=== PATIENT | female | born 1935 | race Caucasian/White ===

== ENCOUNTER 2023-07-24 00:35 | Outpatient (REF) | payer MEDICARE, OTHER, SELFPAY ==
[2023-07-24 07:22] LABS: Calcium 8.6 mg/dL (8.5-10.1); Estimated GFR (African America 50 (>=60); Estimated GFR (Non-African Ame 42 (>=60)
== END 2023-07-24 00:36 | disposition home or self-care (01) ==
LOC: LAB 00:35
PROVIDERS: PCP Family Medicine; Visit Provider Family Medicine
DX: M81.0 Age-related osteoporosis without current pathological fracture (principal)
CPT/HCPCS: 36415; 82306; 82310; 82565

== ENCOUNTER 2024-06-18 08:17 | Inpatient (IN) | payer MEDICARE, OTHER, MEDICAID, SELFPAY ==
[2024-06-18] VITALS (35 sets, daily range): BP systolic 108–143; BP diastolic 72–104; PULSE 75–93; TEMP 36.4–36.9; O2SAT 83–99; BMI 18.2; BMI 18.0
--- NOTE | 2024-06-18 08:23 | XR_ITS ---
The [address] [address] Patient Name: BILL KO MRN: [id number] date: 1935 Sex: F Assigned Patient Location: ER Current Patient Location: ER Accession/Order Number: [id number] Exam Date: 06/18/2024 08:30 Report Date: 06/18/2024 08:57 At the request of: BETZAIDA MADRID Procedure: XR hip RT 2V w/ pelvis Exam: Radiographs: XR hip RT 2V w/ pelvis Reason for exam: fall, right hip injury and pain Comparison: Plain films dated 02/09/2018 XR/XR hip RT 2V w/ pelvis IMPRESSION: Contour irregularity along the right pubic body suggestive of acute fracture. Possible nondisplaced fracture of the right superior pubic ramus. Consider further evaluation with CT. Moderate right hip degenerative change. Lower extremity atherosclerotic calcifications. Remainder of the right hip radiographs is unremarkable. Electronically authenticated by: HUSSAIN MCLEAN Date: 06/18/2024 08:57
--- NOTE | 2024-06-18 08:23 | ED.FALL1 ---
HPI HPI - Fall General Chief Complaint: Fall Stated Complaint: FALL Time Seen by Provider: 06/18/24 08:17 History of Present Illness HPI Narrative: pt sent by EMS from [place] after being found on the floor after unwitnessed fall. Pt apparently injured the right hip - she has dementia and cannot give HPI or ROS. She struggles to answer simple questions such as last name and birthdate, which is apparently at her baseline. no sign of injury to the head, neck, torso or other extremities. We were told by [place] that the patient was a full code but her documentation lists DNC Related Data Home Medications ?Medication ?Instructions ?Recorded ?Confirmed amlodipine 5 mg tablet 5 mg PO DAILY 06/18/24 06/18/24 donepezil 10 mg tablet 10 mg PO BEDTIME 06/18/24 06/18/24 lovastatin 10 mg tablet 5 mg PO BEDTIME 06/18/24 06/18/24 mirtazapine 15 mg tablet 15 mg PO BEDTIME 06/18/24 06/18/24 sertraline 25 mg tablet 12.5 mg PO DAILY 06/18/24 06/18/24 Allergies Allergy/AdvReac Type Severity Reaction Status Date / Time clindamycin Allergy Unknown Unknown Verified 06/18/24 08:31 latex Allergy Unknown Unknown Verified 06/18/24 08:31 Sulfa (Sulfonamide Allergy Unknown Unknown Verified 06/18/24 08:31 Antibiotics) Opioid HPI Opioid Management Most Recent Pain and Opioid Data: Last Pain Scale 8 06/18/24 09:12 06/18/24 Last ED Pain Assessment 06/18/24 11:51 Last MAR Pain Assessment 06/18/24 09:12 [facility] PFS Medical History (Updated 06/18/24 @ 12:06 by Pratik Arndt) 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 - Personal history of non-Hodgkin lymphomas (ICD-10) History of anxiety ?Z86.59 - Personal history of other mental and behavioral disorders (ICD-10) Hx of primary hypertension ?Z86.79 - Personal history of other diseases of the circulatory system (ICD-10) Hx of chronic kidney disease ?Z87.448 - Personal history of other diseases of urinary system (ICD-10) History of depression ?Z86.59 - Personal history of other mental and behavioral disorders (ICD-10) History of malignant neoplasm of uterus ?Z85.42 - Personal history of malignant neoplasm of other parts of uterus (ICD-10) History of asthma ?Z87.09 - Personal history of other diseases of the respiratory system (ICD-10) Hx of osteoarthritis ?Z87.39 - Personal history of other diseases of the musculoskeletal system and connective tissue (ICD-10) Hx of osteoporosis ?Z87.39 - Personal history of other diseases of the musculoskeletal system and connective tissue (ICD-10) History of dementia ?Z86.59 - Personal history of other mental and behavioral disorders (ICD-10) Exam Narrative Exam Narrative: Nurses note and vital signs reviewed and patient is not hypoxic. afebrile General: The patient appears well and in no apparent distress. Patient is resting comfortably on cart. Skin: Warm, dry, no pallor noted. Head: Normocephalic, atraumatic Neck: Supple, trachea mid-line, no tenderness, no lymphadenopathy. Full ROM and no cervical spinal tenderness. The patient has no step-offs or crepitus noted Eyes: PERRLA, EOMI ENT: No facial injury. No oral or intraoral injury, no blood in posterior oropharynx Cardiovascular: Regular Rate and Rhythm Respiratory: Patient is in no distress, no accessory muscle use, lungs are clear to auscultation, no wheezing, rales or rhonchi Chest Wall: no tenderness, no flail chest, contusion, abrasion, or signs of trauma. Back: No thoracic vertebral or lumbar vertebral tenderness to palpation. No ecchymosis, abrasions, lacerations noted. Musculoskeletal: Tenderness to palpation of the right hip and right pelvis with pain on any attempted miniplate of the right lower extremity. She does not have any right leg length shortening. No right femoral tenderness. The remainder of the right lower extremity is unremarkable. No additional sign of long bone fracture, no tenderness, no swelling. Pulses at femoral, DP, PT, and popiteal were 2+ bilaterally. Moves all four extremities in all modalities with 5/5 strength. GI: Normal bowel sounds, no tenderness to palpation, no masses appreciated. No rebound, guarding, or rigidity noted. 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 Psychiatric: Cooperative Constitutional Vital Signs, click to edit/add: Last Vital Signs Temp 98.3 F 06/18/24 12:13 Pulse 86 06/18/24 10:30 Resp 25 H 06/18/24 10:30 BP 133/90 06/18/24 10:04 Pulse Ox 93 L 06/18/24 11:52 O2 Del Method Room Air 06/18/24 11:52 Course Vital Signs Vital signs: Vital Signs Temperature 97.6 F 06/18/24 08:23 Pulse Rate 85 06/18/24 08:23 Respiratory Rate 20 06/18/24 08:23 Blood Pressure 129/97 H 06/18/24 08:23 Pulse Oximetry 97 06/18/24 08:23 Temperature 98.3 F 06/18/24 12:13 Pulse Rate 86 06/18/24 10:30 Respiratory Rate 25 H 06/18/24 10:30 Blood Pressure 133/90 06/18/24 10:04 Pulse Oximetry 93 L 06/18/24 11:52 Oxygen Delivery Method Room Air 06/18/24 11:52 MDM - Fall MDM Narrative Medical decision making narrative: Patient sent by EMS from longterm to our ED for evaluation after being found on the floor following an unwitnessed fall. EKG obtained shortly after arrival as we were told she was full code. But review of her [place] paperwork indicates that she is DNRCC. Blood drawn and sent for evaluation. Xrays of the right hip and pelvis were ordered. X-ray revealed what appears to be a subcapital fracture with possible acetabular involvement. I ordered the patient undergo CT scanning of the right hip at the request of the radiologist. Peripheral IV was established, basic blood work drawn and sent for testing and the patient was ordered to receive IV Zofran to limit or prevent nausea and IV fentanyl for pain Before the CT was read, the patient's daughter who is also the medical power of privacy attorney came to the ED and I spoke with her about this patient. The changes to be seen on the right foot apparently are new or and although the purpling looks old, she asked if we could do an x-ray of that right foot, which I ordered. I also ordered her to receive 0.5 mg of Dilaudid IV for additional pain control. labs -white blood cell count 22.7. Left shift is noted. Cathed UA ordered. BMP reveals mild elevation of sodium, chloride, BUN, creatinine and glucose with a mild decrease in potassium. The changes in the right foot may be associated with some cellulitis, therefore the patient was ordered to receive IV Ancef. CT revealed superior and likely inferior pubic rami fractures but no femoral head, neck or body fractures. Pt & daughter informed of this. UA revealed acute UTI, which is likely the source of her leukocytosis. spoke with the daughter and we will admit the patient to treat the uti and help manage her care acutely due to difficulty using her walker to ambulate due to the pubic rami fractures. Dr Ramirez and i discussed the case and he agreed to obs [facility] admission Lab Data Attestation: I reviewed the patient's lab results. Labs: Lab Results 06/18/24 06/18/24 Range/Units 09:05 12:09 WBC 22.7 H (4.0-11.0) 10^3/uL RBC 4.36 (4.20-5.40) 10^6/uL Hgb 9.6 L (12.0-16.0) g/dL Hct 31.4 L (36.0-48.0) % MCV 72.0 L (81.0-99.0) fL MCH 22.0 L (26.7-34.0) pg MCHC 30.6 (29.9-35.2) g/dL RDW 25.8 H (11.0-15.0) % Plt Count 392 (150-450) 10^3/uL MPV 10.8 (9.5-13.5) fL Seg Neuts % (Manual) 85.0 H (43.0-75.0) Lymphocytes % (Manual) 3.0 L (20.5-60.0) % Monocytes % (Manual) 11.0 (1.7-12.0) % Eosinophils % (Manual) 0.0 L (0.9-7.0) % Basophils % (Manual) 1.0 (0.2-2.0) % Neutrophils # (Manual) 19.29 H (1.4-6.5) 10^3/uL Lymphocytes # (Manual) 0.68 L (1.20-3.80) 10^3/uL Monocytes # (Manual) 2.49 H (0.30-0.80) 10^3/uL Eosinophils # (Manual) 0.00 (0.00-0.70) 10^3/uL Basophils # (Manual) 0.22 H (0.00-0.10) 10^3/uL PT 12.1 H (9.0-11.6) sec INR 1.16 APTT 38.7 H (22.3-36.2) sec Sodium 146 H (136-145) mmol/L Potassium 3.3 L (3.5-5.1) mmol/L Chloride 109 H (98-107) mmol/L Carbon Dioxide 28.1 (21.0-32.0) mmol/L Anion Gap 12.2 BUN 22.0 H (7.0-18.0) mg/dL Creatinine 1.28 H (0.55-1.02) mg/dL Est GFR ( Amer) 48 L (>=60 mL/min/1.73m^2) Est GFR (Non-Af Amer) 39 L (>=60 mL/min/1.73m^2) BUN/Creatinine Ratio 17.2 Glucose 165 H (74-106) mg/dL Calcium 8.5 (8.5-10.1) mg/dL Urine Color Yellow (YELLOW) Urine Clarity Cloudy A (CLEAR) Urine pH 6.0 (5.0-9.0) Ur Specific [place] >=1.030 A (1.005-1.025) Urine Protein 30 A (NEG/TRACE) mg/dL Urine Glucose (UA) Negative (NEGATIVE) mg/dL Urine Ketones Negative (NEGATIVE) mg/dL Urine Occult Blood Trace-i (NEGATIVE) Urine Nitrite Positive A (NEGATIVE) Urine Bilirubin Negative (NEGATIVE) Urine Urobilinogen 2.0 A (0.2-1.0) EU/dL Ur Leukocyte Esterase Trace A (NEGATIVE) Urine RBC 5-10 A (0-2) #/HPF Urine WBC 2-5 A (NONE SEEN) #/HPF Ur Squamous Epith Cells Few A (NONE/RARE) #/LPF Ur Transition Epith Cell Rare A (NONE SEEN) #/LPF Urine Crystals None seen (None Seen) #/HPF Urine Bacteria Large A (NONE SEEN) #/HPF Urine Casts None seen (NONE SEEN) #/LPF Urine Mucus Small A (NONE SEEN) Ur Culture Indicated? Yes Imaging Data xr hip, ct hip, xr foot: Attestation: I have reviewed the pertinent imaging results. Radiologist's impression: ITS Impressions Hip/Pelvis X-Ray 06/18/24 08:23 IMPRESSION: Contour irregularity along the right pubic body suggestive of acute fracture. Possible nondisplaced fracture of the right superior pubic ramus. Consider further evaluation with CT. Moderate right hip degenerative change. Lower extremity atherosclerotic calcifications. Remainder of the right hip radiographs is unremarkable. Electronically authenticated by: HUSSAIN MCLEAN Date: 06/18/2024 08:[address] 06/18/24 09:03 IMPRESSION: 1. Fractures of right-sided pubic rami as described. Electronically authenticated by: LARA VEGA Date: 06/18/2024 11:52 ECG Data Attestation: I personally reviewed and interpreted this ECG as follows: Interpretation: EKG interpretation: Emergency Department physician interpretation. Right bundle branch block, left anterior fascicular block. Indeterminate axis. T wave inversion is noted in inferior leads. No ST segment elevation or depression. Discharge Plan Discharge Chief Complaint: Fall Clinical Impression: Closed fracture of right superior pubic ramus, Closed fracture of right inferior pubic ramus Time of Disposition Decision: 10:46 Prescriptions / Home Meds: No Action amlodipine 5 mg tablet 5 mg PO DAILY donepezil 10 mg tablet 10 mg PO BEDTIME lovastatin 10 mg tablet 5 mg PO BEDTIME mirtazapine 15 mg tablet 15 mg PO BEDTIME sertraline 25 mg tablet 12.5 mg PO DAILY Print Language: Lithuanian
--- NOTE | 2024-06-18 08:37 | ECG_ITS ---
[facility] Test Date: 2024-06-18 Pat Name: BILL KO Department: Room: 217 Gender: Female [employer] [facility]: : 1935 Requested By: Pratik Arndt Order Number: [id number] Reading MD: VERONICA KINNEY Measurements Intervals [place] Rate: 84 P: 76 WA: 150 QRS: -85 QRSD: 132 T: -64 QT: 382 QTc: 423 Interpretive Statements 1100 Sinus rhythm 1470 with occasional supraventricular premature complexes 2450 Right bundle branch block 2630 Left anterior fascicular block 3413 Cannot rule out septal myocardial infarction, probably old 7300 Indeterminate axis 9150 abnormal ECG Electronically Signed On 06-19-2024 8:11:52 EST by VERONICA KINNEY
--- OUTSIDE RECORDS SUMMARY | 2024-06-18 08:49 | XMS_ITS | CCD ---
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 Role Phone Timothy Washington Primary Care Provider Kristy Rowe Attending Provider TIMOTHY WASHINGTON Primary Care Unavailable CHERYL SUTTON Admitting Unavailable CHEYRL SUTTON Attending Unavailable CHERYL SUTTON Consulting Unavailable SUNI FAUST Consulting Unavailable CACHORRO FLANNERY Consulting Unavailable JUSTYN ANDREWS Consulting Unavailable MISC, DOCTOR Admitting Unavailable MISC, DOCTOR Attending Unavailable TIMOTHY WASHINGTON G Primary Care Unavailable MISC, DOCTOR Consulting Unavailable CACHORRO MEDRANO Consulting Unavailable STEPHANIALONGTIMOTHY Admitting Unavailable STEPHANIALONG, TIMOTHY John Attending Unavailable STEPHANIALONG, TIMOTHY John Consulting Unavailable STEPHANIALONG, TIMOTHY G Primary Care Unavailable WYATT MURRY Admitting Unavailable WYATT MURRY Attending Unavailable WYATT MURRY Consulting Unavailable JOSSY GEE Consulting Unavailable Furlong Timothy SNYDER Primary Care Provider [phone] TIMOTHY WASHINGTON Referring Unavailable STEPHANIALONG, TIMOTHY G Primary Care Unavailable STEPHANIALONG, TIMOTHY G Referring Unavailable STEPHANIALONG, TIMOTHY G Primary Care Unavailable ANNMARIENG, TIMOTHY G Attending Unavailable STEPHANIALONG, TIMOTHY G Referring Unavailable FURLONG, TIMOTHY G Primary Care Unavailable FURLONG, TIMOTHY G Attending Unavailable STEPHANIALONG, TIMOTHY G Referring Unavailable FURLONG, TIMOTHY G Primary Care Unavailable Unavailable Unavailable Unavailable Allergies Allergy Classification Reported Allergen(s) Allergy Type Date of Onset Reaction(s) Facility (10 sources) Clindamycin; Translations: [CLINDAMYCIN] Drug Allergy 0 Rash [facility] (11 sources) Latex; Translations: [latex] Allergy to substance 3 Rash [facility] (10 sources) Sulfonamides (Antibiotic); Translations: [SULFA (SULFONAMIDE ANTIBIOTICS)] Allergy to substance 3 Other (See Comments) [facility] (1 source) Sulfonamides (Antibiotic) Drug allergy (disorder) 5 [facility] Medications Current Medications Medication Drug Class(es) Dates Sig (Normalized) Sig (Original) amLODIPine 5 mg oral tablet (7 sources) Dihydropyridine Calcium Channel Hernan Start: 01-30-2023 take 1 tablet by mouth once daily amLODIPine (NORVASC) 5 mg tablet TAKE ONE TABLET BY MOUTH ONCE DAILY 30 tablet 10 01/30/2023 Active Start: 02-20-2020 take 5 mg by mouth once daily Amlodipine Active 5 MG Oral Daily February 20, 2020 10:23am antiox #8/om3/dha/epa/lut/ze ax (PRESERVISION AREDS 2, OMEGA-3, ORAL) (6 sources) antiox #8/om3/dh a/epa/lut/zeax (PRESERVISION AREDS 2, OMEGA-3, ORAL) Take by mouth. Active antiox #8/om3/dh a/epa/lut/zeax (PRESERVISION AREDS 2, OMEGA-3, ORAL) Take by mouth. 0 Active diaper,brief,adult,disposabl e misc (1 source) Start: 03-01-2024 diaper,brief,adult,disposabl e misc Indications: Urinary incontinence, unspecified type 1 Unit by miscellaneous route 3 (three) times a day. 96 each 11 03/01/2024 Active docusate sodium 50 mg / sennosides, assisted 8.6 mg oral tablet (7 sources) Start: 11-10-2019 take 2 tablets by mouth once daily sennosides-docusate sodium (SENOKOT-S) 8.6-50 mg Take 2 tablets by mouth nightly. 11/10/2019 Active donepezil hydrochloride 10 m g oral tablet (6 sources) Start: 05-20-2022 take 1 tablet by mouth once daily donepeziL (ARICEPT) 10 mg tablet TAKE ONE TABLET BY MOUTH DAILY 90 tablet 3 05/20/2022 Active 120 actuat fluticasone propionate 0.044 mg/actuat metered dose inhaler (9 sources) Cortico steroid Start: 07-22-2023 take 1 puff(s) by inhalat ion in the morning fluticasone furoate (ARNUITY ELLIPTA) 100 mcg/actuation blister with device Indications: Moderate persistent asthma, unspecified whether complicated Inhale 1 puff in the morning. 1 each 5 07/22/2023 Active Start: 07-21-2023 End: 07-22-2023 take 2 puff(s) by inhalation in the morning fluticasone propionate (FLOVENT HFA) 44 mcg/actuation inhaler Inhale 2 puffs in the morning and 2 puffs before bedtime. 10.6 g 2 07/23/2023 Active Start: 02-20-2020 take 1 puff(s) by in halation twice daily Fluticasone Propionate Active 2 PUFF Inhalation Twice daily February 20, 2020 10:23am Start: 07-02-2012 End: 07-21-2023 take 2 puff(s) by inhalation in the morning fluticasone propionate (FLOVENT HFA) 44 mcg/actuation inhaler Indications: severe chronic obstructive pulmonary disease Inhale 2 puffs in the morning and 2 puffs before bedtime. Indications: worsening of debilitating chronic lung disease called COPD. 0 07/02/2012 07/21/2023 Discontinued (Reorder) lovastatin 10 mg oral tablet (7 sources) HMG-CoA Reductase Inhibitor Start: 09-15-2022 take 0.5 tablet by mouth once daily lovastatin (MEVACOR) 10 mg tablet TAKE 1/2 TABLET BY MOUTH DAILY 45 tablet 1 09/15/2022 Active Start: 02-20-2020 take 10 mg by mouth once daily Lovastatin Active 10 MG Oral Daily February 20, 2020 10:23am mirtazapine 15 mg oral tablet (7 sources) Start: 08-14-2022 take 1 tablet by mouth once daily mirtazapine (REMERON) 15 mg tablet TAKE ONE TABLET BY MOUTH DAILY 30 tablet 5 08/14/2022 Active Start: 02-20-2020 take 15 mg by mouth once daily Mirtazapine Active 15 MG Oral Daily February 20, 2020 10:23am multivitamin (THERAGRAN) tablet (6 sources) Start: 12-24-2004 take 1 tablet by mouth in the morning multivitamin (THERAGRAN) tablet Take 1 tablet by mouth in the morning. 12/24/2004 Active Start: 12-24-2004 take 1 tablet by valeri th in the morning multivitamin (THERAGRAN) tablet Take 1 tablet by mouth in the morning. 0 12/24/2004 Active Yjmhrvtyqroj-Xnde-Pwpnj Acid (1 source) Start: 02-20-2020 take 1 tablet by mouth once daily Tvcacyrgivdf-Oitq-Lmymy Acid Active 1 TAB Oral Daily February 20, 2020 10:23am [place]-3 Fatty Acids (1 source) Start: 02-20-2020 take 1000 mg by mouth once daily [place]-3 Fatty Acids Active 1000 MG Oral Daily February 20, 2020 10:23am pantoprazole 40 mg extended release oral tablet (1 source) Proton Pump Inhibitor Start: 02-20-2020 take 40 mg by mouth once daily Pantoprazole Active 40 MG Oral Daily February 20, 2020 10:23am polyethylene glycol 3350 [id number] mg powder for oral solution (5 sources) Osmotic Laxative Start: 11-12-2023 polyethylene glycol (GLYCOLAX) 17 gram/dose powder TAKE 17 GRAMS BY MOUTH IN THE MORNING 510 g 5 11/12/2023 Active Start: 06-25-2023 polyethylene g lycol (GLYCOLAX) 17 gram/dose powder Take 17 g by mouth in the morning. 0 06/25/2023 Active sertraline 25 mg oral tablet (7 sources) Serotonin Reuptake Inhibitor Start: 02-20-2020 take 25 mg by mouth once daily Sertraline Active 25 MG Oral Daily February 20, 2020 10:23am take 0.5 tablet by m outh every other day sertraline (ZOLOFT) 25 mg tablet Indications: anxiety with depression Take 0.5 tablets (12.5 mg total) by mouth every other day Indications: anxiousness associated with depression. Active Vitamin D3-Vitamin K2 (1 source) Start: 02-20-2020 take 1 tablet by mouth once daily Vitamin D3-Vitamin K2 Active 1 TAB Oral Daily February 20, 2020 10:23am Completed/Discontinued Medications Medication Drug Class(es) Dates Sig (Normalized) Sig (Original) acetaminophen 500 mg oral tablet (1 source) Start: 07-28-2023 End: 07-28-2023 acetaminophen (TYLENOL EXTRA STRENGTH) tablet 500 mg Start: 07-28-2023 End: 07-28-2023 acetaminophen (TYLENOL EXTRA STRENGTH) tablet 500 mg Calcium Carbonate / vitamin D3 (6 sources) End: 03-01-2024 take 2 tablets by mouth in the morning calcium carbonate/vitamin D3 (CALCIUM 600 + D,3, ORAL) Take 2 tablets by mouth in the morning. 03/01/2024 Discontinued (Therapy completed) take 2 tablets by mo uth in the morning calcium carbonate/vitamin D3 (CALCIUM 60 0 + D,3, ORAL) Take 2 tablets by mouth in the morning. 0 Active 100 ml zoledronic acid 0.05 mg/ml injection (1 source) Bisphosphonate Start: 07-28-2023 End: 07-28-2023 zoledronic acid (RECLAST) IVPB 5 mg/100 mL in mannitol 5% and water (0.05 mg/mL premix) Start: 07-28-2023 End: 07-28-2023 zoledronic acid (RECLAST) IV PB 5 mg/100 mL in mannitol 5% and water (0.05 mg/mL premix) Problems Active Problems Problem Classification Problem Date Documented Date Episodic/Chronic Allergic reactions (1 source) Dermatitis, unspecified; Translations: [Allergic contact dermatitis] Episodic Anxiety disorders (7 sources) Anxiety; Translations: [Anxiety disorder, unspecified] Onset: 04-09-2022 04-09-2022 Chronic Asthma (9 sources) Unspecified asthma, uncomplicated; Translations: [Asthma] Onset: 11-04-2019 04-09-2022 Chronic Cancer of ovary (1 source) Personal history of malignant neoplasm of ovary; Translations: [PERSONAL HX MALIG NEOPLASM OVARY] Onset: 02-01-2020 Episodic Cancer of stomach (1 source) Personal history of other malignant neoplasm of stomach; Translations: [PERS HX OTH MALIG NEOPLASM STOMACH] Onset: 02-01-2020 Episodic Cancer of uterus (1 source) Personal history of malignant neoplasm of other parts of uterus; Translations: [PERS HX MAL NEOPLSM OTH PART UTRUS] Onset: 02-01-2020 Episodic Chronic kidney disease (7 sources) Chronic kidney disease, unspecified; Translations: [Chronic kidney disease stage 3] Onset: 02-01-2020 04-09-2022 Chronic Chronic kidney disease (1 source) Chronic kidney disease; Translations: [Chronic kidney disease, stage 3b] Onset: 12-10-2023 Chronic obstructive pulmonary disease and bronchiectasis (8 sources) Chronic obstructive pulmonary disease, unspecified; Translations: [Chronic obstructive lung disease] Onset: 01-27-2013 04-09-2022 Chronic Delirium, dementia, and amnestic and other cognitive disorders (7 sources) Senile dementia; 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] Onset: 10-13-2022 10-13-2022 Chronic Diseases of white blood cells (1 source) Elevated white blood cell count, unspecified; Translations: [ELEVATED WHITE BLOOD CELL COUNT UNS] Onset: 11-04-2019 Chronic Disorders of lipid metabolism (8 sources) Hypercholesterolemia; Translations: [Pure hypercholesterolemia, unspecified] Onset: 05-28-2016 04-09-2022 Chronic Essential hypertension (9 sources) Essential (primary) hypertension; Translations: [Essential hypertension] Onset: 11-04-2019 04-09-2022 Chronic External cause codes: Fall (2 sources) Other fall on same level, initial encounter; Translations: [Fall from bed, initial encounter] Onset: 11-04-2019 Genitourinary symptoms and ill-defined conditions (8 sources) Urinary incontinence; Translations: [Unspecified urinary incontinence] Onset: 10-13-2022 10-13-2022 Chronic Hypertension with complications and secondary hypertension (8 sources) Hypertensive chronic kidney disease with stage 1 through stage 4 chronic kidney disease, or unspecified chronic kidney disease; Translations: [Hypertensive renal disease] Onset: 02-01-2020 10-13-2022 Chronic Mood disorders (6 sources) Depressive disorder; Translations: [Depression] Onset: 04-30-2017 04-09-2022 Chronic Mood disorders (7 sources) Mood disorders; Translations: [Depression, unspecified] Onset: 05-04-2023 Resolved: 03-01-2024 05-04-2023 Osteoarthritis (6 sources) Osteoarthritis; Translations: [Unspecified osteoarthritis, unspecified site] Onset: 05-27-2016 04-09-2022 Chronic Osteoporosis (10 sources) Age-related osteoporosis without current pathological fracture; Translations: [Senile osteoporosis] Onset: 03-04-2018 03-04-2018 Chronic Other acquired deformities (6 sources) Acquired scoliosis; Translations: [Other secondary scoliosis, lumbar region] Onset: 11-03-2019 11-03-2019 Chronic Other nervous system disorders (6 sources) Spinal cord disease; Translations: [Disease of spinal cord, unspecified] Onset: 05-04-2023 05-04-2023 Chronic Other nervous system disorders (1 source) Disease of spinal cord, unspecified; Translations: [Disease of spinal cord, unspecified] Onset: 05-04-2023 Chronic Other skin disorders (1 source) Inflammatory dermatosis; Translations: [Dermatitis] Episodic Other skin disorders (1 source) Personal history of diseases of the skin and subcutaneous tissue; Translations: [History of ganglion cyst] Episodic Retinal detachments; defects; vascular occlusion; and retinopathy (6 sources) Retinal artery occlusion; Translations: [Unspecified retinal vascular occlusion] Onset: 04-09-2022 04-09-2022 Chronic Spondylosis; intervertebral disc disorders; other back problems (18 sources) Degeneration of cervical intervertebral disc; Translations: [Other cervical disc degeneration, unspecified cervical region] Onset: 11-03-2019 11-03-2019 Chronic Sprains and strains (1 source) Sprain of joints and ligaments of unspecified parts of neck, initial encounter; Translations: [SPRAIN JNT LIG UNS PARTS NECK INIT] Onset: 02-01-2020 Episodic Unclassified (1 source) Outpatient Infusion Onset: 07-28-2023 Unclassified (1 source) Dementia in other diseases classified elsewhere, moderate, without behavioral disturbance, psychotic disturbance, mood disturbance, and anxiety; Translations: [Dementia in other diseases classified elsewhere, moderate, without behavioral disturbance, psychotic disturbance, mood disturbance, and anxiety] Onset: 10-13-2022 Unclassified (1 source) CDK Onset: 12-10-2023 Urinary tract infections (5 sources) Urinary tract infection, site not specified; Translations: [UTI SITE NOT SPECIFIED] Onset: 11-04-2019 Episodic Past or Other Problems Problem Classification Problem Date Documented Da te Episodic/Chronic Cancer of ovary (6 sources) Malignant tumor of ovary; Translations: [Malignant neoplasm of unspecified ovary] Onset: 08-04-2012 Resolved: 10-13-2022 10-13-2022 Chronic Cancer of uterus (12 sources) Malignant neoplasm of uterus; Translations: [Malignant neoplasm of uterus, part unspecified] Onset: 09-24-1995 Resolved: 12-10-2023 04-09-2022 Chronic Non-Hodgkin`s lymphoma (12 sources) 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); Translations: [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]] Onset: 05-25-1997 Resolved: 10-13-2022 10-13-2022 Chronic Nutritional deficiencies (6 sources) Vitamin B deficiency; Translations: [Vitamin B deficiency, unspecified] Onset: 04-09-2022 04-09-2022 Episodic Other acquired deformities (6 sources) Degenerative spondylolisthesis; Translations: [Spondylolisthesis, site unspecified] Onset: 11-03-2019 11-03-2019 Episodic Other fractures (1 source) Stable burst fracture of first lumbar vertebra, initial encounter for closed fracture; Translations: [STBL BURST FX 1ST LV INIT BENSON FX] Onset: 11-04-2019 Episodic Other fractures (6 sources) Fracture of first lumbar vertebra; Translations: [Unspecified fracture of first lumbar vertebra, initial encounter for closed fracture] Onset: 11-03-2019 11-03-2019 Episodic Other non-traumatic joint disorders (1 source) Pain in right knee; Translations: [PAIN IN RIGHT KNEE] Onset: 11-04-2019 Episodic Other skin disorders (1 source) O/E - right healed foot ulcer; Translations: [Healed ulcer of right foot on examination] Pathological fracture (16 sources) Age-related osteoporosis with current pathological fracture, vertebra(e), initial encounter for fracture; Translations: [Pathological fracture of lumbar vertebra due to secondary osteoporosis] Onset: 11-03-2019 11-03-2019 Episodic Spondylosis; intervertebral disc disorders; other back problems (18 sources) Cervicalgia; Translations: [Dorsalgia, unspecified] Onset: 11-02-2019 11-03-2019 Episodic Results Test Name Value Interpretation Reference Range Facility COMPREHENSIVE METABOLIC PANE Fabien 12-10-2023 Albumin [Mass/Vol] 4.0 g/dL Normal 3.2-5.3 [facility] Comment on above: Performed By: #### C CATY, 33928-6 #### [facility] ([id number]) [address] [place] [address] ALP [Catalytic activity/Vol] 121 U/L Normal 39-130 [facility] Comment on above: Performed By: #### Lakshmi BYRNE, 15680-7 #### [facility] ([id number]) [address], [address] [place] [address] ALT [Catalytic activity/Vol] 24 U/L Normal 0-31 [facility] Comment on above: Performed By: #### Lakshmi BYRNE, 50879-7 #### [facility] ([id number]) [address], [address] [place] [address] Anion gap [Moles/Vol] 9 mmol/L Normal 5-15 [facility] Comment on above: Performed By: #### Lakshmi BYRNE, 48386-0 #### [facility] ([id number]) [address], [address] [place] [address] AST [Catalytic activity/Vol] 33 U/L Normal 0-41 [facility] Comment on above: Performed By: #### Lakshmi BYRNE, 12638-1 #### [facility] ([id number]) [address], [address] [place] [address] Bilirubin [Mass/Vol] 0.3 mg/dL Normal 0.3-1.2 [facility] Comment on above: Performed By: #### Lakshmi BYRNE, 57709-8 #### [facility] ([id number]) [address], [address] [place] [address] Calcium [Mass/Vol] 8.8 mg/dL Normal 8.5-10.5 [facility] Comment on above: Performed By: #### Lakshmi BYRNE, 29933-0 #### [facility] ([id number]) [address], [address] [place] [address] Chloride [Moles/Vol] 106 mmol/L Normal 98-109 [facility] Comment on above: Performed By: #### Lakshmi BYRNE, 81062-0 #### [facility] ([id number]) [address], [address] [place] [address] CO2 [Moles/Vol] 26 mmol/L Normal 22-32 [facility] Comment on above: Performed By: #### Lakshmi BYRNE, 56024-8 #### [facility] ([id number]) [address], [address] [place] [address] Creatinine [Mass/Vol] 1.14 mg/dL High 0.40-1.00 [facility] Comment on above: Result Comment: METH OD TRACEABLE TO IDMS STANDARD Performed By: #### Lakshmi BYRNE, 41074-0 #### [facility] ([id number]) [address], [address] [place] [address] GFR/1.73 sq M.predicted among non-blacks MDRD (S/P/Bld) [Vol rate/Area] 47 mL/min/{1.73_m2} Low >59 [facility] Comment on above: Result Comment: Reported eGFR is based on the CKD-EPI 2020 equation that does not use a race coefficient. Performed By: #### Lakshmi BYRNE, 89105-7 #### [facility] ([id number]) [address], [address] [place] [address] Glucose [Mass/Vol] 96 mg/dL Normal 65-99 [facility] Comment on above: Performed By: #### Lakshmi BYRNE, 87317-4 #### [facility] ([id number]) [address], [address] [place] [address] Potassium [Moles/Vol] 4.1 mmol/L Normal 3.5-5.0 [facility] Comment on above: Performed By: #### Lakshmi BYRNE 68201-2 #### [facility] ([id number]) [address], [address] [place] [address] Protein [Mass/Vol] 7.0 g/dL Normal 6.0-8.0 [facility] Comment on above: Performed By: #### Lakshmi BYRNE 56187-7 #### [facility] ([id number]) [address], [address] [place] [address] Sodium [Moles/Vol] 141 mmol/L Normal 134-146 [facility] Comment on above: Performed By: #### C CATY, 63557-6 #### [facility] ([id number]) [address], [facility] [address] [place] [address] Urea nitrogen [Mass/Vol] 21 mg/dL Normal 5-27 [facility] Comment on above: Performed By: #### C CATY, 60903-7 #### [facility] ([id number]) [address], [address] [place] [address] Lipid 1996 panelon 4 Cholesterol [Mass/Vol] 163 mg/dL Normal 150-200 [facility] Comment on above: Performed By: #### C CATY, 70213-5 #### [facility] ([id number]) [address], [address] [place] [address] Cholesterol in HDL [Mass/Vol] 76 mg/dL Normal >39 [facility] Comment on above: Result Comment: HDL <40 mg/dL - High Risk HDL > or = 40mg/dL- Desirable HDL >60 mg/dL - Negative Risk Performed By: #### C CATY, 20373-9 #### [facility] ([id number]) [address], [address] [place] [address] Cholesterol in LDL [Mass/Vol] 71 mg/dL Normal <130 [facility] Comment on above: Result Comment: LDL <100 mg/dL - Desirable LDL >160 mg/dL - High Risk Performed By: #### C CATY, 45087-8 #### [facility] ([id number]) [address], [address] [place] [address] Cholesterol in VLDL [Mass/Vol] 16 mg/dL Normal 0-30 [facility] Comment on above: Performed By: #### C CATY, 53622-0 #### [facility] ([id number]) [address], [address] [place] [address] CHOLESTEROL:HDL 2.1 Normal 1.0-5.0 [facility] Comment on above: Performed By: #### C CATY, 39530-1 #### [facility] ([id number]) [address], [address] [place] [address] Triglyceride [Mass/Vol] 82 mg/dL Normal 27-150 [facility] Comment on above: Performed By: #### Lakshmi BYRNE, 09414-7 #### [facility] ([id number]) [address], [address] [place] [address] CULTURE, URINE, ROUTINEon CULTURE, URINE, ROUTINE SEE NOTE Normal [facility] Comment on above: Result Comment: CULTURE, URINE, ROUTINE Micro Number: [id number] Test Status: Final Specimen Source: Urine Specimen Quality: Adequate Result: Growth of mixed fran was isolated, suggesting probable contamination. No further testing will be performed. If clinically indicated, recollection using a method to minimize contamination, with prompt transfer to Urine Culture Transport Tube, is recommended. Performed By: #### 3 95 #### [facility] [address], [address] [place] [phone] Bar Porter: Shashi Hutchins MD BASIC METABOLIC PANELon 03-26 Calcium [Mass/Vol] 9.1 mg/dL Normal 8.6-10.4 [facility] Comment on above: Performed By: #### 1 0165, 9280 #### [facility] [address], [address] [place] [phone] Bar Porter: Shashi Hutchins MD Chloride [Moles/Vol] 108 mmol/L Normal 98-110 [facility] Comment on above: Performed By: #### 1 0165, 7600 #### [facility] [place] [address] Bar Porter: Shashi Hutchins MD CO2 [Moles/Vol] 27 mmol/L Normal 20-32 [facility] Comment on above: Performed By: #### 1 016, 7600 #### [facility] [place] [address] Bar Porter: Shashi Hutchins MD Creatinine [Mass/Vol] 0.99 mg/dL High 0.60-0.88 [facility] Comment on above: Result Comment: For patients >49 years of age, the reference limit for Creatinine is approximately 13% higher for people identified as -Monegasque. Performed By: #### 1 016, 0 #### [facility] [place] [address] Bar Porter: Shashi Hutchins MD eGFR NON-AFR. [place] 52 mL/min/1.73m2 Low > OR = 60 [facility] Comment on above: Performed By: #### 1 016, 7600 #### [facility] [place] [address] Bar Porter: Shashi Hutchins MD GFR/1.73 sq M.predicted among blacks MDRD (S/P/Bld) [Vol rate/Area] 60 mL/min/{1.73_m2} Normal > OR = 60 [facility] Comment on above: Performed By: #### 1 016, 7600 #### [facility] [place] [address] Bar Porter: Shashi Hutchins MD Glucose [Mass/Vol] 113 mg/dL Normal 65-139 [facility] Comment on above: Result Comment: Non-fasting reference interval For someone without known diabetes, a glucose value between 100 and 125 mg/dL is consistent with prediabetes and should be confirmed with a follow-up test. Performed By: #### 1 0165, 7600 #### [facility] of [address], [address] [place] [address] Bar Porter: Shashi Hutchins MD Potassium [Moles/Vol] 3.9 mmol/L Normal 3.5-5.3 [facility] Comment on above: Performed By: #### 1 0165, 7600 #### [facility] of [address], [address] [place] [address] Bar Porter: Shashi Hutchins MD Sodium [Moles/Vol] 143 mmol/L Normal 135-146 [facility] Comment on above: Performed By: #### 1 0165, 7600 #### [facility] of [address], [address] [place] [address] Bar Porter: Shashi Hutchins MD Urea nitrogen [Mass/Vol] 17 mg/dL Normal 7-25 [facility] Comment on above: Performed By: #### 1 0165, 7600 #### [facility] of [address], [address] [place] [address] Bar Porter: Shashi Hutchins MD Urea nitrogen/Creatinin e [Mass ratio] 17 mg/mg Normal 6-22 [facility] Comment on above: Performed By: #### 1 0165, 7600 #### [facility] [place] [address] [address] Porter: Shashi Hutchins MD LIPID PANEL, [place] [address]-2 Cholesterol [Mass/Vol] 151 mg/dL Normal <200 [facility] Comment on above: Order Comment: FASTI NG:NO FASTING: NO Performed By: #### 1 0165, 7600 #### [facility] [place] [address] [place] Porter: Shashi Hutchins MD Cholesterol in HDL [Mass/Vol] 67 mg/dL Normal > OR = 50 [facility] Comment on above: Order Comment: FASTI NG:NO FASTING: NO Performed By: #### 1 0165, 7600 #### [facility] [place] [address] [place] Porter: Shashi Hutchins MD Cholesterol in LDL [Mass/Vol] 67 mg/dL Normal [facility] Comment on above: Order Comment: FASTI NG:NO FASTING: NO Result Comment: Refe rence range: <100 Desirable range <100 mg/dL for primary prevention; <70 mg/dL for patients with CHD or diabetic patients with > or = 2 CHD risk factors. LDL-C is now calculated using the Deana calculation, which is a validated novel method providing better accuracy than the Friedewald equation in the estimation of LDL-C. Jac BHATT et al. SUMAYA. 2013;310(77): 4705-1526 (http://education.Eyelation/faq/SCQ836) Performed By: #### 1 0165, 7600 #### [facility] [address], [address] [place] [address] Bar Porter: Shashi Hutchins MD Cholesterol.total/ Cholesterol in HDL [Mass ratio] 2.3 {ratio} Normal <5.0 [facility] Comment on above: Order Comment: FASTI NG:NO FASTING: NO Performed By: #### 1 0165, 7600 #### [facility] [place] [address] Bar Porter: Shashi Hutchins MD NON HDL CHOLESTEROL 84 mg/dL (calc) Normal <130 [facility] Comment on above: Order Comment: FASTI NG:NO FASTING: NO Result Comment: For patients with diabetes plus 1 major ASCVD risk factor, treating to a non-HDL-C goal of <100 mg/dL (LDL-C of <70 mg/dL) is considered a therapeutic option. Performed By: #### 1 0165, 7600 #### [facility] [address], [address] [place] [address] Bar Porter: Shashi Hutchins MD Triglyceride [Mass/Vol] 90 mg/dL Normal <150 [facility] Comment on above: Order Comment: FASTI NG:NO FASTING: NO Performed By: #### 1 0165, 7600 #### [facility] [place] [address] [place] [address] Bar Porter: Shashi Hutchins MD CBC (INCLUDES DIFF/PLT)on Basophils (Bld) [#/Vol] 0.056 10*3/uL Normal 0-200 [facility] Comment on above: Performed By: #### 6 22, 6399, 94631, 718, 905, 51355 #### [facility] [place] [address] [place] Porter: Shashi Hutchins MD Basophils/100 WBC (Bld) 0.6 % Normal [facility] Comment on above: Performed By: #### 6 22, 6399, 36397, 718, 905, 53881 #### [facility] [place] [address] Bar Porter: Shashi Hutchins MD Eosinophils (Bld) [#/Vol] 0.112 10*3/uL Normal 15-500 [facility] Comment on above: Performed By: #### 6 22, 6399, 99551, 718, 905, 47114 #### [facility] [place] [address] Bar Porter: Shashi Hutchins MD Eosinophils/100 WBC (Bld) 1.2 % Normal [facility] Comment on above: Performed By: #### 6 22, 6399, 42412, 718, 905, 80052 #### [facility] [place] [address] Bar Porter: Shashi Hutchins MD Erythrocyte distribution width (RBC) [Ratio] 17.6 % High 11.0-15.0 [facility] Comment on above: Performed By: #### 6 22, 6399, 58304, 718, 905, 32778 #### [facility] [place] [address] Bar Porter: Shashi Hutchins MD Hematocrit (Bld) [Volume fraction] 36.2 % Normal 35.0-45.0 [facility] Comment on above: Performed By: #### 6 22, 6399, 35298, 718, 905, 48351 #### [facility] [place] [address] Bar Porter: Shashi Hutchins MD Hemoglobin (Bld) [Mass/Vol] 10.8 g/dL Low 11.7-15.5 [facility] Comment on above: Performed By: #### 6 22, 63, 16026, 71, 905, 83418 #### [facility] of [address], [address] [place] [address] Bar Porter: Shashi Hutchins MD Lymphocytes (Bld) [#/Vol] 2.483 10*3/uL Normal 850-3900 [facility] Comment on above: Performed By: #### 6 22, 63, 86587, 71, 905, 25481 #### [facility] [place] [address] Bar Porter: Shashi Hutchins MD Lymphocytes/100 WBC (Bld) 26.7 % Normal [facility] Comment on above: Performed By: #### 6 22, 63, 21281, 71, 905, 42745 #### [facility] [place] [address] Bar Porter: Shashi Hutchins MD MCH (RBC) [Entitic mass] 23.0 pg Low 27.0-33.0 [facility] Comment on above: Performed By: #### 6 , 63, 06163, 71, 905, 11531 #### [facility] [place] [address] Bar Porter: Shashi Hutchins MD MCHC (RBC) [Mass/Vol] 29.8 g/dL Low 32.0-36.0 [facility] Comment on above: Performed By: #### 6 22, 63, 95524, 718, 905, 22922 #### [facility] [place] [address] Bar Porter: Shashi Hutchins MD MCV (RBC) [Entitic vol] 77.2 fL Low 80.0-100.0 [facility] Comment on above: Performed By: #### 6 22, 6399, 92976, 718, 905, 68470 #### [facility] [place] [address] Bar Porter: Shashi Hutchins MD Monocytes (Bld) [#/Vol] 0.856 10*3/uL Normal 200-950 [facility] Comment on above: Performed By: #### 6 22, 6399, 72007, 718, 905, 65982 #### [facility] [place] [address] Bar Porter: Shashi Hutchins MD Monocytes/100 WBC (Bld) 9.2 % Normal [facility] Comment on above: Performed By: #### 6 22, 63, 77693, 718, 905, 13286 #### [facility] [place] [address] Bar Porter: Shashi Hutchins MD Neutrophils (Bld) [#/Vol] 5.794 10*3/uL Normal 9206-4970 [facility] Comment on above: Performed By: #### 6 22, 6399, 09406, 718, 905, 36462 #### [facility] [place] [address] Bar Porter: Shashi Hutchins MD Neutrophils/100 WBC (Bld) 62.3 % Normal [facility] Comment on above: Performed By: #### 6 22, 6399, 54544, 718, 905, 52079 #### [facility] [place] [address] Bar Porter: Shashi Hutchins MD Platelet mean volume (Bld) [Entitic vol] 11.0 fL Normal 7.5-12.5 [facility] Comment on above: Performed By: #### 6 22, 6399, 69322, 718, 905, 52666 #### [facility] [place] [address] Bar Porter: Shashi Hutchins MD Platelets (Bld) [#/Vol] 556 10*3/uL High 140-400 [facility] Comment on above: Performed By: #### 6 22, 6399, 06408, 718, 905, 70028 #### [facility] [place] [address] Bar Porter: Shashi Hutchins MD RBC (Bld) [#/Vol] 4.69 10*6/uL Normal 3.80-5.10 [facility] Comment on above: Performed By: #### 6 22, 6399, 96577, 718, 905, 56726 #### [facility] [place] [address] Bar Porter: Shashi Hutchins MD WBC (Bld) [#/Vol] 9.3 10*3/uL Normal 3.8-10.8 [facility] Comment on above: Performed By: #### 6 22, 6399, 98315, 718, 905, 64063 #### [facility] [place] [address] Bar Porter: Shashi Hutchins MD [facility] 09-06-2020 Albumin [Mass/Vol] 4.2 g/dL Normal 3.6-5.1 [facility] Comment on above: Performed By: #### 6 22, 6399, 87702, 718, 905, 48895 #### [facility] [place] [address] Bar Porter: Shashi Hutcihns MD Albumin/Globulin [Mass ratio] 1.4 {ratio} Normal 1.0-2.5 [facility] Comment on above: Performed By: #### 6 22, 6399, 26331, 718, 905, 65874 #### [facility] [place] [address] Bar Porter: Shashi Hutchins MD ALP [Catalytic activity/Vol] 112 U/L Normal 37-153 [facility] Comment on above: Performed By: #### 6 22, 6399, 45244, 71, 905, 15182 #### [facility] [place] [address] Bar Porter: Shashi Hutchins MD ALT [Catalytic activity/Vol] 14 U/L Normal 6-29 [facility] Comment on above: Performed By: #### 6 22, 63, 12601, , 905, 83738 #### [facility] [place] [address] Bar Porter: Shashi Hutchins MD AST [Catalytic activity/Vol] 25 U/L Normal 10-35 [facility] Comment on above: Performed By: #### 6 22, 63, 49127, 71, 905, 82755 #### [facility] [place] [address] Bar Porter: Shashi Hutchins MD Bilirubin [Mass/Vol] 0.3 mg/dL Normal 0.2-1.2 [facility] Comment on above: Performed By: #### 6 22, 63, 26196, 71, 905, 89520 #### [facility] [place] [address] Bar Porter: Shashi Hutchins MD Calcium [Mass/Vol] 9.2 mg/dL Normal 8.6-10.4 [facility] Comment on above: Performed By: #### 6 22, 63, 68228, 71, 905, 79685 #### [facility] [place] [address] Bar Porter: Shashi Hutchins MD Chloride [Moles/Vol] 108 mmol/L Normal 98-110 [facility] Comment on above: Performed By: #### 6 22, 63, 22536, 718, 905, 06640 #### [facility] [place] [address] Bar Porter: Shashi Hutchins MD CO2 [Moles/Vol] 25 mmol/L Normal 20-32 [facility] Comment on above: Performed By: #### 6 22, 6399, 78718, 718, 905, 70926 #### [facility] [place] [address] Bar Porter: Shashi Hutchins MD Creatinine [Mass/Vol] 0.96 mg/dL High 0.60-0.88 [facility] Comment on above: Result Comment: For patients >49 years of age, the reference limit for Creatinine is approximately 13% higher for people identified as -Monegasque. Performed By: #### 6 22, 6399, 52423, 718, 905, 19560 #### [facility] [place] [address] [place] Porter: Shashi Hutchins MD eGFR NON-AFR. PAKISTANI 54 mL/min/1.73m2 Low > OR = 60 [facility] Comment on above: Performed By: #### 6 22, 6399, 61422, 718, 905, 51390 #### [facility] [place] [address] Bar Porter: Shashi Hutchins MD GFR/1.73 sq M.predicted among blacks MDRD (S/P/Bld) [Vol rate/Area] 63 mL/min/{1.73_m2} Normal > OR = 60 [facility] Comment on above: Performed By: #### 6 22, 63, 56244, 71, 905, 52697 #### [facility] [place] [address] Bar Porter: Shashi Hutchins MD Globulin (S) [Mass/Vol] 2.9 g/dL Normal 1.9-3.7 [facility] Comment on above: Performed By: #### 6 22, 6399, 32820, 718, 905, 63557 #### [facility] [place] [address] Bar Porter: Shashi Hutchins MD Glucose [Mass/Vol] 83 mg/dL Normal 65-99 [facility] Comment on above: Result Comment: Fasting reference interval Performed By: #### 6 22, 6399, 94492, 718, 905, 32177 #### [facility] [place] [address] Bar Porter: Shashi Hutchins MD Potassium [Moles/Vol] 4.3 mmol/L Normal 3.5-5.3 [facility] Comment on above: Performed By: #### 6 22, 6399, 87543, 718, 905, 76970 #### [facility] [place] [address] Bar Porter: Shashi Hutchins MD Protein [Mass/Vol] 7.1 g/dL Normal 6.1-8.1 [facility] Comment on above: Performed By: #### 6 22, 63, 41733, 71, 905, 69170 #### [facility] [place] [address] Bar Porter: Shashi Hutchins MD Sodium [Moles/Vol] 143 mmol/L Normal 135-146 [facility] Comment on above: Performed By: #### 6 22, 63, 26701, 71, 905, 24755 #### [facility] [place] [address] Bar Porter: Shashi Hutchins MD Urea nitrogen [Mass/Vol] 18 mg/dL Normal 7-25 [facility] Comment on above: Performed By: #### 6 22, 6399, 64229, 71, 905, 97878 #### [facility] [place] [address] Bar Porter: Shashi Hutchins MD Urea nitrogen/Creatinin e [Mass ratio] 19 mg/mg Normal 6-22 [facility] Comment on above: Performed By: #### 6 22, 6399, 06027, 718, 905, 86349 #### [facility] [place] [address] Bar Porter: Shashi Hutchins MD MAGNESIUMon 09-06-2020 Magnesium [Mass/Vol] 2.4 mg/dL Normal 1.5-2.5 [facility] Comment on above: Performed By: #### 6 22, 6399, 56584, 718, 905, 57294 #### [facility] [address], [address] [place] [address] Bar Porter: Shashi Hutchins MD PHOSPHATE ( PHOSPHORUS)on 09-06-2020 Phosphate [Mass/Vol] 4.0 mg/dL Normal 2.1-4.3 [facility] Comment on above: Performed By: #### 6 22, 6399, 79973, 718, 905, 40504 #### [facility] [place] [address] Bar Porter: Shashi Hutchins MD URIC ACIDon 09-06-2020 Urate [Mass/Vol] 5.3 mg/dL Normal 2.5-7.0 [facility] Comment on above: Result Comment: Ther apeutic target for gout patients: <6.0 mg/dL Performed By: #### 6 22, 6399, 75001, 718, 905, 59455 #### [facility] [place] [address] Bar Porter: Shashi Hutchins MD VITAMIN D,25-OH,TOTAL,IAon 0 09-06-2020 VITAMIN D,25-OH,TOTAL,IA 62 ng/mL Normal 30-100 [facility] Comment on above: Result Comment: Vandana min D Status 25-OH Vitamin D: Deficiency: <20 ng/mL Insufficiency: 20 - 29 ng/mL Optimal: > or = 30 ng/mL For 25-OH Vitamin D testing on patients on D2-supplementation and patients for whom quantitation of D2 and D3 fractions is required, the QuestAssureD(TM) 25-OH VIT D, (D2,D3), LC/MS/MS is recommended: order code 66110 (patients >2yrs). See Note 1 Note 1 For additional information, please refer to http://education.GOkey.Jpwholesale/faq/NBB533 (This link is being provided for informational/ educational purposes only.) Performed By: #### 6 82, 3931, 43737, 737, 424, 78926 #### [facility] [address] [facility], [address] [place] [address] Bar Porter: Shashi Hutchins MD CT CSPINE WO CONon 0 CT CSPINE WO CON EXAMINATION: CT CSPI NE WO CON HISTORY: UNSPECIFIED INJURY OF HEAD, INITIAL ENCOUNTER COMPARISON: None. TECHNIQUE: CT Cervical spine without IV contrast. Coronal and sagittal reformations were performed. Dose reduction techniques were achieved by using automated exposure control and/or adjustment of mA and/or kV according to patient size and/or use of iterative reconstruction technique. FINDINGS: No evidence of traumatic subluxation. Reversal of the normal cervical lordosis, may be positional or may suggest muscle spasm. Bones are osteopenic. No obvious acute fracture. There is mild age-indeterminate height loss of the C7 vertebral body. No definite fracture lines are identified. No prevertebral soft tissue swelling. No priors are available for comparison. Correlate for focal tenderness, however favored to be a chronic finding. Status post prior C6-C7 laminectomy. There is grade 1 anterolisthesis of C3 on C4 and C4 on C5 due to severe facet arthropathy, with fusion of C3-C4 facets on the right and fusion of C4-C5 facets on the left. There is severe degenerative disc disease from C5 through C7. There is a prominent posterior disc osteophyte complexes at C5-C6 and C6-C7, however patient status post posterior decompression. No evidence of significant spinal canal stenosis in the upper cervical spine. There appears to be at least moderate right foraminal narrowing at C5-C6, with mild left foraminal narrowing at C5-C6 and mild bilateral foraminal narrowing at C6-C7. This is due to uncovertebral arthropathy. Biapical pleural parenchymal scarring. Suggestion of mild emphysematous change in the lung apices. Large irregular appearing left thyroid nodule measuring up to 2.5 cm there may also be a 9 mm right thyroid nodule. Further evaluation with thyroid ultrasound should be considered. Biopsy of the left thyroid nodule should be considered based on large size. IMPRESSION: 1. There is mild age-indeterminate height loss of the C7 vertebral body. No definite fracture lines are identified. No prevertebral soft tissue swelling. No priors are available for comparison. Correlate for focal tenderness, however favored to be a chronic finding. 2. Osteopenia. No definite CT evidence of acute osseous abnormality of the cervical spine. 3. Degenerative and postsurgical changes of the cervical spine as described above. 4. Large irregular appearing left thyroid nodule measuring up to 2.5 cm there may also be a 9 mm right thyroid nodule. Further evaluation with thyroid ultrasound should be considered. Biopsy of the left thyroid nodule should be considered based Electronically authenticated by: JOSSY GEE Date: 2020-01-29 19:18 Normal [facility] UA (CLEAN/CATCH) MICROSCOPIC IF INDICATEon 01-17-2020 Bilirubin [Mass/Vol] Negative Normal NEGATIVE [facility] Comment on above: Performed By: #### U ARMICR ####[facility] [address] [place] [address] [place] BLOOD Negative Normal NEGATIVE [facility] Comment on above: Performed By: #### U ARMICR ####[facility] [address] [place] [address] [place] Clarity (U) CLEAR Normal [facility] Comment on above: Performed By: #### U ARMICR ####[facility] [address] [place] [address] [place] Color (U) LT. YELLOW Normal YELLOW [facility] Comment on above: Performed By: #### U ARMICR ####[facility] [address] [place] [address] Glucose [Mass/Vol] Negative Normal NEGATIVE [facility] Comment on above: Performed By: #### U ARMICR ####[facility] [address] [place] Ketones Ql (U) Negative Normal NEGATIVE [facility] Comment on above: Performed By: #### U ARMICR ####[facility] [address] [place] Nitrite Ql (U) Negative Normal NEGATIVE [facility] Comment on above: Performed By: #### U ARMICR ####[facility] [address] [place] [address] [place] pH (Bld) 7.5 Normal 5-9 [facility] Comment on above: Performed By: #### U ARMICR ####[facility] [address] [place] [address] Protein [Mass/Vol] Negative Normal [facility] Comment on above: Performed By: #### U ARMICR ####[facility] [address] [place] SPEC GRAVITY 1.015 Normal 1.005-<=1.025 [facility] Comment on above: Performed By: #### U SIOBHANICR ####[facility] [address] [place] [address] [place] UR MICRO IND NOT INDICATED [facility] Comment on above: Performed By: #### U ARMICR ####[facility] [address] [place] [address] [place] Urobilinogen Qn (U) 0.2 EU/dl Normal [facility] Comment on above: Performed By: #### U ARMICR ####[facility] [address] [place] [address] [place] WBC (Bld) [#/Vol] Negative Normal NEGATIVE [facility] Comment on above: Performed By: #### U ARMICR ####[facility] [address] [place] [address] [place] XR DEXA BONE DENSITYon 12-26 XR DEXA BONE DENSITY EXAMINATION: XR DEXA BONE DENSITY HISTORY: Pathological fracture due to osteoporosis COMPARISON: No relevant comparison available. TECHNIQUE: Dual-energy X-ray absorptiometry (DXA) was performed. FINDINGS: FOREARM ANALYSIS: Average bone mineral density within the radius is 0.289 g/cm2. T-score (standard deviation relative to young adult mean): -6.0 . IMPRESSION: World Mik Organization Classification: Osteoporosis - High Fracture Risk Electronically authenticated by: CACHORRO MEDRANO Date: 2019-12-27 11:07 Normal [facility] CT LSPINE WO CONon 0 CT LSPINE WO CON EXAMINATION: CT LSPI NE WO CON HISTORY: Pain. COMPARISON: None available. TECHNIQUE: CT examination of the lumbar spine without IV contrast. Coronal and sagittal reformations were performed. Dose reduction techniques were achieved by using automated exposure control and/or adjustment of mA and/or kV according to patient size and/or use of iterative reconstruction technique. FINDINGS: There is an acute burst fracture of the L1 vertebral body with up to 60% height loss centrally. There is up to 5 mm retropulsion of the posterior aspect of the L1 vertebral body. Otherwise, the vertebral body heights are preserved. There is approximately 2 mm of L3 on L4 anterolisthesis. There is approximately 2 mm of L4 on L5 anterolisthesis. Both of these are felt to be due to degenerative changes. There is mild S-shaped curvature of the thoracolumbar spine. Otherwise, the vertebral elements are in anatomic alignment. There is mild degenerative disc disease at L4-L5. There are multilevel degenerative changes including endplate osteophytes and degenerative facet arthropathy. There is mild to moderate bilateral neural foraminal narrowing at L1-L2 secondary to a mild diffuse disc bulge and ligamentum flavum hypertrophy. There is mild to moderate bilateral neural foraminal narrowing at L2-L3 secondary to mild diffuse disc bulge, degenerative facet arthropathy, and ligamentum flavum hypertrophy. There is mild to moderate bilateral neural foraminal narrowing at L3-L4 secondary to diffuse disc bulge and ligamentum flavum hypertrophy. There is severe left and mild right neural foraminal narrowing at L4-L5 secondary to diffuse disc bulge and degenerative facet arthropathy. There is mild to moderate spinal canal stenosis at the L1 vertebral level secondary to the retropulsed fragment. There is severe spinal canal stenosis at L2-L3 secondary to diffuse disc bulge and ligamentum flavum hypertrophy. There is severe spinal canal stenosis at L3-L4 secondary to diffuse disc bulge and ligamentum flavum hypertrophy. There is moderate to severe spinal canal stenosis at L4-L5 secondary to diffuse disc bulge and degenerative facet arthropathy. There is generalized osteopenia. 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 There is mild atherosclerotic disease. IMPRESSION: 1. Acute burst fracture of the L1 vertebral body with up to 60% height loss centrally and 5 mm retropulsion of the posterior aspect of the L1 vertebral body. This results in mild spinal canal stenosis. Consider further evaluation with MRI to assess for cord injury as clinically indicated. 2. Multilevel degenerative changes of the lumbar spine including multilevel severe spinal canal stenosis as described. Electronically authenticated by: Florin ANDREWS Date: 2019-11-02 23:13 Normal [facility] CT [facility] CON[facility] WITHOUT CONTRAST HISTORY: Pain. COMPARISON: None available. TECHNIQUE: Helical CT images were performed of the thoracic spine without intravenous contrast. Dose reduction techniques were achieved by using automated exposure control and/or adjustment of mA and/or kV according to patient size and/or use of iterative reconstruction technique. FINDINGS: DEVELOPMENT PROFESSIONAL RADIOGRAPH: Unremarkable. VERTEBRAL BODIES: Thoracic vertebral bodies appear normal height. There is a compression fracture noted at L2 which is described separately on the CT lumbar spine report. DISC SPACES: Normal. ALIGNMENT: Normal. POSTERIOR ELEMENTS: Thoracic posterior elements appear intact. There is a probable remote partially healed fracture of the left L1 transverse process noted. NEURAL FORAMEN: No significant stenosis. SPINAL CANAL: There is a small left paracentral disc extrusion at T12-L1 with mild canal stenosis. This extends posterior to the T12 vertebral body. SOFT TISSUES: There is a 2.7 x 1.8 cm left thyroid nodule. This was described on the thyroid ultrasound from 01/22/2017 where it was measured at 2.9 x 2.4 x 2.1 cm. Moderate atherosclerotic coronary artery and aortic calcification. There is a triangular shaped focal density in the left upper lobe on image 30 of series 3 measuring 7 x 8 mm. There is a small hiatal hernia. IMPRESSION: 1. L1 compression fracture as described on the concurrent CT lumbar spine 2. No acute thoracic spine compression fracture or subluxation. 3. Disc extrusion at T12-L1 with mild canal stenosis. Consider follow-up MRI. 4. Focal density in the left upper lobe measuring 7 x 8 mm. This may be secondary to atelectasis or scarring but recommend a follow-up dedicated chest CT. 5. 2.7 x 1.8 cm left thyroid nodule similar in size to the thyroid ultrasound from 01/22/2017. Consider follow-up ultrasound. Electronically authenticated by: CACHORRO FLANNERY Date: 2019-11-02 22:56 Normal [facility] CULTURE URINEon 11-03-2019 CULTURE URINE Culture Observations : Heavy growth of mixed genital fran. No potential pathogens seen. Normal [facility] Comment on above: Performed By: #### U RCX #### [facility] 63 [address] [place], [place] [id number] Jemal Octavia ER URINE PROFILEon 0 Bilirubin [Mass/Vol] Negative Normal NEGATIVE [facility] Comment on above: Performed By: #### AUREA SYLVESTERRO #### [facility] [address] [place] [address] Jemal Octavia BLOOD Negative Normal NEGATIVE [facility] Comment on above: Performed By: #### AUREA SYLVESTERRO #### [facility] [address] [place] [address] Jemal Octavia Clarity (U) CLEAR Normal [facility] Comment on above: Performed By: #### AUREA SYLVESTERRO #### [facility] [address] [place] [address] Jemal Octavia Color (U) YELLOW Normal YELLOW [facility] Comment on above: Performed By: #### YONNY SYLVESTER #### [facility] [address] [place] [address] Jemal Octavia ERUAHD A micrscopic examination will be performed if indicated. Normal [facility] Comment on above: Performed By: #### YONNY SYLVESTER #### [facility] [address] [place] [address] Jemal Octavia Glucose [Mass/Vol] Negative Normal NEGATIVE [facility] Comment on above: Performed By: #### YONNY SYLVESTER #### [facility] [address] [place] [address] Jemal Octavia Ketones Ql (U) 15 mg/dl Normal NEGATIVE The [facility] Comment on above: Performed By: #### YONNY SYLVESTER #### [facility] [address] [place] [address] Jemal Octavia Nitrite Ql (U) Negative Normal NEGATIVE [facility] Comment on above: Performed By: #### YONNY SYLVESTER #### [facility] [address] [place] [address] Jemal Octavia pH (Bld) 5.0 Normal 5-9 [facility] Comment on above: Performed By: #### YONNY SYLVESTER #### [facility] [address] [place] [address] Jemal Dudley Protein (U) [Mass/Vol] TRACE Normal [facility] Comment on above: Performed By: #### AUREA SYLVESTERRO #### [facility] [address] [place] [address] Jemalmitch Dudley SPEC GRAVITY >=1.030 Normal 1.005-<=1.025 The [facility] Comment on above: Performed By: #### YONNY SYLVESTER #### [facility] [address] [place] [address] Jemal Dudley UR MICRO IND INDICATED Normal [facility] Comment on above: Performed By: #### YONNY SYLVESTER #### [facility] [address] [place] [address] Jemal Dudley Urobilinogen Qn (U) 0.2 EU/dl Normal [facility] Comment on above: Performed By: #### YONNY SYLVESTER #### [facility] [address] [place] [address] Jemal Dudley WBC (Bld) [#/Vol] SMALL Normal NEGATIVE The [facility] Comment on above: Performed By: #### AUREA SYLVESTERRO #### [facility] [address] [place] [address] Jemalmitch Dudley URINE MICROSCOPIC ONLYon Bacteria LM.HPF (Urine sed) [#/Area] SMALL Normal NONE SEEN [facility] Comment on above: Performed By: #### AUREA SYLVESTERRO #### [facility] [address] [place] [address] Jemalmitch Dudley CAST NONE SEEN Normal NONE SEEN [facility] Comment on above: Performed By: #### AUREA SYLVESTERRO #### [facility] [address] [place], [place] [address] Jemal Octavia Crystals LM Nom (Urine sed) NONE SEEN Normal NONE SEEN [facility] Comment on above: Performed By: #### E SREEKANTH, UMNIKKIERO #### [facility] [address] [id number] Jemal Octavia CULTURE INDICATED Normal [facility] Comment on above: Performed By: #### E SREEKANTH, UMNIKKIERO #### [facility] [address] [place], [place] [address] Jemal Octavia Epithelial cells LM.HPF (Urine sed) [#/Area] FEW Normal [facility] Comment on above: Performed By: #### E SREEKANTH, UMNIKKIERO #### [facility] [address] [place], [place] [address] Jemal Octavia MUCOUS NONE SEEN Normal NONE SEEN [facility] Comment on above: Performed By: #### Eufemia STACK, UMNIKKIERO #### [facility] [address] [id number] Jemal Octavia RBC (U) [#/Vol] NONE SEEN Normal 0-2 The [facility] Comment on above: Performed By: #### Eufemia STACK, UMNIKKIERO #### [facility] [address] [id number] Jemal Octavia WBC (Bld) [#/Vol] 5-10 Normal NONE SEEN The [facility] Comment on above: Performed By: #### E SREEKANTH, UMNIKKIERO #### [facility] [address] [place], [place] [address] Jemal Octavia XR KNEE RT 4V or >on 020 XR KNEE RT 4V or > EXAM: XR KNEE RT 4V or > HISTORY: Pain COMPARISON: None. TECHNIQUE: 4 views of the right knee are submitted for review. FINDINGS: Mild diffuse bony demineralization is seen. No acute fracture is seen. Patellofemoral joint compartment narrowing is seen. Tricompartment subchondral sclerosis is seen. Chondrocalcinosis is seen in the lateral joint compartment. Vascular calcification is seen. The soft tissues are otherwise unremarkable. No significant joint effusion is seen. IMPRESSION: No evidence for acute fracture or malalignment. Mild diffuse bony demineralization. Electronically authenticated by: SUNI FAUST Date: 2019-11-03 00:02 Normal [facility] CBC W MANUAL DIFFon 11-02-19 20 ACANTHOCYTES 2+ Normal [facility] Comment on above: Performed By: #### Lakshmi OLSON #### [facility] [address] [place] [address] Jemal Octavia ATYPICAL LYMPH # Normal The [facility] Comment on above: Performed By: #### Lakshmi OLSON #### [facility] [address] [place] [address] Jemal Octavia ATYPICAL LYMPH % Normal [facility] Comment on above: Performed By: #### Lakshmi OLSON #### [facility] [address] [place] [address] Jemal Octavia BAND # 0.4 103/ul Critically high 0.0-0.3 The [facility] Comment on above: Performed By: #### Lakshmi OLSON #### [facility] [address] [place] [address] Jemal Octavia BAND % 2 % Normal 0-5 [facility] Comment on above: Performed By: #### Lakshmi OLSON #### [facility] [address] [place] [address] Jemal Octavia BASOM # 0.00 103/ul Normal 0.00-0.10 [facility] Comment on above: Performed By: #### Lakshmi OLSON #### [facility] [address] [place] [address] Jemal Octavia BASOM % 0.0 % Critically low 0.2-2.0 The [facility] Comment on above: Performed By: #### Lakshmi OLSON #### [facility] [address] [place] [address] Jemal Octavia BLAST # Normal [facility] Comment on above: Performed By: #### Lakshmi OLSON #### [facility] [address] [place] [address] Jemal Octavia BLAST % Normal [facility] Comment on above: Performed By: #### Lakshmi OLSON #### [facility] [address] [place] [address] Jemal Octavia CORRECTED WBC Normal 4.0-11.0 The [facility] Comment on above: Performed By: #### Lakshmi OLSON #### [facility] [address] [place] [address] Jemal Octavia Eosinophils (Bld) [#/Vol] 0.00 103/ul Normal 0.00-0.70 [facility] Comment on above: Performed By: #### Lakshmi OLSON #### [facility] [address] [place], [place] [address] Jemal Octavia Eosinophils/100 WBC (Bld) 0.0 % Critically low 0.9-7.0 [facility] Comment on above: Performed By: #### C WESLEY #### [facility] [address] [place], [place] [address] Jemal Octavia Erythrocyte distribution width (RBC) [Ratio] 19.8 % Critically high 11.0-15.0 [facility] Comment on above: Performed By: #### Lakshmi OLSON #### [facility] [address] [place] [address] Jemal Octavia Hematocrit (Bld) [Volume fraction] 31.4 % Critically low 36.0-48.0 [facility] Comment on above: Performed By: #### Lakshmi OLSON #### [facility] [address] [place], [place] [address] Jemal Octavia Hemoglobin (Bld) [Mass/Vol] 10.1 g/dl Critically low 12.0-16.0 [facility] Comment on above: Performed By: #### Lakshmi OLSON #### [facility] [address] [place], [place] [address] Jemal Octavia HYPOCHROMASIA SLIGHT Normal [facility] Comment on above: Performed By: #### Lakshmi OLSON #### [facility] [address] [place] [address] Jemal Octavia LYMPHM # 2.42 103/ul Normal 1.20-3.80 [facility] Comment on above: Performed By: #### Lakshmi OLSON #### [facility] [address] [place], [place] [address] Jemal Octavia LYMPHM% 12.0 % Critically low 20.5-60.0 The [facility] Comment on above: Performed By: #### Lakshmi OLSON #### [facility] [address] [place] [address] Jemalmitch Dudley MCH (RBC) [Entitic mass] 23.5 pg Critically low 26.7-34.0 [facility] Comment on above: Performed By: #### C WESLEY #### [facility] [address] [place] [address] Jemalmitch Dudley MCHC (RBC) [Mass/Vol] 32.2 g/dl Normal 29.9-35.2 [facility] Comment on above: Performed By: #### C WESLEY #### [facility] [address] [place] [address] Jemal Octavia MCV (RBC) [Entitic vol] 73.0 fL Critically low 81.0-99.0 [facility] Comment on above: Performed By: #### Lakshmi OLSON #### [facility] [address] [place] [address] Jemal Octavia METAMYELOCYTE # Normal The [facility] Comment on above: Performed By: #### Lakshmi OLSON #### [facility] [address] [place] [address] Jemal Octavia METAMYELOCYTE % Normal [facility] Comment on above: Performed By: #### Lakshmi OLSON #### [facility] [address] [place] [address] Jemal Octavia MONOM# 0.40 103/ul Normal 0.30-0.80 [facility] Comment on above: Performed By: #### Lakshmi OLSON #### [facility] [address] [place] [address] Jemal Octavia MONOM% 2.0 % Normal 1.7-12.0 [facility] Comment on above: Performed By: #### Lakshmi OLSON #### [facility] [address] [place] [address] Jemal Octavia MYELOCYTE # Normal [facility] Comment on above: Performed By: #### Lakshmi OLSON #### [facility] [address] [place] [address] Jemal Octavia MYELOCYTE % Normal [facility] Comment on above: Performed By: #### Lakshmi OLSON #### [facility] [address] [id number] Jemal Octavia NRBC Normal [facility] Comment on above: Performed By: #### Lakshmi OLSON #### [facility] [address] [id number] Jemal Octavia OVALOCYTES 1+ Normal [facility] Comment on above: Performed By: #### Lakshmi OLSON #### [facility] [address] [id number] Jemal Octavia Platelet mean volume (Bld) [Entitic vol] 10.8 fL Normal 9.5-13.5 [facility] Comment on above: Performed By: #### Lakshmi OLSON #### [facility] [address] [id number] Jemal Octavia Platelets (Bld) [#/Vol] 321 103/ul Normal 150-450 [facility] Comment on above: Performed By: #### Lakshmi OLSON #### [facility] [address] [id number] Jemal Octavia RBC (Bld) [#/Vol] 4.30 106/ul Normal 4.20-5.40 [facility] Comment on above: Performed By: #### Lakshmi OLSON #### [facility] [address] [id number] Jemalmitch Chavezen SEG # 16.97 103/ul Critically high 1.40-6.50 [facility] Comment on above: Performed By: #### Lakshmi OLSON #### [facility] [address] [id number] Jemal Octavia Segmented neutrophils/100 WBC (Bld) 84.0 % Critically high 43.0-75.0 [facility] Comment on above: Performed By: #### Lakshmi OLSON #### [facility] [address] [id number] Jemal Octavia WBC (Bld) [#/Vol] 20.2 103/ul Critically high 4.0-11.0 [facility] Comment on above: Performed By: ###Juan OLSON #### [facility] [address] [place], [place] [address] Jemalmitch Chavezen PROF 14(COMP METB)on 020 Albumin [Mass/Vol] 3.3 g/dL Critically low 3.5-5.0 Th e [facility] Comment on above: Performed By: #### C MP #### [facility] [address] [place], [place] [address] Jemal Octavia Albumin/Globulin [Mass ratio] 1.0 {ratio} Normal [facility] Comment on above: Performed By: #### C MP #### [facility] [address] [place], [place] [address] Jemal Octavia ALP [Catalytic activity/Vol] 105 U/L Normal 38-126 [facility] Comment on above: Performed By: #### C MP #### [facility] [address] [place] [address] Jemal Octavia ALT [Catalytic activity/Vol] 33 U/L Normal 9-52 [facility] Comment on above: Performed By: #### C MP #### [facility] [address] [place], [place] [address] Jemal Octavia Anion gap [Moles/Vol] 11.5 mmol/L Normal [facility] Comment on above: Performed By: #### C MP #### [facility] [address] [place], [place] [address] Jemal Octavia AST [Catalytic activity/Vol] 35 U/L Normal 14-36 [facility] Comment on above: Performed By: #### C MP #### [facility] [address] [place], [place] [address] Jemal Octavia Bilirubin Ql (U) 0.4 mg/dL Normal 0.2-1.3 [facility] Comment on above: Performed By: #### C MP #### [facility] [address] [place], [place] [address] Jemal Octavia Calcium [Mass/Vol] 8.5 mg/dL Normal 8.4-10.2 [facility] Comment on above: Performed By: #### C MP #### [facility] [address] [place], [place] [address] Jemal Octavia Chloride [Moles/Vol] 102 mmol/L Normal 98-107 [facility] Comment on above: Performed By: #### C MP #### [facility] [address] [id number] Jemal Octavia CO2 [Moles/Vol] 26.1 mmol/L Normal 22.0-30.0 [facility] Comment on above: Performed By: #### C MP #### [facility] [address] [address] Jemal Octavia Creatinine [Mass/Vol] 1.06 mg/dL Critically high 0.52-1.04 [facility] Comment on above: Performed By: #### C MP #### [facility] [address] [address] Jemal Octavia EGFR-AF PAKISTANI 60 mL/min/1.73m2 Normal >=60 Th [facility] Comment on above: Performed By: #### C MP #### [facility] [address] [address] Jemal Octavia EGFR-NON AF PAKISTANI 50 mL/min/1.73m2 Critically low >=60 [facility] Comment on above: Performed By: #### C MP #### [facility] [address] [id number] Jemal Octavia Globulin (S) [Mass/Vol] 3.4 g/dL Normal [facility] Comment on above: Performed By: #### C MP #### [facility] [address] [address] Jemal Octavia Glucose [Mass/Vol] 165 mg/dL Critically high 74-106 T [facility] Comment on above: Performed By: #### C MP #### [facility] [address] [id number] Jemal Octavia Potassium [Moles/Vol] 3.6 mmol/L Normal 3.4-5.0 [facility] Comment on above: Performed By: #### C MP #### [facility] [address] [address] Jemal Octavia Protein [Mass/Vol] 6.7 g/dL Normal 6.1-8.2 [facility] Comment on above: Performed By: #### C MP #### [facility] [address] [place] [address] Jemal Octavia Sodium [Moles/Vol] 136 mmol/L Critically low 137-145 Th e [facility] Comment on above: Performed By: #### C MP #### [facility] [address] [place], [place] [address] Jemal Octavia Urea nitrogen [Mass/Vol] 15.0 mg/dL Normal 7.0-17.0 [facility] Comment on above: Performed By: #### C MP #### [facility] [address] [place] [address] Jemal Octavia Urea nitrogen/Creatinin e [Mass ratio] 14.2 mg/mg Normal [facility] Comment on above: Performed By: #### C MP #### [facility] [address] [place] [address] Jemal Octavia PROTIMEon 11-02-2019 INR Coag (PPP) [Relative time] 1.10 {INR} Normal [facility] Comment on above: Performed By: #### P T, PTT #### [facility] [address] [place], [place] [address] Jemal Octavia PT Coag (PPP) [Time] SEE BELOW Normal [facility] Comment on above: Result Comment: ANNETTE RED INR: 2.0 - 3.0 CONDITIONS NOT LISTED BELOW 2.5 - 3.5 FOR PROSTHETIC HEART VALVE REPLACEMENT 2.5 - 3.5 RECURRENT THROMBOSIS Performed By: #### P T, PTT #### [facility] [address] [place], [place] [address] Jemal Octavia PT Coag (PPP) [Time] PLEASE NOTE: NORMAL RANGE CHANGE 02-09-2014 DUE TO REAGENT LOT CHANGE Normal [facility] Comment on above: Performed By: #### P T, PTT #### [facility] [address] [place], [place] [address] Jemal Octavia PT Coag (PPP) [Time] 11.4 s Normal 9.0-11.6 [facility] Comment on above: Performed By: #### P T, PTT #### [facility] [address] [place], [place] [address] Jemal Dudley PTTon 11-02-2019 aPTT Coag (Bld) [Time] 31.7 s Normal 22.3-36.2 [facility] Comment on above: Performed By: #### P T, PTT #### [facility] [address] [place], [place] [address] Jemal Dudley aPTT Coag (Bld) [Time] PLEASE NOTE: NORMAL RANGE CHANGE 04-18-2015 DUE TO REAGENT LOT CHANGE Normal [facility] Comment on above: Performed By: #### P T, PTT #### [facility] [address] [place], [place] [address] Jemal Dudley Vital Signs Date Time Vital Sign Value Performing Clinician Facility 03-01-2024 14:24-0400 Body height 170.2 cm [email or web address] Work Phone: [facility] [employer] 03-01-2024 14:24-0400 Body mass index (BMI) [Ratio] 20.88 kg/m2 Define [employer] DO [facility] 03-01-2024 14:24-0400 Body temperature 97.5 [degF] TimothyVeryLastRoom DO [facility] 03-01-2024 14:24-0400 Body weight 60.46 kg [employer] DO [facility] 03-01-2024 14:24-0400 Diastolic blood pressure 58 mm[Hg] [employer] DO [facility] 03-01-2024 14:24-0400 Heart rate 63 /min [employer] DO [facility] 03-01-2024 14:24-0400 SaO2% (BldA) [Mass fraction] 97 % [employer] DO [facility] 03-01-2024 14:24-0400 Systolic blood pressure 120 mm[Hg] Timothy Washington DO Work Phone: [facility] 07-28-2023 14:11-0500 Body height 172.7 cm Pfo 6 [facility] 07-28-2023 14:11-0500 Body mass index (BMI) [Ratio] 18.4 kg/m2 Pfo 6 [facility] 07-28-2023 14:11-0500 Body temperature 97.59 [degF] Pfo 6 [facility] 07-28-2023 14:11-0500 Body weight 54.88 kg Pfo 6 [facility] 07-28-2023 14:11-0500 Diastolic blood pressure 82 mm[Hg] Pfo 6 [facility] 07-28-2023 14:11-0500 Heart rate 78 /min Pfo 6 [facility] 07-28-2023 14:11-0500 Respiratory rate 15 /min Pfo 6 [facility] 07-28-2023 14:11-0500 SaO2% (BldA) [Mass fraction] 100 % Pfo 6 [facility] 07-28-2023 14:11-0500 Systolic blood pressure 141 mm[Hg] Pfo 6 [facility] 02-20-2020 10:33-0400 BMI (Body Mass Index) 17.2 kg/m2 [facility] 02-20-2020 10:33-0400 Body weight 51.25 kg [facility] 02-20-2020 10:33-0400 Height 172.72 cm [facility] 02-20-2020 10:20-0400 Body Temperature 97.7 [degF] [facility] 02-20-2020 10:20-0400 BP Diastolic 79 mm[Hg] [facility] 02-20-2020 10:20-0400 BP Systolic 121 mm[Hg] [facility] 02-20-2020 10:20-0400 Pulse (Heart Rate) 92 /min [facility] 02-20-2020 10:20-0400 Respiratory Rate 18 /min [facility] Encounters Encounter Date Encounter Type Care Provider Facility Start: 03-01-2024 End: 03-01-2024 Office outpatient visit 15 minutes Timothy Washington DO Work Phone: [facility] Comment on above: Urinary incontinence , unspecified type (Primary Dx); Hypertensive kidney disease with stage 3a chronic kidney disease ([facility]) Start: 03-01-2024 End: 03-01-2024 ambulatory [facility] Start: 12-10-2023 End: 12-10-2023 ambulatory [facility] Start: 12-10-2023 End: 12-10-2023 ambulatory [facility] Start: 07-28-2023 End: 07-28-2023 ambulatory [facility] Start: 07-28-2023 End: 07-28-2023 ambulatory [facility] Infusion Chair 6 Chapis Guerrier [facility] Comment on above: Age-related osteopor osis without current pathological fracture (Primary Dx) Start: 07-22-2023 Orders Only Timothy henderson DO Work Phone: [facility] Comment on above: Moderate persistent asthma, unspecified whether complicated (Primary Dx) Start: 07-21-2023 Orders Only Timothy henderson DO Work Phone: [facility] Comment on above: Moderate persistent asthma, unspecified whether complicated (Primary Dx) Start: 07-18-2023 Orders Only Timothy henderson DO Work Phone: [facility] Comment on above: Age-related osteopor osis without current pathological fracture (Primary Dx) Start: 07-14-2023 Orders Only Not In System Ref Prov [facility] Start: 02-20-2020 End: 02-20-2020 Discharged Recurring [facility] [facility] Start: 01-29-2020 End: 01-29-2020 Patient encounter procedure TIMOTHY WASHINGTON Facility:H1 Start: 01-17-2020 End: 01-17-2020 Patient encounter procedure TIMOTHY WASHINGTON Facility:H1 Start: 12-27-2019 End: 12-28-2019 Patient encounter procedure DOCTOR MISC Facility:H1 Start: 11-02-2019 End: 11-03-2019 Patient encounter procedure TIMOTHY WASHINGTON Facility:H1 Procedures Date Procedure Procedure Detail Performing Clinician Start: 03-01-2024 Adult depression screening assessment Timothy Catevelyn DO Work Phone: Start: 05-04-2023 Adult depression screening assessment Not Ref Prov Plan of Treatment Date Care Activity Detail Author Start: 03-01-2025 Adult BMI Screening Adult BMI Screen ing [facility] Start: 03-01-2025 Depression Screening Depression Scre ening [facility] Start: 03-01-2025 Fall Risk Screening Fall Risk Screen ing [facility] Start: 03-01-2025 Tobacco Screening Tobacco Screening [facility] Start: 09-08-2024 End: 09-08-2024 Patient encounter procedure 09/08/2024 1:00 PM EDT Office Visit [facility] Internal Medicine - Family Medicine [address] [place] [address] Timothy Washington DO [address], [place] [address] [facility] Internal Medicine - Family Medicine Start: 07-31-2024 DTaP,Tdap and Td Vaccines (2 - Td or Tdap) DTaP,Tdap and Td Vaccines (2 - Td or Tdap) [facility] Start: 05-09-2024 End: 05-09-2024 Patient encounter procedure 05/09/2024 9:50 AM EST Office Visit [facility] Internal Medicine - Family Medicine [address] [place] [address] Timothy Washington DO [address], [place] [address] [facility] Internal Medicine - Family Medicine Start: 05-04-2024 Adult BMI Screening Adult BMI Screen ing [facility] Start: 05-04-2024 Depression Screening Depression Scre ening [facility] Start: 05-04-2024 Fall Risk Screening Fall Risk Screen ing [facility] Start: 05-04-2024 Tobacco Screening Tobacco Screening [facility] Start: 01-24-2024 COVID-19 Vaccine ( season) COVID-19 Vaccine () [facility] Start: 01-24-2024 Influenza vaccination Influenza Vacc ine [facility] Start: 07-28-2023 End: 07-28-2023 ambulatory 07/28/2023 2:30 PM EST Infusion [facility] [address] [place] [phone] [facility] Start: 01-23-2023 COVID-19 Vaccine ( season) COVID-19 Vaccine () [facility] Start: 01-23-2023 Influenza vaccination Influenza Vacc ine [facility] Start: 02-10-1953 Adult BMI Follow Up Plan Adult BMI Follow Up Plan [facility] Start: 1935 Medicare Annual Well ness Visit Medicare Annual Wellness Visit [facility] Immunizations Immunization Date Immunization Notes Care Provider Fa cility 06-28-2020 COVID-19, mRNA, LNP- S, PF, 30mcg/0.3mL Dose Not Ref Prov [facility] 06-27-2020 COVID-19, mRNA, LNP- S, PF, 30mcg/0.3mL Dose Not Ref Prov [facility] 02-16-2020 influenza, injectabl e, quadrivalent, contains preservative Not Ref Prov [facility] 02-16-2020 influenza virus vacc ine, unspecified formulation Not Ref Prov [facility] 02-15-2019 influenza, high dose seasonal, preservative-free Not Ref Prov [facility] 12-13-2018 zoster vaccine recombinant Not Ref P rov [facility] 06-11-2018 zoster vaccine recombinant Not Ref P rov [facility] 06-10-2018 zoster vaccine recombinant Not Ref P [facility] 02-15-2018 influenza virus vacc ine, unspecified formulation Not Ref [facility] 02-15-2018 Seasonal trivalent influenza vaccine, adjuvanted, preservative free Not Ref [facility] 02-23-2017 influenza, seasonal, injectable Not Ref [facility] 02-25-2016 Seasonal trivalent influenza vaccine, adjuvanted, preservative free Not Ref [facility] 02-23-2016 influenza, high dose seasonal, preservative-free Not Ref [facility] 03-07-2015 influenza, injectabl e, quadrivalent, preservative free Not Ref [facility] 02-26-2015 influenza, injectabl e, quadrivalent, contains preservative Not Ref [facility] 02-22-2015 influenza virus vacc ine, unspecified formulation Not Ref [facility] 07-31-2014 tetanus toxoid, redu ivory diphtheria toxoid, and acellular pertussis vaccine, adsorbed Not Ref [facility] 04-28-2014 influenza, seasonal, injectable Not Ref [facility] 03-13-2014 influenza, high dose seasonal, preservative-free Not Ref [facility] 03-08-2014 zoster vaccine, live Not Ref [facility] 09-01-2013 pneumococcal conjuga te vaccine, 13 valent Not Ref [facility] 09-01-2013 pneumococcal polysaccharide vaccine, 23 valent Not Ref [facility] 03-09-2013 influenza, seasonal, injectable Not Ref [facility] 09-24-2011 zoster vaccine, live Not Ref [facility] 09-18-2011 zoster vaccine, live Not Ref [facility] 05-15-2009 novel influenza-H1N1 -09, preservative-free, injectable Not Ref [facility] 03-17-2001 pneumococcal polysaccharide vaccine, 23 valent Not Ref [facility] Payers Date Payer Category Payer Private Health Insurance [id number] 2001 Medicare MEDICARE MEDICAR E RAILROAD [id number] 2001-Present [phone] [address] [address] [place] [address] [id number] 1959 Medicare [id number] 1959 Private Health Insurance [id number] 1959 Self-pay [id number] 1936 Unknown [id number] 1936 Unknown [id number] 1936 Unknown [id number] 1936 Unknown [id number] 1936 Unknown [id number] 1936 Unknown [id number] 1936 Unknown [id number] Medicare Self Pay [id number] Unknown [id number] Social History Date Type Detail Facility Start: 04-01-2018 End: 02-20-2020 Tobacco smoking status NHIS Ex-smoker (finding) [facility] Start: 1935 Sex Assigned At Female [facility] History of tobacco use Current smoker [facility] Start: 04-01-2018 Tobacco use and exposure Smokeless tobacco non-user [facility] Start: 07-14-2023 End: 03-01-2024 Alcohol intake Current drinker of alcohol (finding) [facility] Start: 10-13-2022 End: 03-01-2024 History of Social function [facility] Start: 10-13-2022 End: 03-01-2024 Social connection and isolation panel [facility] Do you belong to any clubs or organizations such as congregational groups, unions, fraternal or athletic groups, or school groups? No [facility] Are you now , , , , never or living with a partner? [facility] How often to you hav e a drink containing alcohol? Never [facility] How many standard dr inks containing alcohol do you have on a typical day? Patient does not drink [facility] Do you feel stress - tense, restless, nervous, or anxious, or unable to sleep at night because your mind is troubled all the time - these days [OSQ] Not at all [facility] Start: 11-03-2019 Alcohol Comment occassionally [facility] Start: 1935 Sex Assigned At Not on file [facility] Medical Equipment Procedure Code Equipment Code Equipment Origin al Text Equipment Identifier Dates [facility] 30% Baso4 Pmma - [id number] - [id number] Start: 11-07-2019 Goals Date Patient Goal Desired Activity /State Personal health goal Comment on above: Formatting of this n ote might be different from the original. Evaluation of progress towards goal: Pt will D/C per therapy recommendations so she can have a safe D/C. Clinical Notes 06-15-2020 to 03-01-2024 Timothy Washington DO - 03/01/2024 2:15 PM Rosas Gotti RN - 07/28/2023 2:30 PM EST Note Date & Type Note Facility 03-01-2024 History of Present illness Narrative Subjective Patient ID: Chhaya Suarez is a 89 y.o. female. Lilliana presents today with her daughter for a [id number] visit to document her need for adult briefs. She is incontinent of urine. She has a proximally 3 accidents per day. Sometimes she has incontinence of bowel as well. She just got Medicaid and they are looking to get briefs through her insurance. She denies any dysuria. She has dementia so is not a good historian. She currently resides at an assisted living center. Her appetite is better. She has gained a little bit of weight since her last couple visits. She denies pain. The following portions of the patient's history were reviewed and updated as appropriate: allergies, current medications, past family history, past medical history, past social history, past surgical history, problem list, and medication reconciliation was completed including current medication and post discharge medication. Review of Systems Constitutional: Negative. Genitourinary: Positive for difficulty urinating. Objective Physical Exam Vitals reviewed. Exam conducted with a spiral binder present (Ariella). Constitutional: General: She is not in acute distress. Appearance: She is normal weight. HENT: Head: Normocephalic. Eyes: General: No scleral icterus. Extraocular Movements: Extraocular movements intact. Conjunctiva/sclera: Conjunctivae normal. Cardiovascular: Rate and Rhythm: Normal rate and regular rhythm. Pulses: Normal pulses. Heart sounds: Normal heart sounds. No murmur heard. Pulmonary: Effort: Pulmonary effort is normal. No respiratory distress. Breath sounds: Normal breath sounds. No wheezing, rhonchi or rales. Abdominal: General: Bowel sounds are normal. Palpations: Abdomen is soft. Tenderness: There is no abdominal tenderness. Neurological: General: No focal deficit present. Mental Status: She is alert. She is disoriented. Gait: Gait abnormal (Ambulates with a walker). Psychiatric: Attention and Perception: Attention normal. Mood and Affect: Mood normal. Speech: Speech is delayed. Behavior: Behavior normal. Behavior is cooperative. Thought Content: Thought content normal. Cognition and Memory: Cognition is impaired. Memory is impaired. She exhibits impaired recent memory and impaired remote memory. Comments: She does not initiate conversation. Pleasant, smiling Assessment/Plan Chhaya was seen today for urinary incont.. Diagnoses and all orders for this visit: Urinary incontinence, unspecified type - diaper,brief,adult,disposable misc; 1 Unit by miscellaneous route 3 (three) times a day. She is in need of adult briefs for urinary incontinence. She is not able to notify staff in time to help toilet her. She needs assistance in changing. She uses about 3 a day so we will now 3 a day which seems a bit on the low side but that is what her needs are so that is what I will prescribed. Hypertensive kidney disease with stage 3a chronic kidney disease ([facility]) Blood pressure at goal. We will recheck labs in 6 months. documented [facility] this encounter [facility] 07-28-2023 History of Present illness Narrative Patient here for reclast infusion. Patient denies any issues or complaints today. She tolerated last years dose well. She denies dental procedures, labs WNL. IV initiated per policy and tolerated well. Reclast administered without complications. NS to flush line. IV D/C'd. Patient accompanied by daughter in stable condition. documented in this encounter [email or web address] 06-15-2020 Note Patient Outreach ([place] OCC3) STEFANICHHAYA Campbell ([id number]) 1935 F Date Time Provider Department 06/15/20 NEPTALI VANN During your visit today, we recorded the following information about you: Allergies As of Date: 06/15/2020 Noted Allergy Reaction CLINDAMYCIN 06/08/2019 2 - Rash LATEX 08/04/2012 2 - Rash SULFA (SULFONAMIDE ANTIBIOTICS) 08/04/2012 5 - Intolerance Date Reviewed: 06/08/2019 Reviewed by: La Russo - Fully Assessed Order(s):SARS-COVID VACCINE 1ST DOSE APPT [[id number]] Order #: [id number] FUTURE Prescriptions as of 06/15/2020 Sig: OCUVITE LUTEIN AND ZEAXANTHIN* PreserVision AREDS-2 2 caps* SERTRALINE 25 MG TABLET sertraline 25 mg tablet CHOLECALCIFEROL (VIT D3) 5,50* q 24 HR. AMLODIPINE 5 MG TABLET Take 5 mg by mouth once daily. RECLAST INTRAVENOUS Inject intravenously. Once a* FLOVENT HFA 44 MCG/ACTUATION * OMEGA-3 FATTY ACIDS-VITAMIN E* Take 1 capsule by mouth once * CALCIUM + VITAMIN D ORAL Take 2 tablets by mouth once * MULTIVITAMIN TABLET Take one(1) tablet daily. 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 Uterine cancer [C55] 01/27/2013 COPD (chronic obstructive pulmonary disease) [J*01/27/2013 Depression [F32.9] 04/30/2017 Letter Text Encounter Status:Closed by ELOISE SLATER on 06/18/20 [facility] Evaluation note Diagnosis Age-related osteoporosis without current pathological fracture- Primary [facility] Diagnosis Moderate persistent asthma, unspecified whether complicated- Primary documented [facility] this encounter [facility] Diagnosis Moderate persistent asthma, unspecified whether complicated- Primary documented in this encounter [facility]* Diagnosis Age-related osteoporosis without current pathological fracture- Primary documented in this encounter [facility]* Diagnosis Urinary incontinence, unspecified type- Primary Hypertensive kidney disease with stage 3a chronic kidney disease ([facility]) documented in this encounter [facility] on filedocumented in this encounter [facility] filedocumented in this [facility]Not on filedocumented in this encounter [facility]Not on filedocumented in this encounter [facility] Advance Directives Advance Directive Response Recorded Date/ Time Advance Directives No January 9:05am Documents on File Type Date Recorded Patient Director Speech Language Expl amy Living Will 07/08/2023 3:40 PM LIVING BETTY L 07/08/2023 Living Will 11/16/2019 1:04 PM Durable Power of [employer] 11/16/2019 1:04 PM Latest Code Status on File Code Status Date Activated Date Inactivated Comments Full Code 11/03/2019 8:56 AM 11/10/2019 8:18 PM Date Activated Date Inactivated Comments 11/03/2019 8:56 AM 11/10/2019 8:18 PM Chief Complaint and Reason for Visit Chief Complaint Dr Washington/ right he el Reason for Visit Dermatitis Healed ulcer of right foot on examination Assessments Diagnosis Onset Date Resolution Status Dermatitis acute Healed ulcer of right foot on examination resolved Family History Relationship Condition Age at Onset Recorded Date/T epi brother Cerebrovascular accident (CVA) Unknown Not Specified Arteriosclerosis of coronary artery Unkn own Alzheimer's disease Unknown father Cerebrovascular accident (CVA) Unknown Summary Purpose Additional Source Comments INFORMATION SOURCE (unrecogn ized section and content) DATE CREATED AUTHOR 02/24/2020 [facility] DATE CREATED AUTHOR AUTHOR'S ORGANIZ ATION 04/19/2021 [facility] DATE CREATED AUTHOR AUTHOR'S ORGANIZ ATION 06/01/2021 [facility] DATE CREATED AUTHOR AUTHOR'S ORGANIZ ATION 07/29/2023 [facility] DATE CREATED AUTHOR AUTHOR'S ORGANIZ ATION 12/14/2023 [facility] DATE CREATED AUTHOR AUTHOR'S ORGANIZ ATION 03/03/2024 [facility] Care Teams (unrecognized sec tion and content) [employer] Relationship Specialty Start Date End Date Timothy Washington DO [address] [place] [address] PCP - General Family Medicine 02/12/17 [employer] Relationship Specialty Start Date End Date Timothy Washington DO [address] [place] [address] PCP - General Family Medicine 02/12/17 [employer] Relationship Specialty Start Date End Date Timothy Washington DO [address] [place] [address] PCP - General Family Medicine 02/12/17 [employer] Relationship Specialty Start Date End Date StephaniagiovanniTimothy henderson [address], [place] [address] PCP - General Family Medicine 02/12/17 [employer] Relationship Specialty Start Date End Date Timothy Washington DO [address], [place] [address] PCP - General Family Medicine 02/12/17 [employer]er Relationship Specialty Start Date End Date StephaniagiovanniTimothy henderson DO [address] [place] [address] PCP - General Family Medicine 02/12/17 Reason for Visit (unrecogniz ed section and content) Reason Comments Outpatient Infusion reclast Specialty Diagnoses / Procedures Referred By Contac t Referred To Contact Diagnoses Age-related osteoporosis without current pathological fracture Procedures IL ZOLEDRONIC ACID 1MG Timothy Washington DO [address] [place] [address] Pfo Med Onc [facility] [place] [address] Referral ID Status Reason Start Date Expiration Date V isits Requested Visits Authorized [id number] Authorized 07/18/2023 07/17/2024 1 1 Reason Comments Urinary incont. FOR RECORDS PERTAINING TO PATIENTS WHO ARE OR HAVE BEEN ENROLLED IN A CHEMICAL DEPENDENCY/SUBSTANCEABUSE PROGRAM, SOME INFORMATION MAY BE OMITTED. This clinical summary was aggregated from multiple sources. Caution should be exercised in using it in the provision of clinical care. This summary normalizes information from multiple sources, and as a consequence, information in this document may materially change the coding, format and clinical context of patient data. In addition, data may be omitted in some cases. CLINICAL DECISIONS SHOULD BE BASED ON THE PRIMARY CLINICAL RECORDS. [facility] provides no warranty or guarantee of the accuracy or completeness of information in this document.
--- NOTE | 2024-06-18 09:03 | CT_ITS ---
The [address] [address] Patient Name: BILL KO MRN: [id number] date: 1935 Sex: F Assigned Patient Location: ER Current Patient Location: ER Accession/Order Number: [id number] Exam Date: 06/18/2024 09:19 Report Date: 06/18/2024 11:52 At the request of: BETZAIDA MADRID Procedure: CT hip RT wo con EXAM: CT hip RT wo con HISTORY: right hip fx, possible pelvic fx COMPARISON: No previous. Correlation with hip x-rays same date TECHNIQUE: Triplanar imaging. FINDINGS: Osteopenia. There is a nondisplaced obliquely oriented fracture through the far lateral aspects of the right superior pubic ramus. In retrospect this is quite subtle present on plain film. Further medially there is a second fracture of the far medial aspects of the superior pubic ramus with minimal step off. Irregularity of the right inferior pubic ramus in its midportion. Some of this may be chronic but there is potential nondisplaced superimposed acute on chronic injury. Proximal femur is intact. The alignment at the symphysis is unremarkable. No obvious hip joint effusion at unenhanced CT. The musculature in the right hip region is unremarkable in density. No intramuscular hematoma is apparent. No large subcutaneous hematoma. No right inguinal mass. Calcific ASVD in the right femoral system. CT/CT hip RT wo con IMPRESSION: 1. Fractures of right-sided pubic rami as described. Electronically authenticated by: LARA VEGA Date: 06/18/2024 11:52
[2024-06-18] MEDS: ONDANSETRON PF 4 MG/2 ML VIAL IV (09:12)
[2024-06-18] MEDS: FENTANYL CITRATE/PF 100 MCG/2 ML VIAL 25 MCG IV (09:12)
[2024-06-18 09:13] LABS: Hematocrit 31.4 % (36.0-48.0); Hemoglobin 9.6 g/dL (12.0-16.0); Mean Corpuscular HGB Conc 30.6 g/dL (29.9-35.2); Mean Platelet Volume 10.8 fL (9.5-13.5); Platelet Count 392 10^3/uL (150-450); Red Blood Count 4.36 10^6/uL (4.20-5.40); Red Cell Distribution Width 25.8 % (11.0-15.0); White Blood Count 22.7 10^3/uL (4.0-11.0)
[2024-06-18 09:25] LABS: Anion Gap 12.2; BUN Creatinine Ratio 17.2; Calcium 8.5 mg/dL (8.5-10.1); Carbon Dioxide 28.1 mmol/L (21.0-32.0); Chloride 109 mmol/L (98-107); Estimated GFR (African America 48 (>=60 mL/min/1.73m^2); Estimated GFR (Non-African Ame 39 (>=60 mL/min/1.73m^2); Glucose 165 mg/dL (74-106); Potassium 3.3 mmol/L (3.5-5.1); Sodium 146 mmol/L (136-145)
[2024-06-18 09:30] LABS: INR 1.16; Prothrombin Time 12.1 sec (9.0-11.6)
[2024-06-18 09:42] LABS: Partial Thromboplastin Time 38.7 sec (22.3-36.2)
[2024-06-18 09:54] LABS: Basophils Abs Manual 0.22 10^3/uL (0.00-0.10); Lymphocytes Absolute Manual 0.68 10^3/uL (1.20-3.80); Monocytes Absolute Manual 2.49 10^3/uL (0.30-0.80); Segmented Neut Absolute Manual 19.29 10^3/uL (1.4-6.5)
--- NOTE | 2024-06-18 11:41 | XR_ITS ---
The [address] [address] Patient Name: BILL KO MRN: [id number] date: 1935 Sex: F Assigned Patient Location: ER Current Patient Location: ED.MAIN Accession/Order Number: [id number] Exam Date: 06/18/2024 11:55 Report Date: 06/18/2024 12:51 At the request of: BETZAIDA MADRID Procedure: XR foot RT min 3V EXAM: XR foot RT min 3V HISTORY: right foot ecchymosis, injury COMPARISON: None. TECHNIQUE: AP oblique lateral x-ray right foot. FINDINGS: Bones are diffusely demineralized which limits assessment for nondisplaced fracture, I do not see a definite displaced fracture or healing fracture. Degenerative changes involving the toes and plantar calcaneal spur. Vascular soft tissue calcification. XR/XR foot RT min 3V IMPRESSION: No definite fracture seen although marked demineralization limits assessment. If symptoms persist and there is clinical suspicion of fracture consider follow-up x-rays. Electronically authenticated by: DAVE HINES Date: 06/18/2024 12:51
[2024-06-18] MEDS: HYDROMORPHONE HCL 0.5 MG/0.5 ML SYRINGE IVP (11:46)
[2024-06-18] MEDS: 0.9 % SODIUM CHLORIDE 1,000 ML 200 ML IV (11:59)
[2024-06-18] MEDS: CEFAZOLIN SODIUM/DEXTROSE,ISO 1 GM/50 ML PREMIX IV (11:59)
[2024-06-18 12:33] LABS: Bilirubin Urine NEGATIVE (NEGATIVE); Blood Urine TRACE-I (NEGATIVE); Clarity Urine CLOUDY (CLEAR); Color Urine YELLOW (YELLOW); Glucose Urine UA NEGATIVE (NEGATIVE); Ketones Urine NEGATIVE (NEGATIVE); Leukocyte Esterase Urine TRACE (NEGATIVE); Nitrite Urine POSITIVE (NEGATIVE); Protein Urine 30 mg/dL (NEG/TRACE); Specific Gravity Urine >=1.030 (1.005-1.025)
[2024-06-18 12:37] LABS: Urine Culture Indicated YES; Urine Microscopic Indicated YES
[2024-06-18 12:39] LABS: Bacteria Urine LARGE #/HPF (NONE SEEN); Crystals Seen? None Seen #/HPF (None Seen); Mucus Urine SMALL (NONE SEEN); Squamous Epithelial Cell Urine FEW #/LPF (NONE/RARE); Transitional Epi Cells Urine RARE #/LPF (NONE SEEN)
[2024-06-18 12:40] LABS: Cast Seen? NONE SEEN #/LPF (NONE SEEN)
--- OUTSIDE RECORDS SUMMARY | 2024-06-18 13:53 | XMS_ITS | CCD ---
Author Organization [facility] Inform ion Partnership [facility] Care Team Providers Care People Greeter Name Role Phone Timothy Washington Primary Care Provider Kristy Rowe Attending Provider [phone] TIMOTHY WASHINGTON Primary Care Unavailable CHERYL SUTTON Admitting Unavailable CHERYL SUTTON Attending Unavailable CHERYL SUTTON Consulting Unavailable [...] Unavailable Furlong Timothy SNYDER Primary Care Provider [phone] TIMOTHY WASHINGTON Referring Unavailable STEPHANIALONG, TIMOTHY G [...] Clindamycin; Translations: [CLINDAMYCIN] Drug Allergy 0 Rash [facility] (11 sources) Latex; Translations: [latex] Allergy to substance 3 Rash [facility] (10 sources) Sulfonamides (Antibiotic); Translations: [SULFA (SULFONAMIDE ANTIBIOTICS)] Allergy to substance 3 Other (See Comments) [facility] (1 source) Sulfonamides (Antibiotic) Drug allergy (disorder) 5 [facility] Medications Current Medications Medication [...] Active docusate sodium 50 mg / sennosides, retirement 8.6 mg oral tablet (7 sources) Start: [...] mouth in the morning. 0 12/24/2004 Active Wezgekkvodhg-Wyrg-Hnmoq Acid (1 source) Start: 02-20-2020 take 1 tablet by mouth once daily Cvjbonvxbcap-Bspv-Ljlpj Acid Active 1 TAB Oral Daily February 20, 2020 10:23am Currie-3 Fatty Acids (1 source) Start: 02-20-2020 take 1000 mg by mouth once daily Currie-3 Fatty Acids Active 1000 MG Oral Daily February 20, 2020 10:23am pantoprazole 40 mg extended release oral tablet (1 source) Proton Pump Inhibitor Start: 02-20-2020 take 40 mg by mouth once daily Pantoprazole Active 40 MG Oral Daily February 20, 2020 10:23am polyethylene glycol 3350 07915 mg powder for oral solution (5 sources) [...] 12-10-2023 Albumin [Mass/Vol] 4.0 g/dL Normal 3.2-5.3 [facility] Comment on above: Performed By: #### C CATY, 92305-2 #### [facility] ([id number]) [address], [address] [place] [address] ALP [Catalytic activity/Vol] 121 U/L Normal 39-130 [facility] Comment on above: Performed By: #### Lakshmi BYRNE, 62924-8 #### [facility] ([id number]) [address], [address] [place] [address] ALT [Catalytic activity/Vol] 24 U/L Normal 0-31 [facility] Comment on above: Performed By: #### Lakshmi BYRNE, 20931-1 #### [facility] ([id number]) [address], [address] [place] [address] Anion gap [Moles/Vol] 9 mmol/L Normal 5-15 [facility] Comment on above: Performed By: #### Lakshmi BYRNE, 57377-0 #### [facility] ([id number]) [address], [address] [place] [address] AST [Catalytic activity/Vol] 33 U/L Normal 0-41 [facility] Comment on above: Performed By: #### Lakshmi BYRNE, 83922-3 #### [facility] ([id number]) [address], [address] [place] [address] Bilirubin [Mass/Vol] 0.3 mg/dL Normal 0.3-1.2 [facility] Comment on above: Performed By: #### Lakshmi BYRNE, 38042-8 #### [facility] ([id number]) [address], [address] [place] [address] Calcium [Mass/Vol] 8.8 mg/dL Normal 8.5-10.5 [facility] Comment on above: Performed By: #### Lakshmi BYRNE, 82393-5 #### [facility] ([id number]) [address], [address] [place] [address] Chloride [Moles/Vol] 106 mmol/L Normal 98-109 [facility] Comment on above: Performed By: #### Lakshmi BYRNE, 58091-3 #### [facility] ([id number]) [address], [address] [place] [address] CO2 [Moles/Vol] 26 mmol/L Normal 22-32 [facility] Comment on above: Performed By: #### Lakshmi BYRNE, 00125-2 #### [facility] ([id number]) [address], [address] [place] [address] Creatinine [Mass/Vol] 1.14 mg/dL High 0.40-1.00 [facility] Comment on above: Result Comment: METH OD TRACEABLE TO IDMS STANDARD Performed By: #### Lakshmi BYRNE, 87281-9 #### [facility] ([id number]) [address], [address] [place] [address] GFR/1.73 sq M.predicted among non-blacks MDRD (S/P/Bld) [Vol rate/Area] 47 mL/min/{1.73_m2} Low >59 [facility] Comment on above: Result Comment: Reported eGFR is based on the CKD-EPI 2020 equation that does not use a race coefficient. Performed By: #### Lakshmi BYRNE, 06113-7 #### [facility] ([id number]) [address], [address] [place] [address] Glucose [Mass/Vol] 96 mg/dL Normal 65-99 [facility] Comment on above: Performed By: #### Lakshmi BYRNE, 94514-5 #### [facility] ([id number]) [address], [address] [place] [address] Potassium [Moles/Vol] 4.1 mmol/L Normal 3.5-5.0 [facility] Comment on above: Performed By: #### Lakshmi BYRNE 63509-9 #### [facility] ([id number]) [address], [address] [place] [address] Protein [Mass/Vol] 7.0 g/dL Normal 6.0-8.0 [facility] Comment on above: Performed By: #### Lakshmi BYRNE 73726-6 #### [facility] ([id number]) [address], [address] [place] [address] Sodium [Moles/Vol] 141 mmol/L Normal 134-146 [facility] Comment on above: Performed By: #### C CATY, 35335-5 #### [facility] ([id number]) [address], [address] [place] [address] Urea nitrogen [Mass/Vol] 21 mg/dL Normal 5-27 [facility] Comment on above: Performed By: #### C CATY, 59177-6 #### [facility] ([id number]) [address], [address] [place] [address] Lipid 1996 panelon 4 Cholesterol [Mass/Vol] 163 mg/dL Normal 150-200 [facility] Comment on above: Performed By: #### C CATY, 80995-9 #### [facility] ([id number]) [address], [address] [place] [address] Cholesterol in HDL [Mass/Vol] 76 mg/dL Normal >39 [facility] Comment on above: Result Comment: HDL <40 mg/dL - High Risk HDL > or = 40mg/dL- Desirable HDL >60 mg/dL - Negative Risk Performed By: #### C CATY, 81334-9 #### [facility] ([id number]) [address], [address] [place] [address] Cholesterol in LDL [Mass/Vol] 71 mg/dL Normal <130 [facility] Comment on above: Result Comment: LDL <100 mg/dL - Desirable LDL >160 mg/dL - High Risk Performed By: #### C CATY, 49079-2 #### [facility] ([id number]) [address], [address] [place] [address] Cholesterol in VLDL [Mass/Vol] 16 mg/dL Normal 0-30 [facility] Comment on above: Performed By: #### C CATY, 50754-9 #### [facility] ([id number]) [address], [address] [place] [address] CHOLESTEROL:HDL 2.1 Normal 1.0-5.0 [facility] Comment on above: Performed By: #### C CATY, 59724-0 #### [facility] ([id number]) [address], [address] [place] [address] Triglyceride [Mass/Vol] 82 mg/dL Normal 27-150 [facility] Comment on above: Performed By: #### Lakshmi BYRNE, 28764-4 #### [facility] ([id number]) [address], [address] [place] [address] CULTURE, URINE, ROUTINEon CULTURE, URINE, ROUTINE SEE NOTE Normal [facility] Comment on above: Result Comment: CULTURE, URINE, ROUTINE Micro Number: [id number] Test Status: Final Specimen Source: Urine Specimen Quality: Adequate Result: Growth of mixed fran was isolated, suggesting probable contamination. No further testing will be performed. If clinically indicated, recollection using a method to minimize contamination, with prompt transfer to Urine Culture Transport Tube, is recommended. Performed By: #### 3 95 #### [facility] [address], [address] [place] [phone] Liquid Sugar Melter: Shashi Hutchins MD BASIC METABOLIC PANELon 03-26 Calcium [Mass/Vol] 9.1 mg/dL Normal 8.6-10.4 [facility] Comment on above: Performed By: #### 1 0165, 3240 #### [facility] [address], [address] [place] [phone] Liquid Sugar Melter: Shashi Hutchins MD Chloride [Moles/Vol] 108 mmol/L Normal 98-110 [facility] Comment on above: Performed By: #### 1 0165, 7600 #### [facility] [place] [address] Liquid Sugar Melter: Shashi Hutchins MD CO2 [Moles/Vol] 27 mmol/L Normal 20-32 [facility] Comment on above: Performed By: #### 1 016, 7600 #### [facility] [place] [address] Liquid Sugar Melter: Shashi Hutchins MD Creatinine [Mass/Vol] 0.99 mg/dL High 0.60-0.88 [facility] Comment on above: Result Comment: For patients >49 years of age, the reference limit for Creatinine is approximately 13% higher for people identified as -Bangladeshi. Performed By: #### 1 016, 0 #### [facility] [place] [address] Liquid Sugar Melter: Shashi Hutchins MD eGFR NON-AFR. THAI 52 mL/min/1.73m2 Low > OR = 60 [facility] Comment on above: Performed By: #### 1 016, 7600 #### [facility] [place] [address] Liquid Sugar Melter: Shashi Hutchins MD GFR/1.73 sq M.predicted among blacks MDRD (S/P/Bld) [Vol rate/Area] 60 mL/min/{1.73_m2} Normal > OR = 60 [facility] Comment on above: Performed By: #### 1 016, 7600 #### [facility] [place] [address] Liquid Sugar Melter: Shashi Hutchins MD Glucose [Mass/Vol] 113 mg/dL Normal 65-139 [facility] Comment on above: Result Comment: Non-fasting reference interval For someone without known diabetes, a glucose value between 100 and 125 mg/dL is consistent with prediabetes and should be confirmed with a follow-up test. Performed By: #### 1 0165, 7600 #### [facility] of [address], [address] [place] [address] Liquid Sugar Melter: Shashi Hutchins MD Potassium [Moles/Vol] 3.9 mmol/L Normal 3.5-5.3 [facility] Comment on above: Performed By: #### 1 0165, 7600 #### [facility] of [address], [address] [place] [address] Liquid Sugar Melter: Shashi Hutchins MD Sodium [Moles/Vol] 143 mmol/L Normal 135-146 [facility] Comment on above: Performed By: #### 1 0165, 7600 #### [facility] of [address], [address] [place] [address] Liquid Sugar Melter: Shashi Hutchins MD Urea nitrogen [Mass/Vol] 17 mg/dL Normal 7-25 [facility] Comment on above: Performed By: #### 1 0165, 7600 #### [facility] of [address], [address] [place] [address] Liquid Sugar Melter: Shashi Hutchins MD Urea nitrogen/Creatinin e [Mass ratio] 17 mg/mg Normal 6-22 [facility] Comment on above: Performed By: #### 1 0165, 7600 #### [facility] of [place] [address] Liquid Sugar Melter: Shashi Hutchins MD LIPID PANEL, [place] [address] Cholesterol [Mass/Vol] 151 mg/dL Normal <200 [facility] Comment on above: Order Comment: FASTI NG:NO FASTING: NO Performed By: #### 1 0165, 7600 #### [facility] of [place] [address] Liquid Sugar Melter: Shashi Hutchins MD Cholesterol in HDL [Mass/Vol] 67 mg/dL Normal > OR = 50 [facility] Comment on above: Order Comment: FASTI NG:NO FASTING: NO Performed By: #### 1 0165, 7600 #### [facility] of [place] [address] Liquid Sugar Melter: Shashi Hutchins MD Cholesterol in LDL [Mass/Vol] [...] of LDL-C. Jac BHATT et al. SUMAYA. 2013;310(55): 9210-2696 (http://education.[employer]/faq/RIB531) Performed By: #### 1 0165, 7600 #### [facility] [address], [address] [place] [address] Liquid Sugar Melter: Shashi Hutchins MD Cholesterol.total/ Cholesterol in HDL [Mass ratio] 2.3 {ratio} Normal <5.0 [facility] Comment on above: Order Comment: FASTI NG:NO FASTING: NO Performed By: #### 1 0165, 7600 #### [facility] [place] [address] Liquid Sugar Melter: Shashi Hutchins MD NON HDL CHOLESTEROL 84 mg/dL (calc) Normal <130 [facility] Comment on above: Order Comment: FASTI NG:NO FASTING: NO Result Comment: For patients with diabetes plus 1 major ASCVD risk factor, treating to a non-HDL-C goal of <100 mg/dL (LDL-C of <70 mg/dL) is considered a therapeutic option. Performed By: #### 1 0165, 7600 #### [facility] [address], [address] [place] [address] Liquid Sugar Melter: Shashi Hutchins MD Triglyceride [Mass/Vol] 90 mg/dL Normal <150 [facility] Comment on above: Order Comment: FASTI NG:NO FASTING: NO Performed By: #### 1 0165, 7600 #### [facility] of [place] [address] [place] [address] Liquid Sugar Melter: Shashi Hutchins MD CBC (INCLUDES DIFF/PLT)on Basophils (Bld) [#/Vol] 0.056 10*3/uL Normal 0-200 [facility] Comment on above: Performed By: #### 6 22, 6399, 39285, 718, 905, 07331 #### [facility] of [place] [address] Liquid Sugar Melter: Shashi Hutchins MD Basophils/100 WBC (Bld) 0.6 % Normal [facility] Comment on above: Performed By: #### 6 22, 6399, 17667, 718, 905, 15426 #### [facility] [place] [address] Liquid Sugar Melter: Shashi Hutchins MD Eosinophils (Bld) [#/Vol] 0.112 10*3/uL Normal 15-500 [facility] Comment on above: Performed By: #### 6 22, 6399, 88197, 718, 905, 69276 #### [facility] [place] [address] Liquid Sugar Melter: Shashi Hutchins MD Eosinophils/100 WBC (Bld) 1.2 % Normal [facility] Comment on above: Performed By: #### 6 22, 6399, 87516, 718, 905, 32326 #### [facility] of [place] [address] Liquid Sugar Melter: Shashi Hutchins MD Erythrocyte distribution width (RBC) [Ratio] 17.6 % High 11.0-15.0 [facility] Comment on above: Performed By: #### 6 22, 6399, 55035, 718, 905, 64078 #### [facility] of [place] [address] Liquid Sugar Melter: Shashi Hutchins MD Hematocrit (Bld) [Volume fraction] 36.2 % Normal 35.0-45.0 [facility] Comment on above: Performed By: #### 6 22, 6399, 85160, 718, 905, 92404 #### [facility] of [place] [address] Liquid Sugar Melter: Shashi Hutchins MD Hemoglobin (Bld) [Mass/Vol] 10.8 g/dL Low 11.7-15.5 [facility] Comment on above: Performed By: #### 6 22, 63, 71506, 71, 905, 30345 #### [facility] of [address], [address] [place] [address] Liquid Sugar Melter: Shashi Hutchins MD Lymphocytes (Bld) [#/Vol] 2.483 10*3/uL Normal 850-3900 [facility] Comment on above: Performed By: #### 6 22, 63, 12941, 71, 905, 56738 #### [facility] of [place] [address] Liquid Sugar Melter: Shashi Hutchins MD Lymphocytes/100 WBC (Bld) 26.7 % Normal [facility] Comment on above: Performed By: #### 6 22, 63, 16398, 71, 905, 69961 #### [facility] of [place] [address] Liquid Sugar Melter: Shashi Hutchins MD MCH (RBC) [Entitic mass] 23.0 pg Low 27.0-33.0 [facility] Comment on above: Performed By: #### 6 , 63, 98727, 71, 905, 20758 #### [facility] of [place] [address] Liquid Sugar Melter: Shashi Hutchins MD MCHC (RBC) [Mass/Vol] 29.8 g/dL Low 32.0-36.0 [facility] Comment on above: Performed By: #### 6 22, 63, 71496, 718, 905, 72378 #### [facility] of [place] [address] Liquid Sugar Melter: Shashi Hutchins MD MCV (RBC) [Entitic vol] 77.2 fL Low 80.0-100.0 [facility] Comment on above: Performed By: #### 6 22, 6399, 39895, 718, 905, 09936 #### [facility] of [place] [address] Liquid Sugar Melter: Shashi Hutchins MD Monocytes (Bld) [#/Vol] 0.856 10*3/uL Normal 200-950 [facility] Comment on above: Performed By: #### 6 22, 6399, 96804, 718, 905, 16339 #### [facility] of [place] [address] Liquid Sugar Melter: Shashi Hutchins MD Monocytes/100 WBC (Bld) 9.2 % Normal [facility] Comment on above: Performed By: #### 6 22, 63, 49827, 718, 905, 67496 #### [facility] of [place] [address] Liquid Sugar Melter: Shashi Hutchins MD Neutrophils (Bld) [#/Vol] 5.794 10*3/uL Normal 7194-4816 [facility] Comment on above: Performed By: #### 6 22, 6399, 09647, 718, 905, 60809 #### [facility] [place] [address] Liquid Sugar Melter: Shashi Hutchins MD Neutrophils/100 WBC (Bld) 62.3 % Normal [facility] Comment on above: Performed By: #### 6 22, 6399, 34734, 718, 905, 43108 #### [facility] of [place] [address] Liquid Sugar Melter: Shashi Hutchins MD Platelet mean volume (Bld) [Entitic vol] 11.0 fL Normal 7.5-12.5 [facility] Comment on above: Performed By: #### 6 22, 6399, 02905, 718, 905, 94863 #### [facility] of [place] [address] Liquid Sugar Melter: Shashi Hutchins MD Platelets (Bld) [#/Vol] 556 10*3/uL High 140-400 [facility] Comment on above: Performed By: #### 6 22, 6399, 66327, 718, 905, 89459 #### [facility] of [place] [address] Liquid Sugar Melter: Shashi Hutchins MD RBC (Bld) [#/Vol] 4.69 10*6/uL Normal 3.80-5.10 [facility] Comment on above: Performed By: #### 6 22, 6399, 18880, 718, 905, 03329 #### [facility] of [place] [address] Liquid Sugar Melter: Shashi Hutchins MD WBC (Bld) [#/Vol] 9.3 10*3/uL Normal 3.8-10.8 [facility] Comment on above: Performed By: #### 6 22, 6399, 17786, 718, 905, 84746 #### [facility] of [place] [address] Liquid Sugar Melter: Shashi Hutchins MD [facility] 09-06-2020 Albumin [Mass/Vol] 4.2 g/dL Normal 3.6-5.1 [facility] Comment on above: Performed By: #### 6 22, 6399, 64993, 718, 905, 18226 #### [facility] of [place] [address] Liquid Sugar Melter: Shashi Hutchins MD Albumin/Globulin [Mass ratio] 1.4 {ratio} Normal 1.0-2.5 [facility] Comment on above: Performed By: #### 6 22, 6399, 57738, 718, 905, 24777 #### [facility] of [place] [address] Liquid Sugar Melter: Shashi Hutchins MD ALP [Catalytic activity/Vol] 112 U/L Normal 37-153 [facility] Comment on above: Performed By: #### 6 22, 6399, 80711, 71, 905, 40761 #### [facility] of [place] [address] Liquid Sugar Melter: Shashi Hutchins MD ALT [Catalytic activity/Vol] 14 U/L Normal 6-29 [facility] Comment on above: Performed By: #### 6 22, 63, 32966, , 905, 55442 #### [facility] of [place] [address] Liquid Sugar Melter: Shashi Hutchins MD AST [Catalytic activity/Vol] 25 U/L Normal 10-35 [facility] Comment on above: Performed By: #### 6 22, 63, 59272, 71, 905, 92483 #### [facility] of [place] [address] Liquid Sugar Melter: Shashi Hutchins MD Bilirubin [Mass/Vol] 0.3 mg/dL Normal 0.2-1.2 [facility] Comment on above: Performed By: #### 6 22, 63, 20087, 71, 905, 00220 #### [facility] of [place] [address] Liquid Sugar Melter: Shashi Hutchins MD Calcium [Mass/Vol] 9.2 mg/dL Normal 8.6-10.4 [facility] Comment on above: Performed By: #### 6 22, 63, 54129, 71, 905, 27925 #### [facility] of [place] [address] Liquid Sugar Melter: Shashi Hutchins MD Chloride [Moles/Vol] 108 mmol/L Normal 98-110 [facility] Comment on above: Performed By: #### 6 22, 63, 75213, 718, 905, 09099 #### [facility] of [place] [address] Liquid Sugar Melter: Shashi Hutchins MD CO2 [Moles/Vol] 25 mmol/L Normal 20-32 [facility] Comment on above: Performed By: #### 6 22, 6399, 36341, 718, 905, 81050 #### [facility] [place] [address] Liquid Sugar Melter: Shashi Hutchins MD Creatinine [Mass/Vol] 0.96 mg/dL High 0.60-0.88 [facility] Comment on above: Result Comment: For patients >49 years of age, the reference limit for Creatinine is approximately 13% higher for people identified as -Bangladeshi. Performed By: #### 6 22, 6399, 87959, 718, 905, 30484 #### [facility] [place] [address] Liquid Sugar Melter: Shashi Hutchins MD eGFR NON-AFR. THAI 54 mL/min/1.73m2 Low > OR = 60 [facility] Comment on above: Performed By: #### 6 22, 6399, 31216, 718, 905, 25210 #### [facility] [place] [address] Liquid Sugar Melter: Shashi Hutchins MD GFR/1.73 sq M.predicted among blacks MDRD (S/P/Bld) [Vol rate/Area] 63 mL/min/{1.73_m2} Normal > OR = 60 [facility] Comment on above: Performed By: #### 6 22, 63, 29316, 71, 905, 96315 #### [facility] [place] [address] Liquid Sugar Melter: Shashi Hutchins MD Globulin (S) [Mass/Vol] 2.9 g/dL Normal 1.9-3.7 [facility] Comment on above: Performed By: #### 6 22, 6399, 81673, 718, 905, 42324 #### [facility] [place] [address] Liquid Sugar Melter: Shashi Hutchins MD Glucose [Mass/Vol] 83 mg/dL Normal 65-99 [facility] Comment on above: Result Comment: Fasting reference interval Performed By: #### 6 22, 6399, 72737, 718, 905, 70486 #### [facility] of [place] [address] Liquid Sugar Melter: Shashi Hutchins MD Potassium [Moles/Vol] 4.3 mmol/L Normal 3.5-5.3 [facility] Comment on above: Performed By: #### 6 22, 6399, 21398, 718, 905, 61192 #### [facility] of [place] [address] Liquid Sugar Melter: Shashi Hutchins MD Protein [Mass/Vol] 7.1 g/dL Normal 6.1-8.1 [facility] Comment on above: Performed By: #### 6 22, 63, 24965, 71, 905, 07888 #### [facility] of [place] [address] Liquid Sugar Melter: Shashi Hutchins MD Sodium [Moles/Vol] 143 mmol/L Normal 135-146 [facility] Comment on above: Performed By: #### 6 22, 63, 33981, 71, 905, 84784 #### [facility] [place] [address] Liquid Sugar Melter: Shashi Hutchins MD Urea nitrogen [Mass/Vol] 18 mg/dL Normal 7-25 [facility] Comment on above: Performed By: #### 6 22, 6399, 50593, 71, 905, 59529 #### [facility] of [place] [address] Liquid Sugar Melter: Shashi Hutchins MD Urea nitrogen/Creatinin e [Mass ratio] 19 mg/mg Normal 6-22 [facility] Comment on above: Performed By: #### 6 22, 6399, 73665, 718, 905, 70377 #### [facility] of [place] [address] Liquid Sugar Melter: Shashi Hutchins MD MAGNESIUMon 09-06-2020 Magnesium [Mass/Vol] 2.4 mg/dL Normal 1.5-2.5 [facility] Comment on above: Performed By: #### 6 22, 6399, 30721, 718, 905, 61820 #### [facility] [address], [address] [place] [address] Liquid Sugar Melter: Shashi Hutchins MD PHOSPHATE ( PHOSPHORUS)on 09-06-2020 Phosphate [Mass/Vol] 4.0 mg/dL Normal 2.1-4.3 [facility] Comment on above: Performed By: #### 6 22, 6399, 20683, 718, 905, 63821 #### [facility] [place] [address] Liquid Sugar Melter: Shashi Hutchins MD URIC ACIDon 09-06-2020 Urate [Mass/Vol] 5.3 mg/dL Normal 2.5-7.0 [facility] Comment on above: Result Comment: Ther apeutic target for gout patients: <6.0 mg/dL Performed By: #### 6 22, 6399, 85570, 718, 905, 51135 #### [facility] [place] [address] Liquid Sugar Melter: Shashi Hutchins MD VITAMIN D,25-OH,TOTAL,IAon 0 09-06-2020 [...] D, (D2,D3), LC/MS/MS is recommended: order code 11792 (patients >2yrs). See Note 1 Note 1 For additional information, please refer to http://education.[employer]/faq/ROM104 (This link is being provided for informational/ educational purposes only.) Performed By: #### 6 46, 9864, 81895, 966, 660, 34853 #### [facility] [address] [facility], [address] [place] [address] Liquid Sugar Melter: Shashi Hutchins MD CT CSPINE WO CONon [...] JOSSY GEE Date: 2020-01-29 19:18 Normal [facility] UA (CLEAN/CATCH) MICROSCOPIC IF INDICATEon 01-17-2020 Bilirubin [Mass/Vol] Negative Normal NEGATIVE [facility] Comment on above: Performed By: #### U ARMICR ####[facility] [address] [place] [address] Octavia BLOOD Negative Normal NEGATIVE [facility] Comment on above: Performed By: #### U ARMICR ####[facility] [id number] [place] [address] [place] Clarity (U) CLEAR Normal [facility] Comment on above: Performed By: #### U ARMICR ####[facility] [id number] [place] [address] [place] Color (U) LT. YELLOW Normal YELLOW [facility] Comment on above: Performed By: #### U ARMICR ####[facility] [id number] [id number] [place] Glucose [Mass/Vol] Negative Normal NEGATIVE The [facility] Comment on above: Performed By: #### U ARMICR ####[facility] [id number] [place] Ketones Ql (U) Negative Normal NEGATIVE The [facility] Comment on above: Performed By: #### U ARMICR ####[facility] [address] [place] Nitrite Ql (U) Negative Normal NEGATIVE The [facility] Comment on above: Performed By: #### U ARMICR ####[facility] [address] [place] [address] [place] pH (Bld) 7.5 Normal 5-9 [facility] Comment on above: Performed By: #### U ARMICR ####[facility] [address] [id number] [place] Protein [Mass/Vol] Negative Normal [facility] Comment on above: Performed By: #### U ARMICR ####[facility] Kn[address] [place] SPEC GRAVITY 1.015 Normal 1.005-<=1.025 [facility] Comment on above: Performed By: #### U SIOBHANICR ####[facility] [address] [place] [address] [place] UR MICRO IND NOT INDICATED Normal [facility] Comment on above: Performed By: #### U ARMICR ####[facility] [address] [place] [address] [place] Urobilinogen Qn (U) 0.2 EU/dl Normal [facility] Comment on above: Performed By: #### U ARMICR ####[facility] [address] [place] [address] [place] WBC (Bld) [#/Vol] Negative Normal NEGATIVE [facility] Comment on above: Performed By: #### U ARMICR ####[facility] [address] [place] [address] [place] XR DEXA BONE DENSITYon 12-26 XR [...] by: CACHORRO MEDRANO Date: 2019-12-27 11:07 Normal [facility] CT LSPINE WO CONon 0 CT LSPINE [...] Florin ANDREWS Date: 2019-11-02 23:13 Normal [facility] CT [facility]SPINE WO CON[facility] [address] [facility] THORACIC SPINE WITHOUT CONTRAST HISTORY: Pain. COMPARISON: None available. TECHNIQUE: Helical CT images were performed of the thoracic spine without intravenous contrast. Dose reduction techniques were achieved by using automated exposure control and/or adjustment of mA and/or kV according to patient size and/or use of iterative reconstruction technique. 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 VERTEBRAL BODIES: Thoracic vertebral bodies [...] Consider follow-up ultrasound. Electronically authenticated by: CACHORRO FLNANERY Date: 2019-11-02 22:56 Normal [facility] CULTURE URINEon 11-03-2019 CULTURE URINE Culture Observations : Heavy growth of mixed genital fran. No potential pathogens seen. Normal [facility] Comment on above: Performed By: #### U RCX #### [facility] [address] [place], [place] [id number] Jemal Octavia ER URINE PROFILEon 0 Bilirubin [Mass/Vol] Negative Normal NEGATIVE [facility] Comment on above: Performed By: #### AUREA SYLVESTERRO #### [facility] [address] [place] [address] Jemal [place] BLOOD Negative Normal NEGATIVE [facility] Comment on above: Performed By: #### AUREA SYLVESTERRO #### [facility] [address] [place] [address] Jemal [place] Clarity (U) CLEAR Normal [facility] Comment on above: Performed By: #### AUREA SYLVESTERRO #### [facility] [address] [place] [address] Jemal [place] Color (U) YELLOW Normal YELLOW [facility] Comment on above: Performed By: #### YONNY SYLVESTER #### [facility] [address] [place] [address] Jemal [place] ERUAHD A micrscopic examination will be performed if indicated. Normal [facility] Comment on above: Performed By: #### YONNY SYLVESTER #### [facility] [address] [place] [address] Jemal [place] Glucose [Mass/Vol] Negative Normal NEGATIVE [facility] Comment on above: Performed By: #### YONNY SYLVESTER #### [facility] [address] [place] [address] Jemal [place] Ketones Ql (U) 15 mg/dl Normal NEGATIVE [facility] Comment on above: Performed By: #### YONNY SYLVESTER #### [facility] [address] [place] [address] Jemal [place] Nitrite Ql (U) Negative Normal NEGATIVE [facility] Comment on above: Performed By: #### YONNY SYLVESTER #### [facility] [address] [place] [address] Jemal [place] pH (Bld) 5.0 Normal 5-9 [facility] Comment on above: Performed By: #### YONNY SYLVESTER #### [facility] [address] [place] [address] Jemal Dudley Protein (U) [Mass/Vol] TRACE Normal [facility] Comment on above: Performed By: #### AUREA SYLVESTERRO #### [facility] [address] [place] [address] Jemalmitch Dudley SPEC GRAVITY >=1.030 Normal 1.005-<=1.025 The [facility] Comment on above: Performed By: #### YONNY SYLVESTER #### [facility] [address] [place] [address] Jemal Dudley UR MICRO IND INDICATED Normal [facility] Comment on above: Performed By: #### YONNY SYLVESTER #### [facility] [address] [place] [address] Jemal Dudley Urobilinogen Qn (U) 0.2 EU/dl Normal [facility] Comment on above: Performed By: #### YONNY SYLVESTER #### [facility] [address] [place] [address] Jemal Dudley WBC (Bld) [#/Vol] SMALL Normal NEGATIVE The [facility] Comment on above: Performed By: #### AUREA SYLVESTERRO #### [facility] [address] [place] [address] Jemalmitch Dudley URINE MICROSCOPIC ONLYon Bacteria LM.HPF (Urine sed) [#/Area] SMALL Normal NONE SEEN The [facility] Comment on above: Performed By: #### AUREA SYLVESTERRO #### [facility] [address] [place] [address] Jemalmitch Dudley CAST NONE SEEN Normal NONE SEEN [facility] Comment on above: Performed By: #### AUREA SYLVESTERRO #### [facility] [address] [place], [place] [id number] Jemal [place] Crystals LM Nom (Urine sed) NONE SEEN Normal NONE SEEN [facility] Comment on above: Performed By: #### E SREEKANTH, UMNIKKIERO #### [facility] [address] [id number] Jemal [place] CULTURE INDICATED Normal [facility] Comment on above: Performed By: #### E SREEKANTH, UMNIKKIERO #### [facility] [address] [place], [place] [address] Jemal [place] Epithelial cells LM.HPF (Urine sed) [#/Area] FEW Normal [facility] Comment on above: Performed By: #### E SREEKANTH, UMNIKKIERO #### [facility] [address] [place], [place] [address] Jemal [place] MUCOUS NONE SEEN Normal NONE SEEN [facility] Comment on above: Performed By: #### Eufemia STACK, UMNIKKIERO #### [facility] [address] [id number] Jemal [place] RBC (U) [#/Vol] NONE SEEN Normal 0-2 [facility] Comment on above: Performed By: #### Eufemia STACK, UMNIKKIERO #### [facility] [address] [id number] Jemal [place] WBC (Bld) [#/Vol] 5-10 Normal NONE SEEN The [facility] Comment on above: Performed By: #### E SREEKANTH, UMNIKKIERO #### [facility] [address] [place], [place] [address] Jemal [place] XR KNEE RT 4V or [...] SUNI FAUST Date: 2019-11-03 00:02 Normal [facility] CBC W MANUAL DIFFon 11-02-19 20 ACANTHOCYTES 2+ Normal [facility] Comment on above: Performed By: #### Lakshmi OLSON #### [facility] [address] [place] [address] Jemal [place] ATYPICAL LYMPH # Normal The [facility] Comment on above: Performed By: #### Lakshmi OLSON #### [facility] [address] [place] [address] Jemal [place] ATYPICAL LYMPH % Normal The [facility] Comment on above: Performed By: #### Lakshmi OLSON #### [facility] [address] [place] [address] Jemal [place] BAND # 0.4 103/ul Critically high 0.0-0.3 The [facility] Comment on above: Performed By: #### Lakshmi OLSON #### [facility] [address] [place] [address] Jemal [place] BAND % 2 % Normal 0-5 [facility] Comment on above: Performed By: #### Lakshmi OLSON #### [facility] [address] [place] [address] Jemal [place] BASOM # 0.00 103/ul Normal 0.00-0.10 [facility] Comment on above: Performed By: #### Lakshmi OLSON #### [facility] [address] [place] [address] Jemal [place] BASOM % 0.0 % Critically low 0.2-2.0 The [facility] Comment on above: Performed By: #### Lakshmi OLSON #### [facility] [address] [place] [address] Jemal [place] BLAST # Normal [facility] Comment on above: Performed By: #### Lakshmi OLSON #### [facility] [address] [place] [address] Jemal [place] BLAST % Normal [facility] Comment on above: Performed By: #### Lakshmi OLSON #### [facility] [address] [place] [address] Jemal [place] CORRECTED WBC Normal 4.0-11.0 The [facility] Comment on above: Performed By: #### Lakshmi OLSON #### [facility] [address] [place] [address] Jemal [place] Eosinophils (Bld) [#/Vol] 0.00 103/ul Normal 0.00-0.70 [facility] Comment on above: Performed By: #### Lakshmi OLSON #### [facility] [address] [place], [place] [address] Jemal [place] Eosinophils/100 WBC (Bld) 0.0 % Critically low 0.9-7.0 [facility] Comment on above: Performed By: #### C WESLEY #### [facility] [address] [place], [place] [address] Jemal [place] Erythrocyte distribution width (RBC) [Ratio] 19.8 % Critically high 11.0-15.0 [facility] Comment on above: Performed By: #### Lakshmi OLSON #### [facility] [address] [place] [address] Jemal [place] Hematocrit (Bld) [Volume fraction] 31.4 % Critically low 36.0-48.0 [facility] Comment on above: Performed By: #### Lakshmi OLSON #### [facility] [address] [place], [place] [address] Jemal Oct[place] Hemoglobin (Bld) [Mass/Vol] 10.1 g/dl Critically low 12.0-16.0 [facility] Comment on above: Performed By: #### Lakshmi OLSON #### [facility] [address] [place], [place] [address] Jemal [place] HYPOCHROMASIA SLIGHT Normal The [facility] Comment on above: Performed By: #### Lakshmi OLSON #### [facility] [address] [place] [address] Jemal [place] LYMPHM # 2.42 103/ul Normal 1.20-3.80 [facility] Comment on above: Performed By: #### Lakshmi OLSON #### [facility] [address] [place], [place] [address] Jemal [place] LYMPHM% 12.0 % Critically low 20.5-60.0 The [facility] Comment on above: Performed By: #### Lakshmi OLSON #### [facility] [address] [place] [address] Jemalmitch Dudley MCH (RBC) [Entitic mass] 23.5 pg Critically low 26.7-34.0 [facility] Comment on above: Performed By: #### C WESLEY #### [facility] [address] [place] [address] Jemalmitch Dudley MCHC (RBC) [Mass/Vol] 32.2 g/dl Normal 29.9-35.2 [facility] Comment on above: Performed By: #### C WESLEY #### [facility] [address] [place] [address] Jemal [place] MCV (RBC) [Entitic vol] 73.0 fL Critically low 81.0-99.0 [facility] Comment on above: Performed By: #### Lakshmi OLSON #### [facility] [address] [place] [address] Jemal [place] METAMYELOCYTE # Normal [facility] Comment on above: Performed By: #### Lakshmi OLSON #### [facility] [address] [place] [address] Jemal [place] METAMYELOCYTE % Normal [facility] Comment on above: Performed By: #### Lakshmi OLSON #### [facility] [address] [place] [address] Jemal [place] MONOM# 0.40 103/ul Normal 0.30-0.80 [facility] Comment on above: Performed By: #### Lakshmi OLSON #### [facility] [address] [place] [address] Jemal [place] MONOM% 2.0 % Normal 1.7-12.0 [facility] Comment on above: Performed By: #### Lakshmi OLSON #### [facility] [address] [place] [address] Jemal [place] MYELOCYTE # Normal [facility] Comment on above: Performed By: #### Lakshmi OLSON #### [facility] [address] [place] [address] Jemal [place] MYELOCYTE % Normal [facility] Comment on above: Performed By: #### Lakshmi OLSON #### [facility] [address] [id number] Jemal [place] NRBC Normal [facility] Comment on above: Performed By: #### Lakshmi OLSON #### [facility] [address] [id number] Jemal [place] OVALOCYTES 1+ Normal [facility] Comment on above: Performed By: #### Lakshmi OLSON #### [facility] [address] [id number] Jemal [place] Platelet mean volume (Bld) [Entitic vol] 10.8 fL Normal 9.5-13.5 [facility] Comment on above: Performed By: #### Lakshmi OLSON #### [facility] [address] [id number] Jemal Oct[place] Platelets (Bld) [#/Vol] 321 103/ul Normal 150-450 [facility] Comment on above: Performed By: #### Lakshmi OLSON #### [facility] [address] [id number] Jemal Oct[place] RBC (Bld) [#/Vol] 4.30 106/ul Normal 4.20-5.40 [facility] Comment on above: Performed By: #### Lakshmi OLSON #### [facility] [address] [id number] Jemalmitch Chavezen SEG # 16.97 103/ul Critically high 1.40-6.50 [facility] Comment on above: Performed By: #### Lakshmi OLSON #### [facility] [address] [id number] Jemal Octavia Segmented neutrophils/100 WBC (Bld) 84.0 % Critically high 43.0-75.0 [facility] Comment on above: Performed By: #### Lakshmi OLSON #### [facility] [address] [id number] Jemal Oct[place] WBC (Bld) [#/Vol] 20.2 103/ul Critically high 4.0-11.0 [facility] Comment on above: Performed By: ###Juan OLSON #### [facility] [address] [place], [place] [address] Jemalmitch Chavezen PROF 14(COMP METB)on 020 Albumin [Mass/Vol] 3.3 g/dL Critically low 3.5-5.0 Th e [facility] Comment on above: Performed By: #### C MP #### [facility] [address] [place], [place] [address] Jemal Octavia Albumin/Globulin [Mass ratio] 1.0 {ratio} Normal [facility] Comment on above: Performed By: #### C MP #### [facility] [address] [place], [place] [address] Jemal Octavia ALP [Catalytic activity/Vol] 105 U/L Normal 38-126 [facility] Comment on above: Performed By: #### C MP #### [facility] [address] [place] [address] Jemal Octavia ALT [Catalytic activity/Vol] 33 U/L Normal 9-52 [facility] Comment on above: Performed By: #### C MP #### [facility] [address] [place], [place] [address] Jemal Octavia Anion gap [Moles/Vol] 11.5 mmol/L Normal [facility] Comment on above: Performed By: #### C MP #### [facility] [address] [place], [place] [address] Jemal Octavia AST [Catalytic activity/Vol] 35 U/L Normal 14-36 [facility] Comment on above: Performed By: #### C MP #### [facility] [address] [place], [place] [address] Jemal Octavia Bilirubin Ql (U) 0.4 mg/dL Normal 0.2-1.3 The [facility] Comment on above: Performed By: #### C MP #### [facility] [address] [place], [place] [address] Jemal Octavia Calcium [Mass/Vol] 8.5 mg/dL Normal 8.4-10.2 [facility] Comment on above: Performed By: #### C MP #### [facility] [address] [place], [place] [address] Jemal Octavia Chloride [Moles/Vol] 102 mmol/L Normal 98-107 [facility] Comment on above: Performed By: #### C MP #### [facility] [address] [phone] Jemal Octavia CO2 [Moles/Vol] 26.1 mmol/L Normal 22.0-30.0 [facility] Comment on above: Performed By: #### C MP #### [facility] [address] [address] Jemal Octavia Creatinine [Mass/Vol] 1.06 mg/dL Critically high 0.52-1.04 [facility] Comment on above: Performed By: #### C MP #### [facility] [address] [address] Jemal Octavia EGFR-AF THAI 60 mL/min/1.73m2 Normal >=60 [facility] Comment on above: Performed By: #### C MP #### [facility] [address] [address] Jemal Octavia EGFR-NON AF THAI 50 mL/min/1.73m2 Critically low >=60 [facility] Comment on above: Performed By: #### C MP #### [facility] [address] [phone] Jemal Octavia Globulin (S) [Mass/Vol] 3.4 g/dL Normal [facility] Comment on above: Performed By: #### C MP #### [facility] [address] [address] Jemal Octavia Glucose [Mass/Vol] 165 mg/dL Critically high 74-106 T [facility] Comment on above: Performed By: #### C MP #### [facility] [address] [phone] Jemal Octavia Potassium [Moles/Vol] 3.6 mmol/L Normal 3.4-5.0 [facility] Comment on above: Performed By: #### C MP #### [facility] [address] [address] Jemal Octavia Protein [Mass/Vol] 6.7 g/dL Normal 6.1-8.2 [facility] Comment on above: Performed By: #### C MP #### [facility] [address] [place] [address] Jemal Octavia Sodium [Moles/Vol] 136 mmol/L Critically low 137-145 Th e [facility] Comment on above: Performed By: #### C MP #### [facility] [address] [place], [place] [address] Jemal Octavia Urea nitrogen [Mass/Vol] 15.0 mg/dL Normal 7.0-17.0 [facility] Comment on above: Performed By: #### C MP #### [facility] [address] [place] [address] Jemal Octavia Urea nitrogen/Creatinin e [Mass ratio] 14.2 mg/mg Normal [facility] Comment on above: Performed By: #### C MP #### [facility] [address] [place] [address] Jemal Octavia PROTIMEon 11-02-2019 INR Coag (PPP) [Relative time] 1.10 {INR} Normal [facility] Comment on above: Performed By: #### P T, PTT #### [facility] [address] [place], [place] [address] Jemal Octavia PT Coag (PPP) [Time] SEE BELOW Normal [facility] Comment on above: Result Comment: ANNETTE RED INR: 2.0 - 3.0 CONDITIONS NOT LISTED BELOW 2.5 - 3.5 FOR PROSTHETIC HEART VALVE REPLACEMENT 2.5 - 3.5 RECURRENT THROMBOSIS Performed By: #### P T, PTT #### [facility] [address] [place], [place] [id number] Jemal Octavia PT Coag (PPP) [Time] PLEASE NOTE: NORMAL RANGE CHANGE 02-09-2014 DUE TO REAGENT LOT CHANGE Normal [facility] Comment on above: Performed By: #### P T, PTT #### [facility] [address] [place], [place] [address] Jemal Octavia PT Coag (PPP) [Time] 11.4 s Normal 9.0-11.6 [facility] Comment on above: Performed By: #### P T, PTT #### [facility] [address], [place] [address] Jemal Dudley PTTon 11-02-2019 aPTT Coag (Bld) [Time] 31.7 s Normal 22.3-36.2 [facility] Comment on above: Performed By: #### P T, PTT #### [facility] [address], [place] [address] Jemal Dudley aPTT Coag (Bld) [Time] PLEASE NOTE: NORMAL RANGE CHANGE 04-18-2015 DUE TO REAGENT LOT CHANGE Normal [facility] Comment on above: Performed By: #### P T, PTT #### [facility] [address], [place] [address] Jemal Dudley Vital Signs Date Time Vital Sign Value Performing Clinician Facility 03-01-2024 14:24-0400 Body height 170.2 cm [employer] Work Phone: [facility] [place] 03-01-2024 14:24-0400 Body mass index (BMI) [Ratio] 20.88 kg/m2 [employer] DO [facility] 03-01-2024 14:24-0400 Body temperature 97.5 [degF] TimothyTiberium DO Work Phone: [facility] 03-01-2024 14:24-0400 Body weight 60.46 kg [employer] DO Work Phone: [facility] 03-01-2024 14:24-0400 Diastolic blood pressure 58 mm[Hg] [employer] DO Work Phone: [facility] 03-01-2024 14:24-0400 Heart rate 63 /min [employer] DO Work Phone: [facility] 03-01-2024 14:24-0400 SaO2% (BldA) [Mass fraction] 97 % [employer] DO Work Phone: [facility] 03-01-2024 14:24-0400 Systolic blood pressure 120 mm[Hg] Timothy Washington DO Work Phone: [facility] 07-28-2023 14:11-0500 Body height 172.7 cm Pfo 6 [facility] 07-28-2023 14:11-0500 Body mass index (BMI) [Ratio] 18.4 kg/m2 Pfo 6 [facility] 07-28-2023 14:11-0500 Body temperature 97.59 [degF] Pfo 6 [facility] 07-28-2023 14:11-0500 Body weight 54.88 kg Pfo 6 [facility] 07-28-2023 14:11-0500 Diastolic blood pressure 82 mm[Hg] Pfo 6 [facility] 07-28-2023 14:11-0500 Heart rate 78 /min Pfo 6 [facility] 07-28-2023 14:11-0500 Respiratory rate 15 /min Pfo 6 [facility] 07-28-2023 14:11-0500 SaO2% (BldA) [Mass fraction] 100 % Pfo 6 [facility] 07-28-2023 14:11-0500 Systolic blood pressure 141 mm[Hg] Pfo 6 [facility] 02-20-2020 10:33-0400 BMI (Body Mass Index) 17.2 kg/m2 [facility] 02-20-2020 10:33-0400 Body weight 51.25 kg [facility] 02-20-2020 10:33-0400 Height 172.72 cm [facility] 02-20-2020 10:20-0400 Body Temperature 97.7 [degF] [facility] 02-20-2020 10:20-0400 BP Diastolic 79 mm[Hg] [facility] 02-20-2020 10:20-0400 BP Systolic 121 mm[Hg] [facility] 02-20-2020 10:20-0400 Pulse (Heart Rate) 92 /min [facility] [place] [facility] 02-20-2020 10:20-0400 Respiratory Rate 18 /min [facility] Encounters Encounter Date Encounter Type Care Provider Facility Start: 03-01-2024 End: 03-01-2024 Office outpatient visit 15 minutes Timothy Washington DO Work Phone: [facility] Comment on above: Urinary incontinence , unspecified type (Primary Dx); Hypertensive kidney disease with stage 3a chronic kidney disease ([facility]) Start: 03-01-2024 End: 03-01-2024 ambulatory [facility] Start: 12-10-2023 End: 12-10-2023 ambulatory [facility] Start: 12-10-2023 End: 12-10-2023 ambulatory [facility] Start: 07-28-2023 End: 07-28-[address] [facility] Start: 07-28-2023 End: 07-28-2023 ambulatory Pfo Infusion Chair 6 Chapis Guerrier [facility] Comment on above: [...] Medicine Start: 02-20-2020 End: 02-20-2020 Discharged Recurring Timotyh [facility] Start: 01-29-2020 End: 01-29-2020 Patient encounter procedure TIMOTHY WASHINGTON Facility:[facility] Start: 01-17-2020 End: 01-17-2020 Patient encounter procedure TIMOTHY WASHINGTON Facility:[facility] Start: 12-27-2019 End: 12-28-2019 Patient encounter procedure DOCTOR MISC Facility:[facility] Start: 11-02-2019 End: 11-03-2019 Patient encounter procedure TIMOTHY WASHINGTON Facility:[facility]1 Procedures Date Procedure Procedure Detail Performing Clinician Start: 03-01-2024 Adult depression screening assessment Timothy Ctaevelyn DO Work Phone: Start: 05-04-2023 Adult depression screening assessment Not Ref Prov Plan of Treatment Date Care Activity Detail Author Start: 03-01-2025 Adult BMI Screening Adult BMI Screen ing [facility] Start: 03-01-2025 Depression Screening Depression Scre ening [facility] Start: 03-01-2025 Fall Risk Screening Fall Risk Screen ing [facility] Start: 03-01-2025 Tobacco Screening Tobacco Screening [facility] Start: 09-08-2024 End: 09-08-2024 Patient encounter procedure 09/08/2024 1:00 PM EDT Office Visit [facility] [address] [place] [address] Timothy Washington DO [address], [place] [address] [facility] Start: 07-31-2024 DTaP,Tdap and Td Vaccines (2 - Td or Tdap) DTaP,Tdap and Td Vaccines (2 - Td or Tdap) [facility] Start: 05-09-2024 End: 05-09-2024 Patient encounter procedure 05/09/2024 9:50 AM EST Office Visit [facility] [address] [place] [address] Timothy Washington DO [address] [place] [address] [facility] Start: 05-04-2024 Adult BMI Screening Adult BMI Screen ing [facility] Start: 05-04-2024 Depression Screening Depression Scre ening [facility] Start: 05-04-2024 Fall Risk Screening Fall Risk Screen ing [facility] Start: 05-04-2024 Tobacco Screening Tobacco Screening [facility] Start: 01-24-2024 COVID-19 Vaccine ( season) COVID-19 Vaccine () [facility] Start: 01-24-2024 Influenza vaccination Influenza Vacc ine [facility] Start: 07-28-2023 End: 07-28-2023 ambulatory 07/28/2023 2:30 PM EST Infusion Chapis L [facility] [address] [place] [phone] Chapis Jacob [facility] Start: 01-23-2023 COVID-19 Vaccine ( season) COVID-19 Vaccine () [facility] Start: 01-23-2023 Influenza vaccination Influenza Vacc ine [facility] Start: 02-10-1953 Adult BMI Follow Up Plan Adult BMI Follow Up Plan [facility] Start: 1935 Medicare Annual Well ness Visit Medicare Annual Wellness Visit [facility] Immunizations Immunization Date Immunization Notes Care Provider Fa cility 06-28-2020 COVID-19, mRNA, LNP- S, PF, 30mcg/0.3mL Dose Not Ref Prov [facility] 06-27-2020 COVID-19, mRNA, LNP- S, PF, 30mcg/0.3mL Dose Not Ref Prov [facility] 02-16-2020 influenza, injectabl e, quadrivalent, contains preservative Not Ref Prov [facility] 02-16-2020 influenza virus vacc ine, unspecified formulation Not Ref Prov [facility] 02-15-2019 influenza, high dose seasonal, preservative-free Not Ref Prov [facility] 12-13-2018 zoster vaccine recombinant Not Ref P rov [facility] 06-11-2018 zoster vaccine recombinant Not Ref P rov [facility] 06-10-2018 zoster vaccine recombinant Not Ref P [facility] 02-15-2018 influenza virus vacc ine, unspecified formulation Not Ref [facility] 02-15-2018 Seasonal trivalent influenza vaccine, adjuvanted, preservative free Not Ref [facility] 02-23-2017 influenza, seasonal, injectable Not Ref [facility] 02-25-2016 Seasonal trivalent influenza vaccine, adjuvanted, preservative free Not Ref [facility] 02-23-2016 influenza, high dose seasonal, preservative-free Not Ref [facility] 03-07-2015 influenza, injectabl e, quadrivalent, preservative free Not Ref [facility] 02-26-2015 influenza, injectabl e, quadrivalent, contains preservative Not Ref [facility] 02-22-2015 influenza virus vacc ine, unspecified formulation Not Ref [facility] 07-31-2014 tetanus toxoid, redu ivory diphtheria toxoid, and acellular pertussis vaccine, adsorbed Not Ref [facility] 04-28-2014 influenza, seasonal, injectable Not Ref [facility] 03-13-2014 influenza, high dose seasonal, preservative-free Not Ref [facility] 03-08-2014 zoster vaccine, live Not Ref [facility] 09-01-2013 pneumococcal conjuga te vaccine, 13 valent Not Ref [facility] 09-01-2013 pneumococcal polysaccharide vaccine, 23 valent Not Ref [facility] 03-09-2013 influenza, seasonal, injectable Not Ref [facility] 09-24-2011 zoster vaccine, live Not Ref [facility] 09-18-2011 zoster vaccine, live Not Ref [facility] 05-15-2009 novel influenza-H1N1 -09, preservative-free, injectable Not Ref [facility] 03-17-2001 pneumococcal polysaccharide vaccine, 23 valent Not Ref [facility] Payers Date Payer Category Payer Private Health Insurance [id number] 2001 Medicare MEDICARE MEDICAR E RAILROAD [id number] 2001-Present [phone] [address] [address] [place] [address] [id number] 1959 Medicare [id number] 1959 Private Health Insurance [id number] 1958 Self-pay [id number] 1935 Unknown [id number] 1936 Unknown [id number] 1936 Unknown [id number] 1936 Unknown [id number] 1936 Unknown [id number] 1936 Unknown [id number] 1936 Unknown [id number] Medicare Self Pay [id number] Unknown [id number] Social History Date Type Detail Facility Start: 04-01-2018 End: 02-20-2020 Tobacco smoking status NHIS Ex-smoker (finding) [facility] Start: 1935 Sex Assigned At Female [facility] History of tobacco use Current smoker [facility] Start: 04-01-2018 Tobacco use and exposure Smokeless tobacco non-user [facility] Start: 07-14-2023 End: 03-01-2024 Alcohol intake Current drinker of alcohol (finding) [facility] Start: 10-13-2022 End: 03-01-2024 History of Social function [facility] Start: 10-13-2022 End: 03-01-2024 Social connection and isolation panel [facility] Do you belong to any clubs or organizations such as religion groups, unions, fraternal or athletic groups, or school groups? No [facility] Are you now , , , , never or living with a partner? [facility] How often to you hav e a drink containing alcohol? Never [facility] How many standard dr inks containing alcohol do you have on a typical day? Patient does not drink [facility] Do you feel stress - tense, restless, nervous, or anxious, or unable to sleep at night because your mind is troubled all the time - these days [OSQ] Not at all [facility] Start: 11-03-2019 Alcohol Comment occassionally [facility] Start: 1935 Sex Assigned At Not on file [facility] Medical Equipment Procedure Code Equipment Code Equipment Origin al Text Equipment Identifier Dates Cmnt [employer] [facility] Hvr 30% Baso4 Pmma - [id number] - [id number] Start: 11-07-2019 Goals Date Patient Goal [...] presents today with her daughter for a [id number] visit to document her need for adult [...] Exam Vitals reviewed. Exam conducted with a meal grinder tender present (Ariella). Constitutional: General: She is not [...] disease with stage 3a chronic kidney disease ([facility]) Blood pressure at goal. We will recheck labs in 6 months. [facility] History of Present illness Narrative Patient here for reclast infusion. Patient denies any issues or complaints today. She tolerated last years dose well. She denies dental procedures, labs WNL. IV initiated per policy and tolerated well. Reclast administered without complications. NS to flush line. IV D/C'd. Patient accompanied by daughter in stable condition. documented in this encounter [facility] 06-15-2020 Note Patient Outreach ([place] OCC3) STEFANICHHAYA Campbell ([id number]) 1935 F Date Time Provider Department 06/15/20 NEPTALI VANN During your visit today, we recorded the following information about you: Allergies As of Date: 06/15/2020 Noted Allergy Reaction CLINDAMYCIN 06/08/2019 2 - Rash LATEX 08/04/2012 2 - Rash SULFA (SULFONAMIDE ANTIBIOTICS) 08/04/2012 5 - Intolerance Date Reviewed: 06/08/2019 Reviewed by: La Russo - Fully Assessed Order(s):SARS-COVID VACCINE 1ST DOSE APPT [[id number]] Order #: [id number] FUTURE Prescriptions as of 06/15/2020 Sig: OCUVITE [...] Encounter Status:Closed by ELOISE SLATER on 06/18/20 [facility] Evaluation note Diagnosis Age-related osteoporosis without current pathological fracture- Primary [facility] this [facility] Diagnosis Moderate persistent asthma, unspecified whether complicated- Primary documented in this encounter [facility]* Diagnosis Moderate persistent asthma, unspecified whether complicated- Primary documented in this encounter [facility]* Diagnosis Age-related osteoporosis without current pathological fracture- Primary documented in this encounter [facility]* Diagnosis Urinary incontinence, unspecified type- Primary Hypertensive kidney disease with stage 3a chronic kidney disease ([facility]) documented in this encounter [facility] on filedocumented in this encounter [facility] filedocumented in this encounter [facility] on filedocumented in this encounter [facility]ructionsNot on filedocumented in this encounter [facility] Advance Directives Advance Directive Response Recorded Date/ Time Advance Directives No January 9:05am Documents on File Type Date Recorded Patient Mill Set Up Expl amy Living Will 07/08/2023 3:40 PM LIVING BETTY L 07/08/2023 Living Will 11/16/2019 1:04 PM Durable Power of Addictions Therapist 11/16/2019 1:04 PM Latest Code Status on [...] DATE CREATED AUTHOR AUTHOR'S ORGANIZ ATION 06/01/2021 [facility] DATE CREATED AUTHOR AUTHOR'S ORGANIZ ATION 07/29/2023 [facility] DATE CREATED AUTHOR AUTHOR'S ORGANIZ ATION 12/14/2023 [facility] DATE CREATED AUTHOR AUTHOR'S ORGANIZ ATION 03/03/2024 [facility] Care Teams (unrecognized sec tion and content) People Greeter Relationship Specialty Start Date End Date Timothy Washington DO [address] [place] [address] PCP - General Family Medicine 02/12/17 People Greeter Relationship Specialty Start Date End Date Timothy Washington DO [address] [place] [address] PCP - General Family Medicine 02/12/17 People Greeter Relationship Specialty Start Date End Date Timothy Washington DO [address] [place] [address] PCP - General Family Medicine 02/12/17 People Greeter Relationship Specialty Start Date End Date StephaniagiovanniTimothy henderson [address], [place] [address] PCP - General Family Medicine 02/12/17 People Greeter Relationship Specialty Start Date End Date Timothy Washington DO [address], [place] [address] PCP - General Family Medicine 02/12/17 People Greeter Relationship Specialty Start Date End Date StephaniagiovanniTimothy henderson DO [address], [place] [address] PCP - General Family Medicine 02/12/17 Reason for Visit (unrecogniz ed section and content) Reason Comments Outpatient Infusion reclast Specialty Diagnoses / Procedures Referred By Contac t Referred To Contact Diagnoses Age-related osteoporosis without current pathological fracture Procedures MO ZOLEDRONIC ACID 1MG Timothy Washington DO [address] [place] [address] Pfo Med Onc [facility] [place] [address] Referral ID Status Reason Start Date Expiration Date V isits Requested Visits Authorized [id number] Authorized 07/18/2023 07/17/2024 1 1 Reason Comments [...] BE BASED ON THE PRIMARY CLINICAL RECORDS. [facility]. provides no warranty or guarantee of the accuracy or completeness of information in this document.
--- NOTE | 2024-06-18 14:06 | P.HP_ITS ---
HPI H&P: HPI History of Present Illness Chief complaint: FALL, UTI, LEUKOCYTOSIS, PUBIC RAMI FRACTURES Narrative: 89y o female, who currently lives in assisted living facility was sent by EMS from after being found on the floor from an unwitnessed fall. Patient does not remember falling down but was experiencing severe right hip and foot pain. Patient has dementia and intermittently confused at baseline. According to the patient, patient has lost 10 lbs in one month and she does not eat/drink well. She uses Walker to ambulate at baseline but right now, unable to do anything due to pain from hip and foot pain. Work up in ED c/w UTI, pubic rami fracture and sig leukocytosis. Opioid HPI Opioid Management Most Recent Pain and Opioid Data: Last Pain Scale 8 06/18/24 09:12 06/18/24 Last ED Pain Assessment 06/18/24 11:51 Last MAR Pain Assessment 06/18/24 09:12 Review of Systems ROS Status of ROS 10 or more systems reviewed and unremark able except as noted in history and below PFSH [facility] Medical History (Updated 06/18/24 @ 14:11 by Shaikh Ashley MD) HTN (hypertension) ?I10 - Essential (primary) hypertension (ICD-10) Dementia ?F03.90 - Unspecified dementia, unspecified severity, without behavioral disturbance, psychotic disturbance, mood disturbance, and anxiety (ICD-10) 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 - Personal history of non-Hodgkin lymphomas (ICD-10) History of anxiety ?Z86.59 - Personal history of other mental and behavioral disorders (ICD-10) Hx of primary hypertension ?Z86.79 - Personal history of other diseases of the circulatory system (ICD- 10) Hx of chronic kidney disease ?Z87.448 - Personal history of other diseases of urinary system (ICD-10) History of depression ?Z86.59 - Personal history of other mental and behavioral disorders (ICD-10) History of malignant neoplasm of uterus ?Z85.42 - Personal history of malignant neoplasm of other parts of uterus (ICD-10) History of asthma ?Z87.09 - Personal history of other diseases of the respiratory system (ICD- 10) Hx of osteoarthritis ?Z87.39 - Personal history of other diseases of the musculoskeletal system and connective tissue (ICD-10) Hx of osteoporosis ?Z87.39 - Personal history of other diseases of the musculoskeletal system and connective tissue (ICD-10) History of dementia ?Z86.59 - Personal history of other mental and behavioral disorders (ICD-10) Surgical History (Updated 06/18/24 @ 14:09 by Halima Stover) H/O: hysterectomy ?Z90.710 - Acquired absence of both cervix and uterus (ICD-10) S/P lumbar fusion ?Z98.1 - Arthrodesis status (ICD-10) Cervical vertebral fusion ?M43.22 - Fusion of spine, cervical region (ICD-10) Family History (Updated 06/18/24 @ 14:10 by Halima Stover) Mother Family history of cancer Father Family history of stroke Family history of hypertension Social History Within the past year, how often did you have a drink containing alcohol: monthly or less Smoking status: Former smoker Non-prescribed substance use: denies use Previous occupational history: retired Highest level of school completed/degree received: some college, no degree Are you now , , , , never or living with a partner: Little interest or pleasure in doing things: several days Feeling down, depressed, or hopeless: several days Feel stressed/tense/nervous/anxious/difficulty sleeping: to some extent Life stressors: recent of family or friend Life stressor details: been 15 years since , but still sad Meds Home Medications and Allergies Home Medications ?Medication ?Instructions ?Recorded ?Confirmed ?Type amlodipine 5 mg tablet 5 mg PO DAILY 06/18/24 06/18/24 History donepezil 10 mg tablet 10 mg PO BEDTIME 06/18/24 06/18/24 History lovastatin 10 mg tablet 5 mg PO BEDTIME 06/18/24 06/18/24 History mirtazapine 15 mg tablet 15 mg PO BEDTIME 06/18/24 06/18/24 History sertraline 25 mg tablet 12.5 mg PO DAILY 06/18/24 06/18/24 History Allergies Allergy/AdvReac Type Severity Reaction Status Date / Time clindamycin Allergy Unknown Unknown Verified 06/18/24 08:31 latex Allergy Unknown Unknown Verified 06/18/24 08:31 Sulfa (Sulfonamide Allergy Unknown Unknown Verified 06/18/24 08:31 Antibiotics) Exam Constitutional Vital Signs, click to edit/add: Last Vital Signs Temp 98.3 F 06/18/24 12:13 Pulse 90 06/18/24 13:35 Resp 20 06/18/24 13:35 BP 133/75 06/18/24 13:35 Pulse Ox 91 L 06/18/24 13:35 O2 Del Method Room Air 06/18/24 11:52 Documenting provider has reviewed patient's vital signs: yes Common normals: no apparent distress and oriented x3 General appearance: cooperative HENMT Common normals: normocephalic and head/scalp atraumatic Head and scalp: normocephalic and atraumatic Eye Common normals: conjunctivae normal and no scleral icterus Conjunctiva: conjunctiva(e) normal Respiratory Common normals: normal respiratory effort and clear to auscultation bilaterally Effort & inspection: able to speak in complete sentences Auscultation: clear to auscultation bilaterally Cardio Common normals: regular rate, S1 normal heart sound and S2 normal heart sound Rate: regular rate Heart sounds: S1 normal and S2 normal GI Common normals: Normal to inspection, nondistended, normoactive bowel sounds present, soft to palpation, non-tender and no hepatosplenomegaly Palpation: soft and no hepatosplenomegaly Extremity Other: Right foot - bruising noted. Neuro Common normals: oriented x3, moves all extremities and no focal motor deficits Psych Common normals: mental status grossly normal, denies hallucinations, denies homicidal ideation and denies suicidal ideation Results Labs Labs: Short CBC 06/18/24 Range/Units 09:05 WBC 22.7 H (4.0-11.0) 10^3/uL Hgb 9.6 L (12.0-16.0) g/dL Hct 31.4 L (36.0-48.0) % Plt Count 392 (150-450) 10^3/uL BMP 06/18/24 09:05 Sodium 146 H Potassium 3.3 L Chloride 109 H Carbon Dioxide 28.1 BUN 22.0 H Creatinine 1.28 H Glucose 165 H Calcium 8.5 Urine 06/18/24 Range/Units 12:09 Urine Color Yellow (YELLOW) Urine Clarity Cloudy A (CLEAR) Urine pH 6.0 (5.0-9.0) Ur Specific Kimberly >=1.030 A (1.005-1.025) Urine Protein 30 A (NEG/TRACE) mg/dL Urine Glucose (UA) Negative (NEGATIVE) mg/dL Assessment and Plan Assessment and Plan (1) Closed fracture of right inferior pubic ramus: Assessment and Plan: Conservative management. Pain control. PT/OT eval. Qualifiers: Encounter type: subsequent encounter Fracture healing: with routine healing Qualified Code(s): S32.591D - Other specified fracture of right pubis, subsequent encounter for fracture with routine healing (2) Closed fracture of right superior pubic ramus: Assessment and Plan: Conservative management. Pain control. PT/OT eval. Qualifiers: Encounter type: subsequent encounter Fracture healing: with routine healing Qualified Code(s): S32.511D - Fracture of superior rim of right pubis, subsequent encounter for fracture with routine healing (3) Acute UTI: Assessment and Plan: Started on Rocephin. F/u urine cx. (4) Leukocytosis: Assessment and Plan: Likely due to dehydration,UTI. On IVF, Rocephin. F/u urine cx. Qualifiers: Leukocytosis type: leukemoid reaction Qualified Code(s): D72.823 - Leukemoid reaction (5) HTN (hypertension): Assessment and Plan: Stable BP c/w Amlodipine. Qualifiers: Hypertension type: primary hypertension Qualified Code(s): I10 - Essential (primary) hypertension (6) Dementia: Assessment and Plan: Confused at baseline. AOX 3 today. C/w aricept. 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 Patient has decreased PO intake, usually less than 50% of her daily caloric requirement and has lost 10 lbs in past one month Added ensure,prostat. Urinary Catheter Management Urinary Catheter Management Straight: Cath placed during this visit: yes Urethral indwelling: No Insertion date: 06/18/24 Insertion time: 12:12
[2024-06-18] MEDS: LACTATED RINGER'S SOLUTION 1,000 ML 125 ML IV ×2 (15:00→22:43)
[2024-06-18] MEDS: ENOXAPARIN SODIUM 30 MG/0.3 ML SYRINGE SUBQ (16:38)
[2024-06-18] MEDS: MIRTAZAPINE 15 MG TABLET PO (21:45)
[2024-06-18] MEDS: ATORVASTATIN CALCIUM 10 MG TABLET 5 MG PO (21:45)
[2024-06-18] MEDS: CEFTRIAXONE 1,000 MG in 0.9 % SODIUM CHLORIDE 50 ML 100 MG IV (21:45)
[2024-06-18] MEDS: DONEPEZIL HCL 10 MG TABLET PO (21:46)
[2024-06-19 05:08] VITALS: O2SAT 93
[2024-06-19 05:46] VITALS: BP 131/79; PULSE 112; TEMP 36.6; O2SAT 92
[2024-06-19 06:18] LABS: Basophils Percent Auto 0.2 % (0.2-2.0); Eosinophils Percent Auto 0.1 % (0.9-7.0); Hematocrit 27.3 % (36.0-48.0); Hemoglobin 8.3 g/dL (12.0-16.0); Immature Granulocytes Abs Auto 0.17 10^3/uL (0.00-0.03); Immature Granulocytes Pct Auto 0.9 % (0.0-0.5); Lymphocytes Absolute Auto 1.7 10^3/uL (1.2-3.8); Lymphocytes Percent Auto 9.1 % (20.5-60.0); Mean Corpuscular HGB Conc 30.4 g/dL (29.9-35.2); Mean Corpuscular Hemoglobin 21.8 pg (26.7-34.0); Mean Corpuscular Volume 71.7 fL (81.0-99.0); Mean Platelet Volume 10.1 fL (9.5-13.5); Monocytes Absolute Auto 2.7 10^3/uL (0.3-0.8); Monocytes Percent Auto 14.2 % (1.7-12.0); Neutrophils Absolute Auto 14.1 10^3/uL (1.4-6.5); Neutrophils Percent Auto 75.5 % (43.0-75.0); Platelet Count 314 10^3/uL (150-450); Red Blood Count 3.81 10^6/uL (4.20-5.40); White Blood Count 18.6 10^3/uL (4.0-11.0)
[2024-06-19] MEDS: LACTATED RINGER'S SOLUTION 1,000 ML 125 ML IV ×2 (06:21→15:07)
[2024-06-19 06:38] LABS: Alanine Aminotransferase 21 U/L (14-59); Albumin Globulin Ratio 0.6; Alkaline Phosphatase 131 U/L (46-116); Anion Gap 9.3; Aspartate Amino Transferase 26 U/L (15-37); BUN Creatinine Ratio 16.8; Bilirubin Total 0.4 mg/dL (0.2-1.0); Calcium 7.5 mg/dL (8.5-10.1); Chloride 110 mmol/L (98-107); Estimated GFR (African America 55 (>=60 mL/min/1.73m^2); Estimated GFR (Non-African Ame 45 (>=60 mL/min/1.73m^2); Globulin 3.2 g/dL; Glucose 136 mg/dL (74-106); Potassium 3.3 mmol/L (3.5-5.1); Sodium 144 mmol/L (136-145); Total Protein 5.2 g/dL (6.4-8.2)
[2024-06-19] MEDS: AMLODIPINE BESYLATE 5 MG TABLET PO (09:15)
[2024-06-19] MEDS: SERTRALINE HCL 50 MG TABLET 12.5 MG PO (09:15)
[2024-06-19] MEDS: ENSURE ORIGINAL 237 ML BOTTLE PO (09:15)
[2024-06-19] MEDS: POTASSIUM BICARBONATE/CIT 25 MEQ TABLET EFF 50 MEQ PO (09:15)
[2024-06-19] MEDS: ACETAMINOPHEN 325 MG TABLET 650 MG PO ×2 (09:26→14:16)
[2024-06-19 11:05] VITALS: O2SAT 94
--- NOTE | 2024-06-19 12:41 | P.IMPN_ITS ---
Progress Note: A&P Assessment and Plan (1) Closed fracture of right inferior pubic ramus: Assessment and Plan: Pain control. PT/OT eval Qualifiers: Encounter type: subsequent encounter Fracture healing: with routine healing Qualified Code(s): S32.591D - Other specified fracture of right pubis, subsequent encounter for fracture with routine healing (2) Closed fracture of right superior pubic ramus: Assessment and Plan: Pain control. PT/OT eval Qualifiers: Encounter type: subsequent encounter Fracture healing: with routine healing Qualified Code(s): S32.511D - Fracture of superior rim of right pubis, subsequent encounter for fracture with routine healing (3) Acute UTI: Assessment and Plan: On rocephin. F.u urine cx. (4) Leukocytosis: Assessment and Plan: Improved. C/w IVF and abx. Qualifiers: Leukocytosis type: leukemoid reaction Qualified Code(s): D72.823 - Leukemoid reaction (5) HTN (hypertension): Assessment and Plan: Stable BP. c/w home medications Qualifiers: Hypertension type: primary hypertension Qualified Code(s): I10 - Essential (primary) hypertension (6) Dementia: Assessment and Plan: Intermittent confusion at baseline. 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 Also not drinking adequate water. Encouraged. Internal Medicine - PN: Subj Subjective Interval history: Seen and examined. No overnight events. Pain is better if she does not move. Exam Constitutional Vital Signs, click to edit/add: Last Vital Signs Temp 97.9 F 06/19/24 05:46 Pulse 112 H 06/19/24 05:46 Resp 18 06/19/24 05:46 BP 131/79 06/19/24 05:46 Pulse Ox 94 L 06/19/24 11:05 O2 Del Method Room Air 06/19/24 11:05 Documenting provider has reviewed patient's vital signs: yes Common normals: no apparent distress and oriented x3 General appearance: cooperative Respiratory Common normals: normal respiratory effort and clear to auscultation bilaterally Effort & inspection: able to speak in complete sentences Auscultation: clear to auscultation bilaterally Cardio Common normals: regular rate, S1 normal heart sound and S2 normal heart sound Rate: regular rate Heart sounds: S1 normal and S2 normal Extremity Other: Right foot - bruising noted. Neuro Common normals: moves all extremities and no focal motor deficits Psych Common normals: mental status grossly normal, denies hallucinations, denies homicidal ideation and denies suicidal ideation Internal Medicine - PN: Obj Da Labs Labs: Laboratory Results - last 24 hr 06/19/24 05:40 WBC 18.6 H RBC 3.81 L Hgb 8.3 L Hct 27.3 L MCV 71.7 L MCH 21.8 L MCHC 30.4 RDW 26.0 H Plt Count 314 MPV 10.1 Neut % (Auto) 75.5 H Lymph % (Auto) 9.1 L [place] % (Auto) 14.2 H Eos % (Auto) 0.1 L Baso % (Auto) 0.2 Neut # (Auto) 14.1 H Lymph # (Auto) 1.7 [place] # (Auto) 2.7 H Eos # (Auto) 0.0 Baso # (Auto) 0.0 Abs Immat Gran (auto) 0.17 H Imm/Tot Granulo (auto) 0.9 H Sodium 144 Potassium 3.3 L Chloride 110 H Carbon Dioxide 28.0 Anion Gap 9.3 BUN 19.0 H Creatinine 1.13 H Est GFR ( Amer) 55 L Est GFR (Non-Af Amer) 45 L BUN/Creatinine Ratio 16.8 Glucose 136 H Calcium 7.5 L Total Bilirubin 0.4 AST 26 ALT 21 Alkaline Phosphatase 131 H Total Protein 5.2 L Albumin 2.0 L Globulin 3.2 Albumin/Globulin Ratio 0.6 Urinary Catheter Management Urinary Catheter Management Straight: Cath placed during this visit: yes Urethral indwelling: No Insertion date: 06/18/24 Insertion time: 12:12
[2024-06-19 13:25] VITALS: BP 117/78; PULSE 100; TEMP 36.3; O2SAT 94
[2024-06-19] MEDS: ENOXAPARIN SODIUM 30 MG/0.3 ML SYRINGE SUBQ (16:28)
[2024-06-19 19:37] VITALS: BP 115/72; PULSE 103; TEMP 36.5; O2SAT 93
[2024-06-19 19:49] VITALS: O2SAT 94
[2024-06-19] MEDS: CEFTRIAXONE 1,000 MG in 0.9 % SODIUM CHLORIDE 50 ML 100 MG IV (21:57)
[2024-06-19] MEDS: DONEPEZIL HCL 10 MG TABLET PO (21:57)
[2024-06-19] MEDS: MIRTAZAPINE 15 MG TABLET PO (21:57)
[2024-06-19] MEDS: ATORVASTATIN CALCIUM 10 MG TABLET 5 MG PO (21:58)
[2024-06-20] MEDS: LACTATED RINGER'S SOLUTION 1,000 ML 125 ML IV ×2 (01:56→17:25)
[2024-06-20 03:00] VITALS: BP 124/74; PULSE 104; TEMP 36.4; O2SAT 95
[2024-06-20 06:01] LABS: Basophils Percent Auto 0.1 % (0.2-2.0); Hematocrit 31.9 % (36.0-48.0); Hemoglobin 9.8 g/dL (12.0-16.0); Immature Granulocytes Pct Auto 0.9 % (0.0-0.5); Lymphocytes Absolute Auto 0.9 10^3/uL (1.2-3.8); Lymphocytes Percent Auto 4.4 % (20.5-60.0); Mean Corpuscular HGB Conc 30.7 g/dL (29.9-35.2); Mean Corpuscular Hemoglobin 22.3 pg (26.7-34.0); Mean Corpuscular Volume 72.7 fL (81.0-99.0); Mean Platelet Volume 10.6 fL (9.5-13.5); Monocytes Absolute Auto 1.9 10^3/uL (0.3-0.8); Neutrophils Absolute Auto 18.1 10^3/uL (1.4-6.5); Neutrophils Percent Auto 85.6 % (43.0-75.0); Platelet Count 422 10^3/uL (150-450); Red Blood Count 4.39 10^6/uL (4.20-5.40); Red Cell Distribution Width 26.5 % (11.0-15.0); White Blood Count 21.2 10^3/uL (4.0-11.0)
[2024-06-20 06:24] LABS: Alanine Aminotransferase 29 U/L (14-59); Albumin Globulin Ratio 0.5; Albumin Level 1.9 g/dL (3.4-5.0); Alkaline Phosphatase 163 U/L (46-116); Anion Gap 9.3; Aspartate Amino Transferase 58 U/L (15-37); BUN Creatinine Ratio 18.1; Bilirubin Total 0.4 mg/dL (0.2-1.0); Calcium 8.2 mg/dL (8.5-10.1); Carbon Dioxide 28.8 mmol/L (21.0-32.0); Chloride 107 mmol/L (98-107); Estimated GFR (African America 53 (>=60 mL/min/1.73m^2); Estimated GFR (Non-African Ame 44 (>=60 mL/min/1.73m^2); Globulin 3.9 g/dL; Glucose 174 mg/dL (74-106); Potassium 4.1 mmol/L (3.5-5.1); Sodium 141 mmol/L (136-145); Total Protein 5.8 g/dL (6.4-8.2)
--- NOTE | 2024-06-20 08:54 | XR_ITS ---
The [address] [address] Patient Name: BILL KO MRN: [id number] date: 1935 Sex: F Assigned Patient Location: [place] Current Patient Location: [place] Accession/Order Number: [id number] Exam Date: 06/20/2024 08:42 Report Date: 06/20/2024 09:07 At the request of: NESTOR REYES Procedure: XR acute abdomen series EXAMINATION: XR acute abdomen series HISTORY: pain ; back pain COMPARISON: XR chest 08/21/2017, CT lumbar spine 11/02/2019 FINDINGS: LUNGS: Hyperexpanded lungs suggestive COPD. Mild haziness within lateral left lung base. MEDIASTINUM: Cardiomegaly. BOWEL GAS PATTERN: Air-filled loops of bowel without abnormal dilation or obstruction. Numerous surgical clips within left upper quadrant and upper pelvis. Bowel sutures within left upper quadrant. FREE AIR: None. CALCIFICATIONS: Multiple small rounded calcifications projecting anterior to the lower spine suspected to be within the right kidney which lies in transverse position anterior to the spine. BONES: Mild curvature of thoracolumbar spine and prior compression fracture and vertebroplasty of L1. Moderate degenerative changes of the hip joints. OTHER: Negative. XR/XR acute abdomen series IMPRESSION: 1. Hyperexpanded lungs compatible with COPD. 2. Mild lingular infiltrates versus atelectasis. 3. Cardiomegaly; new since prior study. 4. Right nephrolithiasis. 5. Normal bowel gas pattern. No acute abdominal findings. Electronically authenticated by: CACHORRO MEDRANO Date: 06/20/2024 09:07
[2024-06-20] MEDS: CIPROFLOXACIN IN 5 % DEXTROSE 400 MG/200 ML PREMIX 200 MG IV ×2 (09:05→20:15)
[2024-06-20 09:06] VITALS: BP 131/81
[2024-06-20] MEDS: SERTRALINE HCL 50 MG TABLET 12.5 MG PO (09:06)
[2024-06-20] MEDS: AMLODIPINE BESYLATE 5 MG TABLET PO (09:06)
[2024-06-20] MEDS: ACETAMINOPHEN 325 MG TABLET 650 MG PO ×2 (09:06→21:33)
[2024-06-20] MEDS: ENSURE ORIGINAL 237 ML BOTTLE PO ×2 (09:07→21:33)
[2024-06-20] MEDS: BUDESONIDE 0.5 MG/2 ML AMPULE NEB IH (09:11)
[2024-06-20 09:12] VITALS: PULSE 87; O2SAT 97
--- NOTE | 2024-06-20 09:20 | CM.NOTE ---
Rounds made with Dr. Lopes, no discharge today. Pt will be changed to inpatient status with further work-up.
--- NOTE | 2024-06-20 09:20 | SWNOTE1 ---
Pt is from [facility]. TERRIE had message from Amrita at [facility] and Shellie from [facility] spoke with family and they would like pt to go to [facility] skilled. Pt is a precert. TERRIE to speak with family.
--- NOTE | 2024-06-20 09:51 | SWNOTE1 ---
TERRIE spoke with daughter, Sonia on the phone. TERRIE spoke with her about SNF and that SW had an email about pt going to [facility] for rehab. Sonia did state that she does like [facility] better than [facility], but in the end [facility] does not take Medicaid. SW let her know that patient would be skilled under her [facility] Medicare, but then once she is done with rehab and can return to [facility] or [place], [place] has very limited beds. Sonia would like to proceed with [facility] for rehab so she does not have to move her twice. Daughter also stated we are waiting to see how she does with therapy to see if she can even do rehab. Sonia will be here around 12:30. Sonia is alright with SW sending referral to [facility]. Pt is a precert. Sonia asked if she needs 3 day stay? TERRIE explained she does not and she is a precert and we have to wait for the insurance to approved her to go skilled. She voiced understanding.
--- NOTE | 2024-06-20 11:29 | P.PN_ITS ---
Progress Note: Subjective Subjective Interval history: Patient without complaints this morning, sounds like pain is fairly well- controlled Exam Constitutional Vital Signs, click to edit/add: Last Vital Signs Temp 97.6 F 06/20/24 03:00 Pulse 87 06/20/24 09:12 Resp 18 06/20/24 09:12 BP 131/81 06/20/24 09:06 Pulse Ox 97 06/20/24 09:12 O2 Del Method Room Air 06/20/24 09:12 O2 Flow Rate 18 06/20/24 09:12 Documenting provider has reviewed patient's vital signs: yes Common normals: no apparent distress Chest Common normals: inspection of chest normal Respiratory Common normals: normal respiratory effort and no retractions Cardio Common normals: regular rhythm; irregular rate Rate: tachycardic GI Common normals: Normal to inspection, nondistended, normoactive bowel sounds present and soft to palpation Progress Note: Objective Labs Labs: Short CBC 06/20/24 Range/Units 05:47 WBC 21.2 H (4.0-11.0) 10^3/uL Hgb 9.8 L (12.0-16.0) g/dL Hct 31.9 L (36.0-48.0) % Plt Count 422 (150-450) 10^3/uL BMP 06/20/24 05:47 Sodium 141 Potassium 4.1 Chloride 107 Carbon Dioxide 28.8 BUN 21.0 H Creatinine 1.16 H Glucose 174 H Calcium 8.2 L Liver Function 06/20/24 Range/Units 05:47 Total Bilirubin 0.4 (0.2-1.0) mg/dL AST 58 H (15-37) U/L ALT 29 (14-59) U/L Alkaline Phosphatase 163 H (46-116) U/L Albumin 1.9 L (3.4-5.0) g/dL Progress Note: A&P Assessment and Plan (1) Closed fracture of right inferior pubic ramus: Qualifiers: Encounter type: subsequent encounter Fracture healing: with routine healing Qualified Code(s): S32.591D - Other specified fracture of right pubis, subsequent encounter for fracture with routine healing (2) Closed fracture of right superior pubic ramus: Qualifiers: Encounter type: subsequent encounter Fracture healing: with routine healing Qualified Code(s): S32.511D - Fracture of superior rim of right pubis, subsequent encounter for fracture with routine healing (3) Acute UTI: (4) Leukocytosis: Qualifiers: Leukocytosis type: leukemoid reaction Qualified Code(s): D72.823 - Leukemoid reaction (5) HTN (hypertension): Qualifiers: Hypertension type: primary hypertension Qualified Code(s): I10 - Essential (primary) hypertension (6) Dementia: Qualifiers: Alzheimer's disease onset: late onset Dementia behavioral or psychological symptom: with anxiety Dementia severity: severe Dementia type: Alzheimer's Qualified Code(s): G30.1 - Alzheimer's disease with late onset; 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, severe, with anxiety (7) Severe protein-calorie malnutrition: Plan Admission findings: Tachycardia, leukocytosis, hypernatremia, hypokalemia, acute elevation in creatinine, positive urinalysis consistent with acute UTI causing sepsis (tachycardia, leukocytosis, known infectious source of urine, lactate not obtained on admission that may have resulted in severe sepsis, patient will be unable to tolerate aggressive fluid resuscitation anyway) Sepsis-as outlined above secondary to acute UTI-culture pending, white blood cell count remains persistently elevated over 20,000 on day 3 of hospitalization, change IV antibiotics, try to obtain urine culture results Closed fracture of right inferior pubic ramus: Physical therapy to work with patient today Closed fracture of right superior pubic ramus: PT to work with patient today HTN (hypertension): Stable, continue with current medications Depression-continue with current medications Dementia: Deteriorated secondary to the acute UTI, sepsis and change in environment Severe protein-calorie malnutrition: Diet supplementation Iron deficiency anemia-improved today Hyponatremia on admission-resolved Hypokalemia on admission-resolved Elevated liver function tests-this is likely secondary to the sepsis as outlined above, slightly elevated today, continue to monitor Admission status: Patient placed in initial observation time period, white blood cell count has remained persistently elevated and is currently still over 20,000, failing the initial timeframe of observation, with significantly elevated white blood cell count, sepsis persisting, patient will be changed to inpatient status as medically necessary treatment will span more than 2 midnights Urinary Catheter Management Urinary Catheter Management Straight: Cath placed during this visit: yes Urethral indwelling: No Insertion date: 06/18/24 Insertion time: 12:12
[2024-06-20 12:09] VITALS: BP 113/70; PULSE 80; TEMP 36.4; O2SAT 93
--- NOTE | 2024-06-20 14:20 | SWNOTE1 ---
Important Message from [employer] reviewed and discussed with patient's daughter. Pt's daughter verbalized understanding and signed the form. Original given to patient's daughter and copy placed in patient?s chart.
[2024-06-20] MEDS: ENOXAPARIN SODIUM 30 MG/0.3 ML SYRINGE SUBQ (17:24)
[2024-06-20 20:00] VITALS: BP 126/74; PULSE 82; TEMP 36.9; O2SAT 95
[2024-06-20] MEDS: MIRTAZAPINE 15 MG TABLET PO (21:33)
[2024-06-20] MEDS: ATORVASTATIN CALCIUM 10 MG TABLET 5 MG PO (21:33)
[2024-06-20] MEDS: CEFTRIAXONE 1,000 MG in 0.9 % SODIUM CHLORIDE 50 ML 100 MG IV (21:33)
[2024-06-20] MEDS: DONEPEZIL HCL 10 MG TABLET PO (21:33)
[2024-06-20 21:58] VITALS: O2SAT 95
[2024-06-21] MEDS: LACTATED RINGER'S SOLUTION 1,000 ML 125 ML IV (05:35)
[2024-06-21 05:43] VITALS: BP 152/81; PULSE 87; TEMP 36.6
[2024-06-21 06:21] LABS: Basophils Percent Auto 0.2 % (0.2-2.0); Eosinophils Absolute Auto 0.1 10^3/uL (0.0-0.7); Eosinophils Percent Auto 0.4 % (0.9-7.0); Hematocrit 29.9 % (36.0-48.0); Hemoglobin 9.1 g/dL (12.0-16.0); Immature Granulocytes Abs Auto 0.16 10^3/uL (0.00-0.03); Immature Granulocytes Pct Auto 0.9 % (0.0-0.5); Lymphocytes Absolute Auto 1.7 10^3/uL (1.2-3.8); Lymphocytes Percent Auto 10.3 % (20.5-60.0); Mean Corpuscular HGB Conc 30.4 g/dL (29.9-35.2); Mean Corpuscular Hemoglobin 21.8 pg (26.7-34.0); Mean Corpuscular Volume 71.7 fL (81.0-99.0); Monocytes Absolute Auto 1.5 10^3/uL (0.3-0.8); Monocytes Percent Auto 8.7 % (1.7-12.0); Neutrophils Absolute Auto 13.4 10^3/uL (1.4-6.5); Neutrophils Percent Auto 79.5 % (43.0-75.0); Platelet Count 253 10^3/uL (150-450); Red Blood Count 4.17 10^6/uL (4.20-5.40); Red Cell Distribution Width 26.5 % (11.0-15.0); White Blood Count 16.9 10^3/uL (4.0-11.0)
[2024-06-21 06:43] LABS: Alanine Aminotransferase 41 U/L (14-59); Albumin Globulin Ratio 0.5; Albumin Level 1.8 g/dL (3.4-5.0); Alkaline Phosphatase 151 U/L (46-116); Anion Gap 10.8; Aspartate Amino Transferase 85 U/L (15-37); Bilirubin Total 0.3 mg/dL (0.2-1.0); Chloride 108 mmol/L (98-107); Estimated GFR (African America 60 (>=60 mL/min/1.73m^2); Estimated GFR (Non-African Ame 49 (>=60 mL/min/1.73m^2); Globulin 3.7 g/dL; Glucose 118 mg/dL (74-106); Potassium 3.8 mmol/L (3.5-5.1); Sodium 141 mmol/L (136-145); Total Protein 5.5 g/dL (6.4-8.2)
--- OUTSIDE RECORDS SUMMARY | 2024-06-21 07:31 | XMS_ITS | CCD ---
Author Organization [facility] Inform ion Partnership [facility] Care Team Providers Care Shop Helper Name Role Phone Timothy Washington Primary Care Provider [phone] Kristy Rowe Attending Provider TIMOTHY WASHINGTON Primary [...] Unavailable Furlong Timothy SNYDER Primary Care Provider TIMOTHY WASHINGTON Referring Unavailable STEPHANIALONG, TIMOTHY G [...] Clindamycin; Translations: [CLINDAMYCIN] Drug Allergy 0 Rash [facility] (11 sources) Latex; Translations: [latex] Allergy to substance 3 Rash [facility] (10 sources) Sulfonamides (Antibiotic); Translations: [SULFA (SULFONAMIDE ANTIBIOTICS)] Allergy to substance 3 Other (See Comments) [facility] (1 source) Sulfonamides (Antibiotic) Drug allergy (disorder) 5 [facility] Medications Current Medications [...] Active docusate sodium 50 mg / sennosides, fpc 8.6 mg oral tablet (7 sources) Start: [...] mouth in the morning. 0 12/24/2004 Active Pinszjiaemrq-Fqiq-Hckqj Acid (1 source) Start: 02-20-2020 take 1 tablet by mouth once daily Evfqhjjepgcg-Rspi-Hglmj Acid Active 1 TAB Oral Daily February 20, 2020 10:23am Capitola-3 Fatty Acids (1 source) Start: 02-20-2020 take 1000 mg by mouth once daily Capitola-3 Fatty Acids Active 1000 MG Oral Daily February 20, 2020 10:23am pantoprazole 40 mg extended release oral tablet (1 source) Proton Pump Inhibitor Start: 02-20-2020 take 40 mg by mouth once daily Pantoprazole Active 40 MG Oral Daily February 20, 2020 10:23am polyethylene glycol 3350 36847 mg powder for oral solution (5 sources) [...] 12-10-2023 Albumin [Mass/Vol] 4.0 g/dL Normal 3.2-5.3 [facility] Comment on above: Performed By: #### C CATY, 63517-8 #### [facility] ([id number]) [address], [address] [place] [address] ALP [Catalytic activity/Vol] 121 U/L Normal 39-130 [facility] Comment on above: Performed By: #### Lakshmi BYRNE, 60134-9 #### [facility] ([id number]) [address], [address] [place] [address] ALT [Catalytic activity/Vol] 24 U/L Normal 0-31 [facility] Comment on above: Performed By: #### Lakshmi BYRNE, 26787-2 #### [facility] ([id number]) [address], [address] [place] [address] Anion gap [Moles/Vol] 9 mmol/L Normal 5-15 [facility] Comment on above: Performed By: #### Lakshmi BYRNE, 22852-1 #### [facility] ([id number]) [address], [address] [place] [address] AST [Catalytic activity/Vol] 33 U/L Normal 0-41 [facility] Comment on above: Performed By: #### Lakshmi BYRNE, 52140-2 #### [facility] ([id number]) [address], [address] [place] [address] Bilirubin [Mass/Vol] 0.3 mg/dL Normal 0.3-1.2 [facility] Comment on above: Performed By: #### Lakshmi BYRNE, 01543-4 #### [facility] ([id number]) [address], [address] [place] [address] Calcium [Mass/Vol] 8.8 mg/dL Normal 8.5-10.5 [facility] Comment on above: Performed By: #### Lakshmi BYRNE, 81395-2 #### [facility] ([id number]) [address], [address] [place] [address] Chloride [Moles/Vol] 106 mmol/L Normal 98-109 [facility] Comment on above: Performed By: #### Lakshmi BYRNE, 43627-8 #### [facility] ([id number]) [address], [address] [place] [address] CO2 [Moles/Vol] 26 mmol/L Normal 22-32 [facility] Comment on above: Performed By: #### Lakshmi BYRNE, 27909-6 #### [facility] ([id number]) [address] [place] [address] Creatinine [Mass/Vol] 1.14 mg/dL High 0.40-1.00 [facility] Comment on above: Result Comment: METH OD TRACEABLE TO IDMS STANDARD Performed By: #### Lakshmi BYRNE, 84480-2 #### [facility] ([id number]) [address], [address] [place] [address] GFR/1.73 sq M.predicted among non-blacks MDRD (S/P/Bld) [Vol rate/Area] 47 mL/min/{1.73_m2} Low >59 [facility] Comment on above: Result Comment: Reported eGFR is based on the CKD-EPI 2020 equation that does not use a race coefficient. Performed By: #### Lakshmi BYRNE, 64738-7 #### [facility] ([id number]) [address] [place] [address] Glucose [Mass/Vol] 96 mg/dL Normal 65-99 [facility] Comment on above: Performed By: #### Lakshmi BYRNE, 59634-9 #### [facility] ([id number]) [address], [address] [place] [address] Potassium [Moles/Vol] 4.1 mmol/L Normal 3.5-5.0 [facility] Comment on above: Performed By: #### Lakshmi BYRNE 69851-5 #### [facility] ([id number]) [address], [address] [place] [address] Protein [Mass/Vol] 7.0 g/dL Normal 6.0-8.0 [facility] Comment on above: Performed By: #### Lakshmi BYRNE 82813-9 #### [facility] ([id number]) [address], [address] [place] [address] Sodium [Moles/Vol] 141 mmol/L Normal 134-146 [facility] Comment on above: Performed By: #### C CATY, 80639-1 #### [facility] ([id number]) [address], [address] [place] [address] Urea nitrogen [Mass/Vol] 21 mg/dL Normal 5-27 [facility] Comment on above: Performed By: #### C CATY, 34693-7 #### [facility] ([id number]) [address], [address] [place] [address] Lipid 1996 panelon 4 Cholesterol [Mass/Vol] 163 mg/dL Normal 150-200 [facility] Comment on above: Performed By: #### C CATY, 99684-5 #### [facility] ([id number]) [address], [address] [place] [address] Cholesterol in HDL [Mass/Vol] 76 mg/dL Normal >39 [facility] Comment on above: Result Comment: HDL <40 mg/dL - High Risk HDL > or = 40mg/dL- Desirable HDL >60 mg/dL - Negative Risk Performed By: #### C CATY, 11081-8 #### [facility] ([id number]) [address], [address] [place] [address] Cholesterol in LDL [Mass/Vol] 71 mg/dL Normal <130 [facility] Comment on above: Result Comment: LDL <100 mg/dL - Desirable LDL >160 mg/dL - High Risk Performed By: #### C CATY, 00269-1 #### [facility] ([id number]) [address], [address] [place] [address] Cholesterol in VLDL [Mass/Vol] 16 mg/dL Normal 0-30 [facility] Comment on above: Performed By: #### C CATY, 49804-0 #### [facility] ([id number]) [address], [address] [place] [address] CHOLESTEROL:HDL 2.1 Normal 1.0-5.0 [facility] Comment on above: Performed By: #### C CATY, 67702-6 #### [facility] ([id number]) [address], [address] [place] [address] Triglyceride [Mass/Vol] 82 mg/dL Normal 27-150 [facility] Comment on above: Performed By: #### Lakshmi BYRNE, 68731-7 #### [facility] ([id number]) [address], [address] [place] [address] CULTURE, URINE, ROUTINEon CULTURE, URINE, ROUTINE SEE NOTE Normal [facility] Comment on above: Result Comment: CULTURE, URINE, ROUTINE Micro Number: [id number] Test Status: Final Specimen Source: Urine Specimen Quality: Adequate Result: Growth of mixed fran was isolated, suggesting probable contamination. No further testing will be performed. If clinically indicated, recollection using a method to minimize contamination, with prompt transfer to Urine Culture Transport Tube, is recommended. Performed By: #### 3 95 #### [facility] [address], [address] [place] [phone] Social Professionals: Shashi Hutchins MD BASIC METABOLIC PANELon 03-26 Calcium [Mass/Vol] 9.1 mg/dL Normal 8.6-10.4 [facility] Comment on above: Performed By: #### 1 0165, 0870 #### [facility] [address], [address] [place] [phone] Social Professionals: Shashi Hutchins MD Chloride [Moles/Vol] 108 mmol/L Normal 98-110 [facility] Comment on above: Performed By: #### 1 0165, 7600 #### [facility] [place] [address] Social Professionals: Shashi Hutchins MD CO2 [Moles/Vol] 27 mmol/L Normal 20-32 [facility] Comment on above: Performed By: #### 1 016, 7600 #### [facility] [place] [address] Social Professionals: Shashi Hutchins MD Creatinine [Mass/Vol] 0.99 mg/dL High 0.60-0.88 [facility] Comment on above: Result Comment: For patients >49 years of age, the reference limit for Creatinine is approximately 13% higher for people identified as -British. Performed By: #### 1 016, 0 #### [facility] [place] [address] Social Professionals: Shashi Hutchins MD eGFR NON-AFR. FAROESE 52 mL/min/1.73m2 Low > OR = 60 [facility] Comment on above: Performed By: #### 1 016, 7600 #### [facility] [place] [address] Social Professionals: Shashi Hutchins MD GFR/1.73 sq M.predicted among blacks MDRD (S/P/Bld) [Vol rate/Area] 60 mL/min/{1.73_m2} Normal > OR = 60 [facility] Comment on above: Performed By: #### 1 016, 7600 #### [facility] [place] [address] Social Professionals: Shashi Hutchins MD Glucose [Mass/Vol] 113 mg/dL Normal 65-139 [facility] Comment on above: Result Comment: Non-fasting reference interval For someone without known diabetes, a glucose value between 100 and 125 mg/dL is consistent with prediabetes and should be confirmed with a follow-up test. Performed By: #### 1 0165, 7600 #### [facility] of [address], [address] [place] [address] Social Professionals: Shashi Hutchins MD Potassium [Moles/Vol] 3.9 mmol/L Normal 3.5-5.3 [facility] Comment on above: Performed By: #### 1 0165, 7600 #### [facility] of [address], [address] [place] [address] Social Professionals: Shashi Hutchins MD Sodium [Moles/Vol] 143 mmol/L Normal 135-146 [facility] Comment on above: Performed By: #### 1 0165, 7600 #### [facility] of [address], [address] [place] [address] Social Professionals: Shashi Hutchins MD Urea nitrogen [Mass/Vol] 17 mg/dL Normal 7-25 [facility] Comment on above: Performed By: #### 1 0165, 7600 #### [facility] of [address], [address] [place] [address] Social Professionals: Shashi Hutchins MD Urea nitrogen/Creatinin e [Mass ratio] 17 mg/mg Normal 6-22 [facility] Comment on above: Performed By: #### 1 0165, 7600 #### [facility] of [place] [address] Social Professionals: Shashi Hutchins MD LIPID PANEL, [place] [address]-2 Cholesterol [Mass/Vol] 151 mg/dL Normal <200 [facility] Comment on above: Order Comment: FASTI NG:NO FASTING: NO Performed By: #### 1 0165, 7600 #### [facility] of [place] [address] Social Professionals: Shashi Hutchins MD Cholesterol in HDL [Mass/Vol] 67 mg/dL Normal > OR = 50 [facility] Comment on above: Order Comment: FASTI NG:NO FASTING: NO Performed By: #### 1 0165, 7600 #### [facility] of [place] [address] Social Professionals: Shashi Hutchins MD Cholesterol in LDL [Mass/Vol] [...] of LDL-C. Jac BHATT et al. SUMAYA. 2013;310(69): 3424-7569 (http://education.Joosy/faq/KWM145) Performed By: #### 1 0165, 7600 #### [facility] [address], [address] [place] [address] Social Professionals: Shashi Hutchins MD Cholesterol.total/ Cholesterol in HDL [Mass ratio] 2.3 {ratio} Normal <5.0 [facility] Comment on above: Order Comment: FASTI NG:NO FASTING: NO Performed By: #### 1 0165, 7600 #### [facility] [place] [address] Social Professionals: Shashi Hutchins MD NON HDL CHOLESTEROL 84 mg/dL (calc) Normal <130 [facility] Comment on above: Order Comment: FASTI NG:NO FASTING: NO Result Comment: For patients with diabetes plus 1 major ASCVD risk factor, treating to a non-HDL-C goal of <100 mg/dL (LDL-C of <70 mg/dL) is considered a therapeutic option. Performed By: #### 1 0165, 7600 #### [facility] [address], [address] [place] [address] Social Professionals: Shashi Hutchins MD Triglyceride [Mass/Vol] 90 mg/dL Normal <150 [facility] Comment on above: Order Comment: FASTI NG:NO FASTING: NO Performed By: #### 1 0165, 7600 #### [facility] of [place] [address] [place] [address] Social Professionals: Shashi Hutchins MD CBC (INCLUDES DIFF/PLT)on Basophils (Bld) [#/Vol] 0.056 10*3/uL Normal 0-200 [facility] Comment on above: Performed By: #### 6 22, 6399, 15847, 718, 905, 49929 #### [facility] of [place] [address] Social Professionals: Shashi Hutchins MD Basophils/100 WBC (Bld) 0.6 % Normal [facility] Comment on above: Performed By: #### 6 22, 6399, 25050, 718, 905, 03099 #### [facility] [place] [address] Social Professionals: Shashi Hutchins MD Eosinophils (Bld) [#/Vol] 0.112 10*3/uL Normal 15-500 [facility] Comment on above: Performed By: #### 6 22, 6399, 42630, 718, 905, 18198 #### [facility] [place] [address] Social Professionals: Shashi Hutchins MD Eosinophils/100 WBC (Bld) 1.2 % Normal [facility] Comment on above: Performed By: #### 6 22, 6399, 64090, 718, 905, 77992 #### [facility] of [place] [address] Social Professionals: Shashi Hutchins MD Erythrocyte distribution width (RBC) [Ratio] 17.6 % High 11.0-15.0 [facility] Comment on above: Performed By: #### 6 22, 6399, 66592, 718, 905, 34083 #### [facility] of [place] [address] Social Professionals: Shashi Hutchins MD Hematocrit (Bld) [Volume fraction] 36.2 % Normal 35.0-45.0 [facility] Comment on above: Performed By: #### 6 22, 6399, 72701, 718, 905, 82947 #### [facility] of [place] [address] Social Professionals: Shashi Hutchins MD Hemoglobin (Bld) [Mass/Vol] 10.8 g/dL Low 11.7-15.5 [facility] Comment on above: Performed By: #### 6 22, 63, 73467, 71, 905, 24509 #### [facility] of [address], [address] [place] [address] Social Professionals: Shashi Hutchins MD Lymphocytes (Bld) [#/Vol] 2.483 10*3/uL Normal 850-3900 [facility] Comment on above: Performed By: #### 6 22, 63, 28759, 71, 905, 64077 #### [facility] of [place] [address] Social Professionals: Shashi Hutchins MD Lymphocytes/100 WBC (Bld) 26.7 % Normal [facility] Comment on above: Performed By: #### 6 22, 63, 39398, 71, 905, 36944 #### [facility] of [place] [address] Social Professionals: Shashi Hutchins MD MCH (RBC) [Entitic mass] 23.0 pg Low 27.0-33.0 [facility] Comment on above: Performed By: #### 6 , 63, 91518, 71, 905, 81744 #### [facility] of [place] [address] Social Professionals: Shashi Hutchins MD MCHC (RBC) [Mass/Vol] 29.8 g/dL Low 32.0-36.0 [facility] Comment on above: Performed By: #### 6 22, 63, 99569, 718, 905, 36338 #### [facility] of [place] [address] Social Professionals: Shashi Hutchins MD MCV (RBC) [Entitic vol] 77.2 fL Low 80.0-100.0 [facility] Comment on above: Performed By: #### 6 22, 6399, 30830, 718, 905, 21097 #### [facility] of [place] [address] Social Professionals: Shashi Hutchins MD Monocytes (Bld) [#/Vol] 0.856 10*3/uL Normal 200-950 [facility] Comment on above: Performed By: #### 6 22, 6399, 62314, 718, 905, 26848 #### [facility] of [place] [address] Social Professionals: Shashi Hutchins MD Monocytes/100 WBC (Bld) 9.2 % Normal [facility] Comment on above: Performed By: #### 6 22, 63, 13784, 718, 905, 87321 #### [facility] of [place] [address] Social Professionals: Shashi Hutchins MD Neutrophils (Bld) [#/Vol] 5.794 10*3/uL Normal 5313-2244 [facility] Comment on above: Performed By: #### 6 22, 6399, 48145, 718, 905, 30544 #### [facility] [place] [address] Social Professionals: Shashi Hutchins MD Neutrophils/100 WBC (Bld) 62.3 % Normal [facility] Comment on above: Performed By: #### 6 22, 6399, 10741, 718, 905, 75129 #### [facility] of [place] [address] Social Professionals: Shashi Hutchins MD Platelet mean volume (Bld) [Entitic vol] 11.0 fL Normal 7.5-12.5 [facility] Comment on above: Performed By: #### 6 22, 6399, 56797, 718, 905, 73906 #### [facility] of [place] [address] Social Professionals: Shashi Hutchins MD Platelets (Bld) [#/Vol] 556 10*3/uL High 140-400 [facility] Comment on above: Performed By: #### 6 22, 6399, 33085, 718, 905, 79574 #### [facility] of [place] [address] Social Professionals: Shashi Hutchins MD RBC (Bld) [#/Vol] 4.69 10*6/uL Normal 3.80-5.10 [facility] Comment on above: Performed By: #### 6 22, 6399, 83561, 718, 905, 22891 #### [facility] of [place] [address] Social Professionals: Shashi Hutchins MD WBC (Bld) [#/Vol] 9.3 10*3/uL Normal 3.8-10.8 [facility] Comment on above: Performed By: #### 6 22, 6399, 91298, 718, 905, 96337 #### [facility] of [place] [address] Social Professionals: Shashi Hutchins MD [facility] 09-06-2020 Albumin [Mass/Vol] 4.2 g/dL Normal 3.6-5.1 [facility] Comment on above: Performed By: #### 6 22, 6399, 80103, 718, 905, 03732 #### [facility] of [place] [address] Social Professionals: Shashi Hutchins MD Albumin/Globulin [Mass ratio] 1.4 {ratio} Normal 1.0-2.5 [facility] Comment on above: Performed By: #### 6 22, 6399, 34529, 718, 905, 89140 #### [facility] of [place] [address] Social Professionals: Shashi Hutchins MD ALP [Catalytic activity/Vol] 112 U/L Normal 37-153 [facility] Comment on above: Performed By: #### 6 22, 6399, 42746, 71, 905, 46552 #### [facility] of [place] [address] Social Professionals: Shashi Hutchins MD ALT [Catalytic activity/Vol] 14 U/L Normal 6-29 [facility] Comment on above: Performed By: #### 6 22, 63, 21698, , 905, 88661 #### [facility] of [place] [address] Social Professionals: Shashi Hutchins MD AST [Catalytic activity/Vol] 25 U/L Normal 10-35 [facility] Comment on above: Performed By: #### 6 22, 63, 30537, 71, 905, 10198 #### [facility] of [place] [address] Social Professionals: Shashi Hutchins MD Bilirubin [Mass/Vol] 0.3 mg/dL Normal 0.2-1.2 [facility] Comment on above: Performed By: #### 6 22, 63, 57659, 71, 905, 50127 #### [facility] of [place] [address] Social Professionals: Shashi Hutchins MD Calcium [Mass/Vol] 9.2 mg/dL Normal 8.6-10.4 [facility] Comment on above: Performed By: #### 6 22, 63, 39419, 71, 905, 01647 #### [facility] of [place] [address] Social Professionals: Shashi Hutchins MD Chloride [Moles/Vol] 108 mmol/L Normal 98-110 [facility] Comment on above: Performed By: #### 6 22, 63, 85132, 718, 905, 71547 #### [facility] of [place] [address] Social Professionals: Shashi Hutchins MD CO2 [Moles/Vol] 25 mmol/L Normal 20-32 [facility] Comment on above: Performed By: #### 6 22, 6399, 49048, 718, 905, 05307 #### [facility] [place] [address] Social Professionals: Shashi Hutchins MD Creatinine [Mass/Vol] 0.96 mg/dL High 0.60-0.88 [facility] Comment on above: Result Comment: For patients >49 years of age, the reference limit for Creatinine is approximately 13% higher for people identified as -British. Performed By: #### 6 22, 6399, 54263, 718, 905, 55332 #### [facility] [place] [address] Social Professionals: Shashi Hutchins MD eGFR NON-AFR. FAROESE 54 mL/min/1.73m2 Low > OR = 60 [facility] Comment on above: Performed By: #### 6 22, 6399, 64755, 718, 905, 03800 #### [facility] [place] [address] Social Professionals: Shashi Hutchins MD GFR/1.73 sq M.predicted among blacks MDRD (S/P/Bld) [Vol rate/Area] 63 mL/min/{1.73_m2} Normal > OR = 60 [facility] Comment on above: Performed By: #### 6 22, 63, 53241, 71, 905, 53943 #### [facility] [place] [address] Social Professionals: Shashi Hutchins MD Globulin (S) [Mass/Vol] 2.9 g/dL Normal 1.9-3.7 [facility] Comment on above: Performed By: #### 6 22, 6399, 04038, 718, 905, 96972 #### [facility] [place] [address] Social Professionals: Shashi Hutchins MD Glucose [Mass/Vol] 83 mg/dL Normal 65-99 [facility] Comment on above: Result Comment: Fasting reference interval Performed By: #### 6 22, 6399, 75605, 718, 905, 66954 #### [facility] of [place] [address] Social Professionals: Shashi Hutchins MD Potassium [Moles/Vol] 4.3 mmol/L Normal 3.5-5.3 [facility] Comment on above: Performed By: #### 6 22, 6399, 42754, 718, 905, 73133 #### [facility] of [place] [address] Social Professionals: Shashi Hutchins MD Protein [Mass/Vol] 7.1 g/dL Normal 6.1-8.1 [facility] Comment on above: Performed By: #### 6 22, 63, 84971, 71, 905, 72851 #### [facility] of [place] [address] Social Professionals: Shashi Hutchins MD Sodium [Moles/Vol] 143 mmol/L Normal 135-146 [facility] Comment on above: Performed By: #### 6 22, 63, 03218, 71, 905, 69552 #### [facility] of [place] [address] Social Professionals: Shashi Hutchins MD Urea nitrogen [Mass/Vol] 18 mg/dL Normal 7-25 [facility] Comment on above: Performed By: #### 6 22, 6399, 54057, 71, 905, 54193 #### [facility] of [place] [address] Social Professionals: Shashi Hutchins MD Urea nitrogen/Creatinin e [Mass ratio] 19 mg/mg Normal 6-22 [facility] Comment on above: Performed By: #### 6 22, 6399, 25631, 718, 905, 10207 #### [facility] of [place] [address] Social Professionals: Shashi Hutchins MD MAGNESIUMon 09-06-2020 Magnesium [Mass/Vol] 2.4 mg/dL Normal 1.5-2.5 [facility] Comment on above: Performed By: #### 6 22, 6399, 55547, 718, 905, 86085 #### [facility] [address], [address] [place] [address] Social Professionals: Shashi Hutchins MD PHOSPHATE ( PHOSPHORUS)on 09-06-2020 Phosphate [Mass/Vol] 4.0 mg/dL Normal 2.1-4.3 [facility] Comment on above: Performed By: #### 6 22, 6399, 87733, 718, 905, 09955 #### [facility] [place] [address] Social Professionals: Shashi Hutchins MD URIC ACIDon 09-06-2020 Urate [Mass/Vol] 5.3 mg/dL Normal 2.5-7.0 [facility] Comment on above: Result Comment: Ther apeutic target for gout patients: <6.0 mg/dL Performed By: #### 6 22, 6399, 86441, 718, 905, 66823 #### [facility] [place] [address] Social Professionals: Shashi Hutchins MD VITAMIN D,25-OH,TOTAL,IAon 0 09-06-2020 [...] D, (D2,D3), LC/MS/MS is recommended: order code 71228 (patients >2yrs). See Note 1 Note 1 For additional information, please refer to http://education.Gogo.Glad to Have You/faq/[email or web address] (This link is being provided for informational/ educational purposes only.) Performed By: #### 6 01, 8743, 20617, 640, 022, 77335 #### [facility] [address] [facility], [address] [place] [address] Social Professionals: Shashi Hutchins MD CT CSPINE WO CONon [...] JOSSY GEE Date: 2020-01-29 19:18 Normal [facility] UA (CLEAN/CATCH) MICROSCOPIC IF INDICATEon 01-17-2020 Bilirubin [Mass/Vol] Negative Normal NEGATIVE [facility] Comment on above: Performed By: #### U ARMICR ####[facility] [address] [place] [address] [place] BLOOD Negative Normal NEGATIVE [facility] Comment on above: Performed By: #### U ARMICR ####[facility] [address] [place] [address] [place] Clarity (U) CLEAR Normal [facility] Comment on above: Performed By: #### U ARMICR ####[facility] [id number] [place] [address] [place] Color (U) LT. YELLOW Normal YELLOW [facility] Comment on above: Performed By: #### U ARMICR ####[facility] [address] [place] [address] [place] Glucose [Mass/Vol] Negative Normal NEGATIVE [facility] Comment on above: Performed By: #### U ARMICR ####[facility] [address] [place] Ketones Ql (U) Negative Normal NEGATIVE [facility] Comment on above: Performed By: #### U ARMICR ####[facility] [address] [place] Nitrite Ql (U) Negative Normal NEGATIVE [facility] Comment on above: Performed By: #### U ARMICR ####[facility] [address] [place] [address] [place] pH (Bld) 7.5 Normal 5-9 [facility] Comment on above: Performed By: #### U ARMICR ####[facility] [id number] [address] [place] Protein [Mass/Vol] Negative Normal [facility] Comment on above: Performed By: #### U ARMICR ####[facility] [id number] [place] SPEC GRAVITY 1.015 Normal 1.005-<=1.025 [facility] Comment on above: Performed By: #### U SIOBHANICR ####[facility] [id number] [place] [address] [place] UR MICRO IND NOT INDICATED Normal [facility] Comment on above: Performed By: #### U ARMICR ####[facility] [address] [place] [address] [place] Urobilinogen Qn (U) 0.2 EU/dl Normal [facility] Comment on above: Performed By: #### U ARMICR ####[facility] [address] [place] [address] [place] WBC (Bld) [#/Vol] Negative Normal NEGATIVE [facility] Comment on above: Performed By: #### U ARMICR ####[facility] [id number] [place] [address] [place] XR DEXA BONE DENSITYon 12-26 XR [...] by: CACHORRO MEDRANO Date: 2019-12-27 11:[address] [facility] [address] LSPINE WO CONon 0 CT LSPINE [...] Florin ANDREWS Date: 2019-11-02 23:13 Normal [facility] CT [facility]SP[facility] TH[facility]ACIC SPINE WITHOUT CONTRAST HISTORY: Pain. COMPARISON: None available. TECHNIQUE: Helical CT images were performed of the thoracic spine without intravenous contrast. Dose reduction techniques were achieved by using automated exposure control and/or adjustment of mA and/or kV according to patient size and/or use of iterative reconstruction technique. 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 VERTEBRAL BODIES: Thoracic vertebral bodies [...] CACHORRO FLANNERY Date: 2019-11-02 22:56 Normal [facility] CULTURE URINEon 11-03-2019 CULTURE URINE Culture Observations : Heavy growth of mixed genital fran. No potential pathogens seen. Normal The [facility] Comment on above: Performed By: #### U RCX #### [facility] [address] [place], [place] [id number] Jemal Oct[place] ER URINE PROFILEon 0 Bilirubin [Mass/Vol] Negative Normal NEGATIVE [facility] Comment on above: Performed By: #### AUREA SYLVESTERRO #### [facility] [address] [place] [address] Jemal [place] BLOOD Negative Normal NEGATIVE [facility] Comment on above: Performed By: #### AUREA SYLVESTERRO #### [facility] [address] [place] [address] Jemal [place] Clarity (U) CLEAR Normal [facility] Comment on above: Performed By: #### AUREA SYLVESTERRO #### [facility] [address] [place] [address] Jemal [place] Color (U) YELLOW Normal YELLOW [facility] Comment on above: Performed By: #### YONNY SYLVESTER #### [facility] [address] [place] [address] Jemal [place] ERUAHD A micrscopic examination will be performed if indicated. Normal [facility] Comment on above: Performed By: #### YONNY SYLVESTER #### [facility] [address] [place] [address] Jemal [place] Glucose [Mass/Vol] Negative Normal NEGATIVE The [facility] Comment on above: Performed By: #### YONNY SYLVESTER #### [facility] [address] [place] [address] Jemal [place] Ketones Ql (U) 15 mg/dl Normal NEGATIVE The [facility] Comment on above: Performed By: #### YONNY SYLVESTER #### [facility] [address] [place] [address] Jemal [place] Nitrite Ql (U) Negative Normal NEGATIVE The [facility] Comment on above: Performed By: #### YONNY SYLVESTER #### [facility] [address] [place] [address] Jemal [place] pH (Bld) 5.0 Normal 5-9 [facility] Comment on above: Performed By: #### YONNY SYLVESTER #### [facility] [address] [place] [address] Jemal Dudley Protein (U) [Mass/Vol] TRACE Normal [facility] Comment on above: Performed By: #### AUREA SYLVESTERRO #### [facility] [address] [place] [address] Jemalmitch Dudley SPEC GRAVITY >=1.030 Normal 1.005-<=1.025 The [facility] Comment on above: Performed By: #### YONNY SYLVESTER #### [facility] [address] [place] [address] Jemal Dudley UR MICRO IND INDICATED Normal [facility] Comment on above: Performed By: #### YONNY SYLVESTER #### [facility] [address] [place] [address] Jemal Dudley Urobilinogen Qn (U) 0.2 EU/dl Normal [facility] Comment on above: Performed By: #### YONNY SYLVESTER #### [facility] [address] [place] [address] Jemal Dudley WBC (Bld) [#/Vol] SMALL Normal NEGATIVE The [facility] Comment on above: Performed By: #### AUREA SYLVESTERRO #### [facility] [address] [place] [address] Jemalmitch Dudley URINE MICROSCOPIC ONLYon Bacteria LM.HPF (Urine sed) [#/Area] SMALL Normal NONE SEEN The [facility] Comment on above: Performed By: #### AUREA SYLVESTERRO #### [facility] [address] [place] [address] Jemalmitch Dudley CAST NONE SEEN Normal NONE SEEN [facility] Comment on above: Performed By: #### AUREA SYLVESTERRO #### [facility] [address] [place], [place] [id number] Jemal [place] Crystals LM Nom (Urine sed) NONE SEEN Normal NONE SEEN The [facility] Comment on above: Performed By: #### E SREEKANTH, UMNIKKIERO #### [facility] [address] [id number] Jemal [place] CULTURE INDICATED Normal [facility] Comment on above: Performed By: #### E SREEKANTH, UMNIKKIERO #### [facility] [address] [place], [place] [address] Jemal [place] Epithelial cells LM.HPF (Urine sed) [#/Area] FEW Normal [facility] Comment on above: Performed By: #### E SREEKANTH, UMNIKKIERO #### [facility] [address] [place], [place] [address] Jemal [place] MUCOUS NONE SEEN Normal NONE SEEN The [facility] Comment on above: Performed By: #### Eufemia STACK, UMNIKKIERO #### [facility] [address] [id number] Jemal [place] RBC (U) [#/Vol] NONE SEEN Normal 0-2 The [facility] Comment on above: Performed By: #### Eufemia STACK, UMNIKKIERO #### [facility] [address] [id number] Jemal [place] WBC (Bld) [#/Vol] 5-10 Normal NONE SEEN The [facility] Comment on above: Performed By: #### E SREEKANTH, UMNIKKIERO #### [facility] [address] [place], [place] [address] Jemal [place] XR KNEE RT 4V or [...] SUNI FAUST Date: 2019-11-03 00:02 Normal [facility] CBC W MANUAL DIFFon 11-02-19 20 ACANTHOCYTES 2+ Normal [facility] Comment on above: Performed By: #### Lakshmi OLSON #### [facility] [address] [place] [address] Jemal [place] ATYPICAL LYMPH # Normal The [facility] Comment on above: Performed By: #### Lakshmi OLSON #### [facility] [address] [place] [address] Jemal [place] ATYPICAL LYMPH % Normal [facility] Comment on above: Performed By: #### Lakshmi OLSON #### [facility] [address] [place] [address] Jemal [place] BAND # 0.4 103/ul Critically high 0.0-0.3 The [facility] Comment on above: Performed By: #### Lakshmi OLSON #### [facility] [address] [place] [address] Jemal [place] BAND % 2 % Normal 0-5 The [facility] Comment on above: Performed By: #### Lakshmi OLSON #### [facility] [address] [place] [address] Jemal [place] BASOM # 0.00 103/ul Normal 0.00-0.10 The [facility] Comment on above: Performed By: #### Lakshmi OLSON #### [facility] [address] [place] [address] Jemal [place] BASOM % 0.0 % Critically low 0.2-2.0 The [facility] Comment on above: Performed By: #### Lakshmi OLSON #### [facility] [address] [place] [address] Jemal [place] BLAST # Normal [facility] Comment on above: Performed By: #### Lakshmi OLSON #### [facility] [address] [place] [address] Jemal [place] BLAST % Normal [facility] Comment on above: Performed By: #### Lakshmi OLSON #### [facility] [address] [place] [address] Jemal [place] CORRECTED WBC Normal 4.0-11.0 The [facility] Comment on above: Performed By: #### Lakshmi OLSON #### [facility] [address] [place] [address] Jemal [place] Eosinophils (Bld) [#/Vol] 0.00 103/ul Normal 0.00-0.70 [facility] Comment on above: Performed By: #### Lakshmi OLSON #### [facility] [address] [place], [place] [id number] Jemal [place] Eosinophils/100 WBC (Bld) 0.0 % Critically low 0.9-7.0 [facility] Comment on above: Performed By: #### C WESLEY #### [facility] [address] [place], [place] [id number] Jemal [place] Erythrocyte distribution width (RBC) [Ratio] 19.8 % Critically high 11.0-15.0 [facility] Comment on above: Performed By: #### Lakshmi OLSON #### [facility] [address] [place] [address] Jemal [place] Hematocrit (Bld) [Volume fraction] 31.4 % Critically low 36.0-48.0 [facility] Comment on above: Performed By: #### Lakshmi OLSON #### [facility] [address] [place], [place] [id number] Jemal [place] Hemoglobin (Bld) [Mass/Vol] 10.1 g/dl Critically low 12.0-16.0 [facility] Comment on above: Performed By: #### Lakshmi OLSON #### [facility] [address] [place], [place] [id number] Jemal [place] HYPOCHROMASIA SLIGHT Normal The [facility] Comment on above: Performed By: #### Lakshmi OLSON #### [facility] [address] [place] [address] Jemal [place] LYMPHM # 2.42 103/ul Normal 1.20-3.80 The [facility] Comment on above: Performed By: #### Lakshmi OLSON #### [facility] [address] [place], [place] [id number] Jemal [place] LYMPHM% 12.0 % Critically low 20.5-60.0 The [facility] Comment on above: Performed By: #### Lakshmi OLSON #### [facility] [address] [place] [address] Jemalmitch Dudley MCH (RBC) [Entitic mass] 23.5 pg Critically low 26.7-34.0 [facility] Comment on above: Performed By: #### C WESLEY #### [facility] [address] [place] [address] Jemalmitch Dudley MCHC (RBC) [Mass/Vol] 32.2 g/dl Normal 29.9-35.2 The [facility] Comment on above: Performed By: #### C WESLEY #### [facility] [address] [place] [address] Jemal [place] MCV (RBC) [Entitic vol] 73.0 fL Critically low 81.0-99.0 [facility] Comment on above: Performed By: #### Lakshmi OLSON #### [facility] [address] [place] [address] Jemal [place] METAMYELOCYTE # Normal The [facility] Comment on above: Performed By: #### Lakshmi OLSON #### [facility] [address] [place] [address] Jemal [place] METAMYELOCYTE % Normal The [facility] Comment on above: Performed By: #### Lakshmi OLSON #### [facility] [address] [place] [address] Jemal [place] MONOM# 0.40 103/ul Normal 0.30-0.80 The [facility] Comment on above: Performed By: #### Lakshmi OLSON #### [facility] [address] [place] [address] Jemal [place] MONOM% 2.0 % Normal 1.7-12.0 The [facility] Comment on above: Performed By: #### Lakshmi OLSON #### [facility] [address] [place] [address] Jemal [place] MYELOCYTE # Normal The [facility] Comment on above: Performed By: #### Lakshmi OLSON #### [facility] [address] [place] [address] Jemal [place] MYELOCYTE % Normal The [facility] Comment on above: Performed By: #### Lakshmi OLSON #### [facility] [address] [id number] Jemal [place] NRBC Normal [facility] Comment on above: Performed By: #### Lakshmi OLSON #### [facility] [address] [id number] Jemal [place] OVALOCYTES 1+ Normal [facility] Comment on above: Performed By: #### Lakshmi OLSON #### [facility] [address] [id number] Jemal [place] Platelet mean volume (Bld) [Entitic vol] 10.8 fL Normal 9.5-13.5 [facility] Comment on above: Performed By: #### Lakshmi OLSON #### [facility] [address] [id number] Jemal [place] Platelets (Bld) [#/Vol] 321 103/ul Normal 150-450 [facility] Comment on above: Performed By: #### Lakshmi OLSON #### [facility] [address] [id number] Jemal [place] RBC (Bld) [#/Vol] 4.30 106/ul Normal 4.20-5.40 [facility] Comment on above: Performed By: #### Lakshmi OLSON #### [facility] [address] [id number] Jemalmitch Chavezen SEG # 16.97 103/ul Critically high 1.40-6.50 [facility] Comment on above: Performed By: #### Lakshmi OLSON #### [facility] [address] [id number] Jemal [place] Segmented neutrophils/100 WBC (Bld) 84.0 % Critically high 43.0-75.0 [facility] Comment on above: Performed By: #### Lakshmi OLSON #### [facility] [address] [id number] Jemal [place] WBC (Bld) [#/Vol] 20.2 103/ul Critically high 4.0-11.0 [facility] Comment on above: Performed By: ###Juan OLSON #### [facility] [address] [place], [place] [id number] Jemalmitch Chavezen PROF 14(COMP METB)on 020 Albumin [Mass/Vol] 3.3 g/dL Critically low 3.5-5.0 Th e [facility] Comment on above: Performed By: #### C MP #### [facility] [address] [place], [place] [id number] Jemal [place] Albumin/Globulin [Mass ratio] 1.0 {ratio} Normal [facility] Comment on above: Performed By: #### C MP #### [facility] [address] [place], [place] [id number] Jemal [place] ALP [Catalytic activity/Vol] 105 U/L Normal 38-126 [facility] Comment on above: Performed By: #### C MP #### [facility] [address] [place] [address] Jemal [place] ALT [Catalytic activity/Vol] 33 U/L Normal 9-52 [facility] Comment on above: Performed By: #### C MP #### [facility] [address] [place], [place] [id number] Jemal [place] Anion gap [Moles/Vol] 11.5 mmol/L Normal [facility] Comment on above: Performed By: #### C MP #### [facility] [address] [place], [place] [id number] Jemal [place] AST [Catalytic activity/Vol] 35 U/L Normal 14-36 [facility] Comment on above: Performed By: #### C MP #### [facility] [address] [place], [place] [id number] Jemal [place] Bilirubin Ql (U) 0.4 mg/dL Normal 0.2-1.3 The [facility] Comment on above: Performed By: #### C MP #### [facility] [address] [place], [place] [id number] Jemal [place] Calcium [Mass/Vol] 8.5 mg/dL Normal 8.4-10.2 The [facility] Comment on above: Performed By: #### C MP #### [facility] [address] [place], [place] [id number] Jemal [place] Chloride [Moles/Vol] 102 mmol/L Normal 98-107 [facility] Comment on above: Performed By: #### C MP #### [facility] [address] [id number] Jemal [place] CO2 [Moles/Vol] 26.1 mmol/L Normal 22.0-30.0 [facility] Comment on above: Performed By: #### C MP #### [facility] [address] [place] [address] Jemal [place] Creatinine [Mass/Vol] 1.06 mg/dL Critically high 0.52-1.04 [facility] Comment on above: Performed By: #### C MP #### [facility] [address] [place] [address] Jemal [place] EGFR-AF FAROESE 60 mL/min/1.73m2 Normal >=60 [facility] Comment on above: Performed By: #### C MP #### [facility] [address] [address] Jemal [place] EGFR-NON AF FAROESE 50 mL/min/1.73m2 Critically low >=60 [facility] Comment on above: Performed By: #### C MP #### [facility] [address] [id number] Jemal [place] Globulin (S) [Mass/Vol] 3.4 g/dL Normal [facility] Comment on above: Performed By: #### C MP #### [facility] [address] [address] Jemal [place] Glucose [Mass/Vol] 165 mg/dL Critically high 74-106 [facility] Comment on above: Performed By: #### C MP #### [facility] [address] [id number] Jemal Oct[place] Potassium [Moles/Vol] 3.6 mmol/L Normal 3.4-5.0 [facility] Comment on above: Performed By: #### C MP #### [facility] [address] [address] Jemal [place] Protein [Mass/Vol] 6.7 g/dL Normal 6.1-8.2 [facility] Comment on above: Performed By: #### C MP #### [facility] [address] [place] [address] Jemal [place] Sodium [Moles/Vol] 136 mmol/L Critically low 137-145 Th e [facility] Comment on above: Performed By: #### C MP #### [facility] [address] [place], [place] [id number] Jemal [place] Urea nitrogen [Mass/Vol] 15.0 mg/dL Normal 7.0-17.0 [facility] Comment on above: Performed By: #### C MP #### [facility] [address] [place] [address] Jemal [place] Urea nitrogen/Creatinin e [Mass ratio] 14.2 mg/mg Normal [facility] Comment on above: Performed By: #### C MP #### [facility] [address] [place] [address] Jemal Octavia PROTIMEon 11-02-2019 INR Coag (PPP) [Relative time] 1.10 {INR} Normal [facility] Comment on above: Performed By: #### P T, PTT #### [facility] [address] [place], [place] [id number] Jemal Octavia PT Coag (PPP) [Time] SEE BELOW Normal [facility] Comment on above: Result Comment: ANNETTE RED INR: 2.0 - 3.0 CONDITIONS NOT LISTED BELOW 2.5 - 3.5 FOR PROSTHETIC HEART VALVE REPLACEMENT 2.5 - 3.5 RECURRENT THROMBOSIS Performed By: #### P T, PTT #### [facility] [address] [place], [place] [id number] Jemal Octavia PT Coag (PPP) [Time] PLEASE NOTE: NORMAL RANGE CHANGE 02-09-2014 DUE TO REAGENT LOT CHANGE Normal [facility] Comment on above: Performed By: #### P T, PTT #### [facility] [address] [place], [place] [id number] Jemal Octavia PT Coag (PPP) [Time] 11.4 s Normal 9.0-11.6 [facility] Comment on above: Performed By: #### P T, PTT #### [facility] [address] [place], [place] [address] Jemal Dudley PTTon 11-02-2019 aPTT Coag (Bld) [Time] 31.7 s Normal 22.3-36.2 [facility] Comment on above: Performed By: #### P T, PTT #### [facility] [address] [place], [place] [address] Jemal Dudley aPTT Coag (Bld) [Time] PLEASE NOTE: NORMAL RANGE CHANGE 04-18-2015 DUE TO REAGENT LOT CHANGE Normal [facility] Comment on above: Performed By: #### P T, PTT #### [facility] [address] [place], [place] [address] Jemal Dudley Vital Signs Date Time Vital Sign Value Performing Clinician Facility 03-01-2024 14:24-0400 Body height 170.2 cm [employer] Work Phone: [facility] [employer] 03-01-2024 14:24-0400 Body mass index (BMI) [Ratio] 20.88 kg/m2 JIT [facility]ire [facility] 03-01-2024 14:24-0400 Body temperature 97.5 [degF] TimothyTouristWay [facility] 03-01-2024 14:24-0400 Body weight 60.46 kg JIT Solaire DO [facility] 03-01-2024 14:24-0400 Diastolic blood pressure 58 mm[Hg] JIT Solaire DO [facility] 03-01-2024 14:24-0400 Heart rate 63 /min JIT Solaire DO [facility] 03-01-2024 14:24-0400 SaO2% (BldA) [Mass fraction] 97 % JIT Solaire DO [facility] 03-01-2024 14:24-0400 Systolic blood pressure 120 mm[Hg] Timothy Washington DO Work Phone: [facility] 07-28-2023 14:11-0500 Body height 172.7 cm Pfo 6 [facility] 07-28-2023 14:11-0500 Body mass index (BMI) [Ratio] 18.4 kg/m2 Pfo 6 [facility] 07-28-2023 14:11-0500 Body temperature 97.59 [degF] Pfo 6 [facility] 07-28-2023 14:11-0500 Body weight 54.88 kg Pfo 6 [facility] 07-28-2023 14:11-0500 Diastolic blood pressure 82 mm[Hg] Pfo 6 [facility] 07-28-2023 14:11-0500 Heart rate 78 /min Pfo 6 [facility] 07-28-2023 14:11-0500 Respiratory rate 15 /min Pfo 6 [facility] 07-28-2023 14:11-0500 SaO2% (BldA) [Mass fraction] 100 % Pfo 6 [facility] 07-28-2023 14:11-0500 Systolic blood pressure 141 mm[Hg] Pfo 6 [facility] 02-20-2020 10:33-0400 BMI (Body Mass Index) 17.2 kg/m2 [facility] 02-20-2020 10:33-0400 Body weight 51.25 kg [facility] 02-20-2020 10:33-0400 Height 172.72 cm [facility] 02-20-2020 10:20-0400 Body Temperature 97.7 [degF] [facility] 02-20-2020 10:20-0400 BP Diastolic 79 mm[Hg] [facility] 02-20-2020 10:20-0400 BP Systolic 121 mm[Hg] [facility] 02-20-2020 10:20-0400 Pulse (Heart Rate) 92 /min [facility] 02-20-2020 10:20-0400 Respiratory Rate 18 /min [facility] Encounters Encounter Date Encounter Type Care Provider Facility Start: 03-01-2024 End: 03-01-2024 Office outpatient visit 15 minutes Timothy Washington DO Work Phone: [facility] Comment on above: Urinary incontinence , unspecified type (Primary Dx); Hypertensive kidney disease with stage 3a chronic kidney disease ([facility]) Start: 03-01-2024 End: 03-01-2024 ambulatory [facility] Start: 12-10-2023 End: 12-10-2023 ambulatory [facility] Start: 12-10-2023 End: 12-10-2023 ambulatory [facility] Start: 07-28-2023 End: 07-28-2023 ambulatory [facility] Start: 07-28-2023 End: 07-28-2023 ambulatory [facility] In[facility] 6 Chapis Guerrier [facility] Comment on above: [...] Start: 02-20-2020 End: 02-20-2020 Discharged Recurring Timothy [facility] Start: 01-29-2020 End: [...] Adult BMI Screening Adult BMI Screen ing [facility] Start: 03-01-2025 Depression Screening Depression Scre ening [facility] Start: 03-01-2025 Fall Risk Screening Fall Risk Screen ing [facility] Start: 03-01-2025 Tobacco Screening Tobacco Screening [facility] Start: 09-08-2024 End: 09-08-2024 Patient encounter procedure 09/08/2024 1:00 PM EDT Office Visit [facility] Internal Medicine - Family Medicine [address] [place] [address] Timothy Washington DO [address], [place] [address] [facility] Internal Medicine - Family Medicine Start: 07-31-2024 DTaP,Tdap and Td Vaccines (2 - Td or Tdap) DTaP,Tdap and Td Vaccines (2 - Td or Tdap) [facility] Start: 05-09-2024 End: 05-09-2024 Patient encounter procedure 05/09/2024 9:50 AM EST Office Visit [facility] Internal Medicine - Family Medicine [address] [place] [address] Timothy Washington DO [address], [place] [address] [facility] Internal Medicine - Family Medicine Start: 05-04-2024 Adult BMI Screening Adult BMI Screen ing [facility] Start: 05-04-2024 Depression Screening Depression Scre ening [facility] Start: 05-04-2024 Fall Risk Screening Fall Risk Screen ing [facility] Start: 05-04-2024 Tobacco Screening Tobacco Screening [facility] Start: 01-24-2024 COVID-19 Vaccine ( season) COVID-19 Vaccine () [facility] Start: 01-24-2024 Influenza vaccination Influenza Vacc ine [facility] Start: 07-28-2023 End: 07-28-2023 ambulatory 07/28/2023 2:30 PM EST Infusion [facility] [address] [place] [phone] [facility] Start: 01-23-2023 COVID-19 Vaccine ( season) COVID-19 Vaccine () [facility] Start: 01-23-2023 Influenza vaccination Influenza Vacc ine [facility] Start: 02-10-1953 Adult BMI Follow Up Plan Adult BMI Follow Up Plan [facility] Start: 1935 Medicare Annual Well ness Visit Medicare Annual Wellness Visit [facility] Immunizations Immunization Date Immunization Notes Care Provider Fa cility 06-28-2020 COVID-19, mRNA, LNP- S, PF, 30mcg/0.3mL Dose Not Ref Prov [facility] 06-27-2020 COVID-19, mRNA, LNP- S, PF, 30mcg/0.3mL Dose Not Ref Prov [facility] 02-16-2020 influenza, injectabl e, quadrivalent, contains preservative Not Ref Prov [facility] 02-16-2020 influenza virus vacc ine, unspecified formulation Not Ref Prov [facility] 02-15-2019 influenza, high dose seasonal, preservative-free Not Ref Prov [facility] 12-13-2018 zoster vaccine recombinant Not Ref P rov [facility] 06-11-2018 zoster vaccine recombinant Not Ref P rov [facility] 06-10-2018 zoster vaccine recombinant Not Ref P [facility] 02-15-2018 influenza virus vacc ine, unspecified formulation Not Ref [facility] 02-15-2018 Seasonal trivalent influenza vaccine, adjuvanted, preservative free Not Ref [facility] 02-23-2017 influenza, seasonal, injectable Not Ref [facility] 02-25-2016 Seasonal trivalent influenza vaccine, adjuvanted, preservative free Not Ref [facility] 02-23-2016 influenza, high dose seasonal, preservative-free Not Ref [facility] 03-07-2015 influenza, injectabl e, quadrivalent, preservative free Not Ref [facility] 02-26-2015 influenza, injectabl e, quadrivalent, contains preservative Not Ref [facility] 02-22-2015 influenza virus vacc ine, unspecified formulation Not Ref [facility] 07-31-2014 tetanus toxoid, redu ivory diphtheria toxoid, and acellular pertussis vaccine, adsorbed Not Ref [facility] 04-28-2014 influenza, seasonal, injectable Not Ref [facility] 03-13-2014 influenza, high dose seasonal, preservative-free Not Ref [facility] 03-08-2014 zoster vaccine, live Not Ref [facility] 09-01-2013 pneumococcal conjuga te vaccine, 13 valent Not Ref [facility] 09-01-2013 pneumococcal polysaccharide vaccine, 23 valent Not Ref [facility] 03-09-2013 influenza, seasonal, injectable Not Ref [facility] 09-24-2011 zoster vaccine, live Not Ref [facility] 09-18-2011 zoster vaccine, live Not Ref [facility] 05-15-2009 novel influenza-H1N1 -09, preservative-free, injectable Not Ref [facility] 03-17-2001 pneumococcal polysaccharide vaccine, 23 valent Not Ref [facility] Payers Date Payer Category Payer Private Health Insurance [id number] 2001 Medicare MEDICARE MEDICAR E RAILROAD [id number] 2001-Present [phone] [address] [place] [address] [id number] 1959 Medicare [id number] 1959 Private Health Insurance [id number] 1958 Self-pay [id number] 1935 Unknown [id number] 1936 Unknown [id number] 1936 Unknown [id number] 1936 Unknown [id number] 1936 Unknown [id number] 1936 Unknown [id number] 1936 Unknown [id number] Medicare Self Pay [id number] Unknown [id number] Social History Date Type Detail Facility Start: 04-01-2018 End: 02-20-2020 Tobacco smoking status NHIS Ex-smoker (finding) [facility] Start: 1935 Sex Assigned At Female [facility] History of tobacco use Current smoker [facility] Start: 04-01-2018 Tobacco use and exposure Smokeless tobacco non-user [facility] Start: 07-14-2023 End: 03-01-2024 Alcohol intake Current drinker of alcohol (finding) [facility] Start: 10-13-2022 End: 03-01-2024 History of Social function [facility] Start: 10-13-2022 End: 03-01-2024 Social connection and isolation panel [facility] Do you belong to any clubs or organizations such as anglican groups, unions, fraternal or athletic groups, or school groups? No [facility] Are you now , , , , never or living with a partner? [facility] How often to you hav e a drink containing alcohol? Never [facility] How many standard dr inks containing alcohol do you have on a typical day? Patient does not drink [facility] Do you feel stress - tense, restless, nervous, or anxious, or unable to sleep at night because your mind is troubled all the time - these days [OSQ] Not at all [facility] Start: 11-03-2019 Alcohol Comment occassionally [facility] Start: 1935 Sex Assigned At Not on file [facility] Medical Equipment Procedure Code Equipment Code Equipment Origin al Text Equipment Identifier Dates [facility] Hvr 30% Baso4 Pmma - [id number] - [id number] Start: 11-07-2019 Goals Date Patient Goal [...] presents today with her daughter for a [id number] visit to document her need for adult [...] Exam Vitals reviewed. Exam conducted with a hatchery helper present (Ariella). Constitutional: General: She is not [...] disease with stage 3a chronic kidney disease ([facility]) Blood pressure at goal. We will recheck labs in 6 months. [facility] History of Present illness Narrative Patient here for reclast infusion. Patient denies any issues or complaints today. She tolerated last years dose well. She denies dental procedures, labs WNL. IV initiated per policy and tolerated well. Reclast administered without complications. NS to flush line. IV D/C'd. Patient accompanied by daughter in stable condition. [facility] 06-15-2020 Note Patient Outreach (CO OCC3) STEFANICHHAYA Campbell ([id number]) 1935 F Date Time Provider Department 06/15/20 NEPTALI VANN During your visit today, we recorded the following information about you: Allergies As of Date: 06/15/2020 Noted Allergy Reaction CLINDAMYCIN 06/08/2019 2 - Rash LATEX 08/04/2012 2 - Rash SULFA (SULFONAMIDE ANTIBIOTICS) 08/04/2012 5 - Intolerance Date Reviewed: 06/08/2019 Reviewed by: La Russo - Fully Assessed Order(s):SARS-COVID VACCINE 1ST DOSE APPT [[id number]] Order #: [id number] FUTURE Prescriptions as of 06/15/2020 Sig: OCUVITE [...] Encounter Status:Closed by ELOISE SLATER on 06/18/20 [facility] Evaluation note Diagnosis Age-related osteoporosis without current pathological fracture- Primary [facility] this [facility] Diagnosis Moderate persistent asthma, unspecified whether complicated- Primary documented in this encounter [facility] Diagnosis Moderate persistent asthma, unspecified whether complicated- Primary documented in this encounter [facility]* Diagnosis Age-related osteoporosis without current pathological fracture- Primary documented in this encounter [facility]* Diagnosis Urinary incontinence, unspecified type- Primary Hypertensive kidney disease with stage 3a chronic kidney disease ([facility]) documented in this encounter [facility] on filedocumented in this encounter [facility] on filedocumented in this encounter [facility]Not on filedocumented in this encounter [facility] on filedocumented in this encounter [facility] Advance Directives Advance Directive Response Recorded Date/ Time Advance Directives No January 9:05am Documents on File Type Date Recorded 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 Living Will 07/08/2023 3:40 PM LIVING BETTY L 07/08/2023 Living Will 11/16/2019 1:04 PM Durable Power of Retirement Manager 11/16/2019 1:04 PM Latest Code Status on [...] DATE CREATED AUTHOR AUTHOR'S ORGANIZ ATION 06/01/2021 [facility] DATE CREATED AUTHOR AUTHOR'S ORGANIZ ATION 07/29/2023 [facility] DATE CREATED AUTHOR AUTHOR'S ORGANIZ ATION 12/14/2023 [facility] DATE CREATED AUTHOR AUTHOR'S ORGANIZ ATION 03/03/2024 [facility] Ambulatory [facility] Care Teams (unrecognized sec tion and content) Shop Helper Relationship Specialty Start Date End Date Timothy Washington DO [address] [place] [address] PCP - General Family Medicine 02/12/17 Shop Helper Relationship Specialty Start Date End Date Timothy Washington DO [address] [place] [address] PCP - General Family Medicine 02/12/17 Shop Helper Relationship Specialty Start Date End Date Timothy Washington DO [address] [place] [address] PCP - General Family Medicine 02/12/17 Shop Helper Relationship Specialty Start Date End Date StephaniagiovanniTimothy henderson [address], [place] [address] PCP - General Family Medicine 02/12/17 Shop Helper Relationship Specialty Start Date End Date Timothy Washington DO [address], [place] [address] PCP - General Family Medicine 02/12/17 Shop Helper Relationship Specialty Start Date End Date StephaniagiovanniTimothy henderson DO [address] [place] [address] PCP - General Family Medicine 02/12/17 Reason for Visit (unrecogniz ed section and content) Reason Comments Outpatient Infusion reclast Specialty Diagnoses / Procedures Referred By Contac t Referred To Contact Diagnoses Age-related osteoporosis without current pathological fracture Procedures MD ZOLEDRONIC ACID 1MG Timothy Washington DO [address], [place] [address] Pfo Med Onc [facility] [place] [address] Referral ID Status Reason Start Date Expiration Date V isits Requested Visits Authorized [id number] Authorized 07/18/2023 07/17/2024 1 1 Reason Comments [...] BE BASED ON THE PRIMARY CLINICAL RECORDS. [facility]. provides no warranty or guarantee of the accuracy or completeness of information in this document.
[2024-06-21] MEDS: ENSURE ORIGINAL 237 ML BOTTLE PO ×2 (08:45→22:09)
[2024-06-21] MEDS: AMLODIPINE BESYLATE 5 MG TABLET PO (08:45)
[2024-06-21] MEDS: CIPROFLOXACIN IN 5 % DEXTROSE 400 MG/200 ML PREMIX 125 MG IV (08:45)
[2024-06-21] MEDS: SERTRALINE HCL 50 MG TABLET 12.5 MG PO (08:45)
--- NOTE | 2024-06-21 09:07 | SWNOTE1 ---
SW consult stated for food nutrition. Pt lives at [facility] and is now going skilled at nursing facility. They will monitor her intake at facility.
--- NOTE | 2024-06-21 09:22 | P.PN_ITS ---
Progress Note: Subjective Subjective Interval history: Complaints this morning, sleeping soundly but awakens easily Exam Constitutional Vital Signs, click to edit/add: Last Vital Signs Temp 98 F 06/21/24 05:43 Pulse 87 06/21/24 05:43 Resp 18 06/21/24 05:43 BP 152/81 H 06/21/24 05:43 Pulse Ox 95 06/20/24 21:58 O2 Del Method Room Air 06/20/24 21:58 O2 Flow Rate 18 06/20/24 09:12 Documenting provider has reviewed patient's vital signs: yes Common normals: no apparent distress Chest Common normals: inspection of chest normal and palpation of chest normal Respiratory Common normals: normal respiratory effort, no retractions, no use of accessory muscles and clear to auscultation bilaterally Cardio Common normals: regular rhythm and no murmurs; irregular rate Rate: tachycardic GI Common normals: Normal to inspection, nondistended, normoactive bowel sounds present and soft to palpation Progress Note: Objective Labs Labs: Short CBC 06/21/24 Range/Units 05:48 WBC 16.9 H (4.0-11.0) 10^3/uL Hgb 9.1 L (12.0-16.0) g/dL Hct 29.9 L (36.0-48.0) % Plt Count 253 (150-450) 10^3/uL BMP 06/21/24 05:48 Sodium 141 Potassium 3.8 Chloride 108 H Carbon Dioxide 26.0 BUN 22.0 H Creatinine 1.05 H Glucose 118 H Calcium 8.0 L Liver Function 06/21/24 Range/Units 05:48 Total Bilirubin 0.3 (0.2-1.0) mg/dL AST 85 H (15-37) U/L ALT 41 (14-59) U/L Alkaline Phosphatase 151 H (46-116) U/L Albumin 1.8 L (3.4-5.0) g/dL Progress Note: A&P Assessment and Plan (1) Closed fracture of right inferior pubic ramus: Qualifiers: Encounter type: subsequent encounter Fracture healing: with routine healing Qualified Code(s): S32.591D - Other specified fracture of right pubis, subsequent encounter for fracture with routine healing (2) Closed fracture of right superior pubic ramus: Qualifiers: Encounter type: subsequent encounter Fracture healing: with routine healing Qualified Code(s): S32.511D - Fracture of superior rim of right pubis, subsequent encounter for fracture with routine healing (3) Acute UTI: (4) Leukocytosis: Qualifiers: Leukocytosis type: leukemoid reaction Qualified Code(s): D72.823 - Leukemoid reaction (5) HTN (hypertension): Qualifiers: Hypertension type: primary hypertension Qualified Code(s): I10 - Essential (primary) hypertension (6) Dementia: Qualifiers: Alzheimer's disease onset: late onset Dementia behavioral or psychological symptom: with anxiety Dementia severity: severe Dementia type: Alzheimer's Qualified Code(s): G30.1 - Alzheimer's disease with late onset; 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, severe, with anxiety (7) Severe protein-calorie malnutrition: Plan Admission findings: Tachycardia, leukocytosis, hypernatremia, hypokalemia, acute elevation in creatinine, positive urinalysis consistent with acute UTI causing sepsis (tachycardia, leukocytosis, known infectious source of urine, lactate not obtained on admission that may have resulted in severe sepsis, patient will be unable to tolerate aggressive fluid resuscitation anyway) Sepsis-as outlined above secondary to acute UTI-culture pending, white blood cell count finally improving, still significantly elevated at 16,000, added antibiotics yesterday we will maintain current treatment plan, cultures pending Closed fracture of right inferior pubic ramus: Physical therapy to work with patient today likely rehab tomorrow or day after if maintains current treatment and improvement as outlined above more than likely 2 days Closed fracture of right superior pubic ramus: PT to work with patient today HTN (hypertension): Stable, continue with current medications Depression-continue with current medications Dementia: Deteriorated secondary to the acute UTI, sepsis and change in environment seems pretty stable with her alertness today Severe protein-calorie malnutrition: Diet supplementation Iron deficiency anemia-improved today Hyponatremia on admission-resolved Hypokalemia on admission-resolved Elevated liver function tests-this is likely secondary to the sepsis as outlined above, slightly elevated today, continue to monitor Admission status: Patient placed in initial observation time period, white blood cell count has remained persistently elevated and is currently still over 20,000, failing the initial timeframe of observation, with significantly elevated white blood cell count, sepsis persisting, patient will be changed to inpatient status as medically necessary treatment will span more than 2 midnights Urinary Catheter Management Urinary Catheter Management Straight: Cath placed during this visit: yes Urethral indwelling: No Insertion date: 06/18/24 Insertion time: 12:12
--- NOTE | 2024-06-21 09:38 | CM.NOTE ---
Rounds made with Dr. Lopes, no discharge today. Pt will need to discharge skilled when medically stable.
--- NOTE | 2024-06-21 09:51 | REH.PTDLY ---
Physical Therapy Daily Note PT Daily Note/Assess Start: 06/21/24 09:07 Freq: Status: Active Protocol: Document 06/21/24 08:45 PONCHOSARAH (Rec: 06/21/24 09:51 KSTEINLE [id number]) Physical Therapy Daily Note/Assessment Time In 08:20 Time Out 08:45 Subjective Pt in bed upon arrival, agreeable to therapy this morning. Therapeutic Exercise 8 Minutes (minutes) Therapeutic Exercise 1 Units Therapeutic Exercise Instructed in AA supine exs with B LE 8-10x ea for Treatment improved strength with several verbal cues needed. Pt has increased discomfort in R LE compared to L LE at foot and hip/LB resulting in smaller ROM. Therapeutic Activity 15 Minutes (minutes) Therapeutic Activity 1 Units Therapeutic Activity Several cues for moving feet to side of bed. Pt needs Comments Max A and performs at slow pace to try and avoid sharp pains. Max A x1 for supine to sit transfer to EOB and needing to use draw pad under pt to pull forward so feet are touching floor. Sit to stand transfer Max A x1 with pt being unable to clear bottom off of bed. With Max A x2 pt is able to stand upright holding onto RW. Cues for pt to side step to head of bed, pt takes about 7 small steps with encouragement. Legs begin to buckle and pt returns to sitting on bed. Pt declines standing again to get into chair. Max A x2 with sit to supine transfers. Total Therapy 23 Minutes Total Physical 2 Therapy Units Daily Note Summary Pt improved from yesterday as she is able to take small steps with longer standing tolerance, but pt still requires Max A x2 and needs encouragement. Pt complains of pain across LB and R foot. Pt will need SNF stay to improve functional independence as pt is unable to take care of herself at this time.
[2024-06-21 10:00] VITALS: O2SAT 96
--- NOTE | 2024-06-21 12:26 | OT.DAILY ---
Occupational Therapy Daily Note OT Inpatient Daily Visit Note Start: 06/20/24 12:04 Freq: Status: Active Protocol: Document 06/21/24 12:12 [id number] (Rec: 06/21/24 12:26 [id number]) OT Visit Details Time In/Time Out Time In 10:00 Time Out 10:22 OT Treatment Plan Subjective Subjective Daughter present during visit. Pt confused to time and date. Pt able to confirm birthday, unable to identify age. Reports pain in R foot, tender to touch. Agreeable to tasks iwth prompting and motivation. Objective Objective Pt sitting up in bed, not agreeable to transfer to EOB. Set up of supplies Pt completed hygiene to face and frontal core of scalp. Requires assist to reach outside JOSE to posterior aspect of head/neck. Pt given comb to complete hair care, tolerated 15-20sec of brushing and reports fatigue with UEs. Pt set up with toothbrush and mouthwash. Completed oral hygiene appropriate, brushing anterior and posterior inter-oral cavity. Good amount of mouthwash in oral cavity to continue with sequence. Pt reports feeling better and alert after self-care tasks. Assessment Assessment Pt agreeable and cooperative with motivation from daughter. Pt was easily fatigued and would gesture for help. Was able to engage in conversation with a normal thought process. Continue OT POC. 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
[2024-06-21 14:20] VITALS: BP 138/80; PULSE 84; TEMP 36.7; O2SAT 93
[2024-06-21] MEDS: ENOXAPARIN SODIUM 30 MG/0.3 ML SYRINGE SUBQ (17:21)
[2024-06-21 20:00] VITALS: O2SAT 94
[2024-06-21 20:55] VITALS: BP 137/71; PULSE 87; TEMP 36.8; O2SAT 91
[2024-06-21] MEDS: CIPROFLOXACIN IN 5 % DEXTROSE 400 MG/200 ML PREMIX 200 MG IV (22:08)
[2024-06-21] MEDS: PROSTAT 15 GM PROTEIN/100 CAL 30 ML LIQUID PACKET PO (22:08)
[2024-06-21] MEDS: MIRTAZAPINE 15 MG TABLET PO (22:09)
[2024-06-21] MEDS: ATORVASTATIN CALCIUM 10 MG TABLET 5 MG PO (22:09)
[2024-06-21] MEDS: DONEPEZIL HCL 10 MG TABLET PO (22:09)
[2024-06-21] MEDS: CEFTRIAXONE 1,000 MG in 0.9 % SODIUM CHLORIDE 50 ML 100 MG IV (23:05)
[2024-06-21 23:19] VITALS: BP 132/82; PULSE 92; TEMP 36.7; O2SAT 92
[2024-06-22] VITALS (8 sets, daily range): BP systolic 127–153; BP diastolic 72–91; PULSE 69–89; TEMP 36.5–37.1; O2SAT 91–94
[2024-06-22 05:56] LABS: Basophils Percent Auto 0.2 % (0.2-2.0); Eosinophils Absolute Auto 0.1 10^3/uL (0.0-0.7); Eosinophils Percent Auto 0.4 % (0.9-7.0); Hematocrit 29.6 % (36.0-48.0); Hemoglobin 9.2 g/dL (12.0-16.0); Immature Granulocytes Abs Auto 0.28 10^3/uL (0.00-0.03); Immature Granulocytes Pct Auto 1.5 % (0.0-0.5); Lymphocytes Absolute Auto 1.5 10^3/uL (1.2-3.8); Lymphocytes Percent Auto 7.7 % (20.5-60.0); Mean Corpuscular HGB Conc 31.1 g/dL (29.9-35.2); Mean Corpuscular Hemoglobin 22.1 pg (26.7-34.0); Mean Corpuscular Volume 71.2 fL (81.0-99.0); Mean Platelet Volume 10.5 fL (9.5-13.5); Monocytes Absolute Auto 1.8 10^3/uL (0.3-0.8); Monocytes Percent Auto 9.3 % (1.7-12.0); Neutrophils Absolute Auto 15.4 10^3/uL (1.4-6.5); Neutrophils Percent Auto 80.9 % (43.0-75.0); Platelet Count 444 10^3/uL (150-450); Red Blood Count 4.16 10^6/uL (4.20-5.40); Red Cell Distribution Width 26.8 % (11.0-15.0)
[2024-06-22 06:15] LABS: Alanine Aminotransferase 58 U/L (14-59); Albumin Globulin Ratio 0.4; Albumin Level 1.7 g/dL (3.4-5.0); Alkaline Phosphatase 158 U/L (46-116); Anion Gap 11.9; Aspartate Amino Transferase 113 U/L (15-37); BUN Creatinine Ratio 19.6; Bilirubin Total 0.4 mg/dL (0.2-1.0); Carbon Dioxide 26.7 mmol/L (21.0-32.0); Chloride 107 mmol/L (98-107); Estimated GFR (African America >60 (>=60 mL/min/1.73m^2); Estimated GFR (Non-African Ame 58 (>=60 mL/min/1.73m^2); Globulin 3.8 g/dL; Glucose 133 mg/dL (74-106); Potassium 3.6 mmol/L (3.5-5.1); Sodium 142 mmol/L (136-145); Total Protein 5.5 g/dL (6.4-8.2)
[2024-06-22] MEDS: AMLODIPINE BESYLATE 5 MG TABLET PO (08:38)
[2024-06-22] MEDS: SERTRALINE HCL 50 MG TABLET 12.5 MG PO (08:38)
[2024-06-22] MEDS: 0.9 % SODIUM CHLORIDE 250 ML 10 ML IV (08:38)
[2024-06-22] MEDS: CIPROFLOXACIN IN 5 % DEXTROSE 400 MG/200 ML PREMIX 125 MG IV (08:38)
[2024-06-22] MEDS: ENSURE ORIGINAL 237 ML BOTTLE PO (08:39)
[2024-06-22] MEDS: ACETAMINOPHEN 325 MG TABLET 650 MG PO (08:39)
--- NOTE | 2024-06-22 08:47 | CM.NOTE ---
Rounds made with Dr. Lopes. Nursing notes redness and coldness to right foot. Podiatry to be Consulted.
--- NOTE | 2024-06-22 09:16 | XR_ITS ---
The [address] [address] Patient Name: BILL KO MRN: [id number] date: 1935 Sex: F Assigned Patient Location: [place] Current Patient Location: [place] Accession/Order Number: [id number] Exam Date: 06/22/2024 09:38 Report Date: 06/22/2024 10:05 At the request of: NESTOR REYES Procedure: XR foot RT min 3V PROCEDURE: XR foot RT min 3V HISTORY: foot bruising COMPARISON: XR foot right 06/18/2024 FINDINGS: BONES:Osteopenia and mild degenerative changes. No appreciable fracture or dislocation. Small calcaneal plantar spur. SOFT TISSUES:No visible soft tissue swelling. EFFUSION:None visible. OTHER: Atherosclerotic disease. XR/XR foot RT min 3V IMPRESSION: 1. No appreciable fracture or acute bone abnormality. Electronically authenticated by: CACHORRO MEDRANO Date: 06/22/2024 10:05
--- NOTE | 2024-06-22 09:17 | P.PN_ITS ---
Progress Note: Subjective Subjective Interval history: No complaints this morning, states eating well Exam Constitutional Vital Signs, click to edit/add: Last Vital Signs Temp 98.1 F 06/22/24 08:09 Pulse 89 06/22/24 08:09 Resp 20 06/22/24 08:09 BP 153/91 H 06/22/24 08:09 Pulse Ox 94 L 06/22/24 08:09 O2 Del Method Room Air 06/22/24 05:17 O2 Flow Rate 18 06/20/24 09:12 Documenting provider has reviewed patient's vital signs: yes Common normals: no apparent distress Chest Common normals: inspection of chest normal and palpation of chest normal Respiratory Common normals: normal respiratory effort, no retractions, no use of accessory muscles and clear to auscultation bilaterally Cardio Common normals: regular rhythm and no murmurs; irregular rate Rate: tachycardic GI Common normals: Normal to inspection, nondistended, normoactive bowel sounds present, soft to palpation and non-tender Extremity Common normals: abnormal to inspection (Right foot bruising) Progress Note: Objective Labs Labs: Short CBC 06/22/24 Range/Units 05:25 WBC 19.0 H (4.0-11.0) 10^3/uL Hgb 9.2 L (12.0-16.0) g/dL Hct 29.6 L (36.0-48.0) % Plt Count 444 (150-450) 10^3/uL BMP 06/22/24 05:25 Sodium 142 Potassium 3.6 Chloride 107 Carbon Dioxide 26.7 BUN 18.0 Creatinine 0.92 Glucose 133 H Calcium 8.0 L Liver Function 06/22/24 Range/Units 05:25 Total Bilirubin 0.4 (0.2-1.0) mg/dL AST 113 H (15-37) U/L ALT 58 (14-59) U/L Alkaline Phosphatase 158 H (46-116) U/L Albumin 1.7 L (3.4-5.0) g/dL Progress Note: A&P Assessment and Plan (1) Closed fracture of right inferior pubic ramus: Qualifiers: Encounter type: subsequent encounter Fracture healing: with routine healing Qualified Code(s): S32.591D - Other specified fracture of right pubis, subsequent encounter for fracture with routine healing (2) Closed fracture of right superior pubic ramus: Qualifiers: Encounter type: subsequent encounter Fracture healing: with routine healing Qualified Code(s): S32.511D - Fracture of superior rim of right pubis, subsequent encounter for fracture with routine healing (3) Acute UTI: (4) Leukocytosis: Qualifiers: Leukocytosis type: leukemoid reaction Qualified Code(s): D72.823 - Leukemoid reaction (5) HTN (hypertension): Qualifiers: Hypertension type: primary hypertension Qualified Code(s): I10 - Essential (primary) hypertension (6) Dementia: Qualifiers: Alzheimer's disease onset: late onset Dementia behavioral or psychological symptom: with anxiety Dementia severity: severe Dementia type: Alzheimer's Qualified Code(s): G30.1 - Alzheimer's disease with late onset; 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, severe, with anxiety (7) Severe protein-calorie malnutrition: Plan Admission findings: Tachycardia, leukocytosis, hypernatremia, hypokalemia, acute elevation in creatinine, positive urinalysis consistent with acute UTI causing sepsis (tachycardia, leukocytosis, known infectious source of urine, lactate not obtained on admission that may have resulted in severe sepsis, patient will be unable to tolerate aggressive fluid resuscitation anyway) Sepsis-as outlined above secondary to acute UTI-culture pending still, check on culture results later today, white blood cell count is back elevated today Closed fracture of right inferior pubic ramus: Physical therapy to work with patient today likely rehab tomorrow or day after if maintains current treatment and improvement as outlined above more than likely 2 days Closed fracture of right superior pubic ramus: PT to work with patient today Right foot bruising-overall repeat x-ray, consult to podiatry HTN (hypertension): Stable, continue with current medications Depression-continue with current medications Dementia: Deteriorated secondary to the acute UTI, sepsis and change in environment seems pretty stable with her alertness today Severe protein-calorie malnutrition: Diet supplementation Iron deficiency anemia-improved today Hyponatremia on admission-resolved Hypokalemia on admission-resolved Elevated liver function tests-this is likely secondary to the sepsis as outlined above, slightly elevated again today, continue to monitor Admission status: Patient placed in initial observation time period, white blood cell count has remained persistently elevated and is currently still over 20,000, failing the initial timeframe of observation, with significantly elevated white blood cell count, sepsis persisting, patient will be changed to inpatient status as medically necessary treatment will span more than 2 midnights Urinary Catheter Management Urinary Catheter Management Straight: Cath placed during this visit: yes Urethral indwelling: No Insertion date: 06/18/24 Insertion time: 12:12
--- NOTE | 2024-06-22 10:54 | SWNOTE1 ---
Pt not discharging today, possibly tomorrow. SW sent updates to [facility].
--- NOTE | 2024-06-22 11:35 | REH.PTDLY ---
Physical Therapy Daily Note PT Daily Note/Assess Start: 06/21/24 09:07 Freq: Status: Active Protocol: Document 06/22/24 11:22 MIKEY (Rec: 06/22/24 11:35 MIKEY [id number]) Physical Therapy Daily Note/Assessment Time In 11:00 Time Out 11:15 Subjective Nursing reports pt has podiatry consult for R foot. R foot is cold to touch and has bruised appearance with 3 different areas of scabbed wounds (great toe, dorsal aspect foot, and side). Repeated x-ray on foot this morning and is negative for any broken bones or fractures per nursing. Therapeutic Exercise 8 Minutes (minutes) Therapeutic Exercise 1 Units Therapeutic Exercise Instructed in seated B LE LAQ and hip abd step outs 10x Treatment ea, needs AA with LAQ. Pt requires Min A with seated balance when pt is performing marches with AA needed to perform small range. Supine exs performed 10x AA with heels slides, hip abd slides and SLR. Therapeutic Activity 5 Minutes (minutes) Therapeutic Activity 0 Units Therapeutic Activity Max A x2 with supine to sit transfer to EOB and again Comments when getting pt back into bed. Pt requires assist to scoot pt up in bed Max A x2. Did not perform standing transfer or attempted gait at this time, prefer to wait for [facility] consult due to the appearance of pt's R foot today. Total Therapy 13 Minutes Total Physical 1 Therapy Units Daily Note Summary Pt requires heavy assist with transfers in and out of bed. Cues with exs for proper form, needing demo and AA at times. Pt will need rehab at [place] to improve strength and functional mobility
--- NOTE | 2024-06-22 18:28 | US_ITS ---
The [address] [address] Patient Name: BILL KO MRN: [id number] date: 1935 Sex: F Assigned Patient Location: [place] Current Patient Location: [place] Accession/Order Number: [id number] Exam Date: 06/22/2024 19:49 Report Date: 06/22/2024 21:34 At the request of: DALJIT CASTILLO Procedure: US arterial duplex LE BI EXAM: US arterial duplex LE BI HISTORY: PAD with ulcers COMPARISON: None. TECHNIQUE: Grayscale, color Doppler, spectral Doppler waveform analysis was used to evaluate the bilateral lower extremities. FINDINGS: Right lower extremity Plaque was noted throughout. Mild velocity elevation was seen within the right popliteal artery suggesting a possible at least 50% stenosis. Below this monophasic waveforms were then seen. Left lower extremity Plaque was seen throughout. Elevated velocity was seen within the mid anterior tibial artery suggesting a stenosis. Plaque was noted. US/US arterial duplex LE BI IMPRESSION: 1. 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 2. Probable significant stenosis within the midportion of the left anterior tibial artery. 3. Plaque noted throughout. Electronically authenticated by: Huyen CULLEN Date: 06/22/2024 21:34
[2024-06-22] MEDS: ENOXAPARIN SODIUM 30 MG/0.3 ML SYRINGE SUBQ (18:29)
--- NOTE | 2024-06-22 18:31 | P.CN_ITS ---
Consult Note: [facility] Data of Consult Consult date: 06/22/24 Requesting Physician: Ba Lopes MD Primary Care Provider: ASHLEY PRECIADO Consult Narrative Reason for consult: Right foot injury Narrative: Patient is an 89-year-old female who resides in assisted living and had a fall on Thursday06/18/24 which resulted in pubic fracture. Family present during examination relates that patient has been having right foot pain since a fall as well as swelling, discoloration and ulceration on dorsal foot and lateral heel. Patient is fairly sedentary but has no history of rest pain or claudication. Patient relates to smoking socially while in college. Mild pain noted at rest as well as pain more significantly noted when attempting to bear weight. X-rays obtained in the emergency department were negative for acute bony pathology. No history of nonhealing ulceration. cc:: CC: Ba Lopes MD Review of Systems ROS Status of ROS 10 or more systems reviewed and unremark able except as noted in history and below [facility] Medical History (Updated 06/22/24 @ 18:37 by Clay Solano DPM) HTN (hypertension) ?I10 - Essential (primary) hypertension (ICD-10) Dementia ?F03.90 - Unspecified dementia, unspecified severity, without behavioral disturbance, psychotic disturbance, mood disturbance, and anxiety (ICD-10) 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 - Personal history of non-Hodgkin lymphomas (ICD-10) History of anxiety ?Z86.59 - Personal history of other mental and behavioral disorders (ICD-10) Hx of primary hypertension ?Z86.79 - Personal history of other diseases of the circulatory system (ICD- 10) Hx of chronic kidney disease ?Z87.448 - Personal history of other diseases of urinary system (ICD-10) History of depression ?Z86.59 - Personal history of other mental and behavioral disorders (ICD-10) History of malignant neoplasm of uterus ?Z85.42 - Personal history of malignant neoplasm of other parts of uterus (ICD-10) History of asthma ?Z87.09 - Personal history of other diseases of the respiratory system (ICD- 10) Hx of osteoarthritis ?Z87.39 - Personal history of other diseases of the musculoskeletal system and connective tissue (ICD-10) Hx of osteoporosis ?Z87.39 - Personal history of other diseases of the musculoskeletal system and connective tissue (ICD-10) History of dementia ?Z86.59 - Personal history of other mental and behavioral disorders (ICD-10) Surgical History (Updated 06/18/24 @ 14:09 by Halima Stover) H/O: hysterectomy ?Z90.710 - Acquired absence of both cervix and uterus (ICD-10) S/P lumbar fusion ?Z98.1 - Arthrodesis status (ICD-10) Cervical vertebral fusion ?M43.22 - Fusion of spine, cervical region (ICD-10) Family History (Updated 06/18/24 @ 14:10 by Halima Stover) Mother Family history of cancer Father Family history of stroke Family history of hypertension Social History (Updated 06/18/24 @ 14:13 by Halima Stover) Within the past year, how often did you have a drink containing alcohol: monthly or less Smoking status: Former smoker Non-prescribed substance use: denies use Previous occupational history: retired Highest level of school completed/degree received: some college, no degree Are you now , , , , never or living with a partner: Little interest or pleasure in doing things: several days Feeling down, depressed, or hopeless: several days Feel stressed/tense/nervous/anxious/difficulty sleeping: to some extent Life stressors: recent of family or friend Life stressor details: been 15 years since , but still sad Meds Home Medications and Allergies Home Medications ?Medication ?Instructions ?Recorded ?Confirmed ?Type amlodipine 5 mg tablet 5 mg PO DAILY 06/18/24 06/18/24 History donepezil 10 mg tablet 10 mg PO BEDTIME 06/18/24 06/18/24 History fluticasone propionate 44 2 inh inhalation BID 06/18/24 06/18/24 History mcg/actuation HFA aerosol inhaler (Flovent HFA) ibuprofen 800 mg tablet (IBU) 800 mg PO Q8H PRN pain 06/18/24 06/18/24 History lovastatin 10 mg tablet 5 mg PO BEDTIME 06/18/24 06/18/24 History mirtazapine 15 mg tablet 15 mg PO BEDTIME 06/18/24 06/18/24 History multivitamin 1 tab PO DAILY 06/18/24 06/18/24 History ondansetron 4 mg disintegrating 4 mg PO Q6H PRN nausea and vomiting 06/18/24 06/18/24 History tablet polyethylene glycol 3350 17 17 g PO BID 06/18/24 06/18/24 History gram/dose oral powder sennosides 8.6 mg-docusate sodium 1 tab-cap PO DAILY PRN constipation 06/18/24 06/18/24 History 50 mg tablet (Senna-S) sertraline 25 mg tablet 12.5 mg PO DAILY 06/18/24 06/18/24 History vitamins A,C,L-jbni-gtwgkg 2,148 2 tab PO .QD 06/18/24 06/18/24 History mcg-113 mg-45 mg-17.4 mg tablet (PreserVision AREDS) Allergies Allergy/AdvReac Type Severity Reaction Status Date / Time clindamycin Allergy Unknown Unknown Verified 06/18/24 08:31 latex Allergy Unknown Unknown Verified 06/18/24 08:31 Sulfa (Sulfonamide Allergy Unknown Unknown Verified 06/18/24 08:31 Antibiotics) Exam Narrative Exam Narrative: Skin: Skin is overall thin and atrophic with granular ulcerations noted on alexandro leann hallux and dorsal midfoot as well as posterior lateral heel all on the right foot. No signs of infection. Vascular: Nonpalpable pedal pulses bilaterally with mild to moderate dorsal right foot swelling. No calf pain on squeeze. Bluish/purple discoloration noted to the right forefoot. Right forefoot is cold as compared to the right leg Neuro: Light touch sensation is intact. No pain out of proportion MSK: No significant deformity. Patient is able to wiggle toes without significant pain Constitutional Vital Signs, click to edit/add: Last Vital Signs Temp 97.8 F 06/22/24 15:34 Pulse 83 06/22/24 15:34 Resp 18 06/22/24 15:34 BP 144/77 H 06/22/24 15:34 Pulse Ox 92 L 06/22/24 15:34 O2 Del Method Room Air 06/22/24 15:34 O2 Flow Rate 06/20/24 09:12 Results Labs Labs: Short CBC 06/22/24 Range/Units 05:25 WBC 19.0 H (4.0-11.0) 10^3/uL Hgb 9.2 L (12.0-16.0) g/dL Hct 29.6 L (36.0-48.0) % Plt Count 444 (150-450) 10^3/uL BMP 06/22/24 05:25 Sodium 142 Potassium 3.6 Chloride 107 Carbon Dioxide 26.7 BUN 18.0 Creatinine 0.92 Glucose 133 H Calcium 8.0 L Liver Function 06/22/24 Range/Units 05:25 Total Bilirubin 0.4 (0.2-1.0) mg/dL AST 113 H (15-37) U/L ALT 58 (14-59) U/L Alkaline Phosphatase 158 H (46-116) U/L Albumin 1.7 L (3.4-5.0) g/dL Assessment and Plan Assessment and Plan (1) Closed fracture of right inferior pubic ramus: Qualifiers: Encounter type: subsequent encounter Fracture healing: with routine healing Qualified Code(s): S32.591D - Other specified fracture of right pubis, subsequent encounter for fracture with routine healing (2) Closed fracture of right superior pubic ramus: Qualifiers: Encounter type: subsequent encounter Fracture healing: with routine healing Qualified Code(s): S32.511D - Fracture of superior rim of right pubis, subsequent encounter for fracture with routine healing (3) Acute UTI: (4) Leukocytosis: Qualifiers: Leukocytosis type: leukemoid reaction Qualified Code(s): D72.823 - Leukemoid reaction (5) HTN (hypertension): Qualifiers: Hypertension type: primary hypertension Qualified Code(s): I10 - Essential (primary) hypertension (6) Dementia: Qualifiers: Dementia type: Alzheimer's Alzheimer's disease onset: late onset Dementia severity: severe Dementia behavioral or psychological symptom: with anxiety Qualified Code(s): G30.1 - Alzheimer's disease with late onset; 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, severe, with anxiety (7) Severe protein-calorie malnutrition: (8) PAD (peripheral artery disease): (9) Ulcer of right foot with fat layer exposed: (10) Pressure ulcer, heel, right, unstageable: Plan Patient seen and evaluated. Patient education provided. Patient's recent development of ulceration is most likely secondary to vascular issue. Discoloration may be consistent with acute on chronic arterial problem or venous congestion. I ordered arterial Dopplers of bilateral lower extremities as well as ABIs/TBI's with segmental pressures. Wound care: Apply Santyl daily with gauze dressing -no compressive/circum ferential dressings until acute arterial problem can be ruled out I did discuss referral to a vascular surgeon however daughter who is present during the examination related that is long as patient is not in severe pain they would not move forward with any major surgery therefore this referral may be considered once discharge and pending the vascular studies Patient may weight-bear as tolerated on her right foot Continue offloading with bunny boots Will follow
[2024-06-22] MEDS: CIPROFLOXACIN IN 5 % DEXTROSE 400 MG/200 ML PREMIX 200 MG IV (21:57)
[2024-06-22] MEDS: MIRTAZAPINE 15 MG TABLET PO (21:57)
[2024-06-22] MEDS: ATORVASTATIN CALCIUM 10 MG TABLET 5 MG PO (21:57)
[2024-06-22] MEDS: DONEPEZIL HCL 10 MG TABLET PO (21:57)
[2024-06-22] MEDS: CEFTRIAXONE 1,000 MG in 0.9 % SODIUM CHLORIDE 50 ML 100 MG IV (23:29)
--- NOTE | 2024-06-23 | VEIN_ITS ---
The [address] [address] Patient Name: BILL KO MRN: [id number] date: 1935 Sex: F Assigned Patient Location: [place] Current Patient Location: Accession/Order Number: [id number] Exam Date: 06/23/2024 08:00 Report Date: 06/24/2024 08:04 At the request of: DALJIT CASTILLO Procedure: VC Ankle Brachial Index EXAM: VC Ankle Brachial Index HISTORY: PID with ulcer COMPARISON: None. FINDINGS: Segmental pressures presented as follows (right, left) in mmHg. Brachial: 127,142 DPA: 54,145 MODELING MANAGER: 177,197 1st Toe: 45,153 SATHISH: 1.25, 1.39 TBI: .32, 1.08 The ABIs are normal on the right and elevated on the left consistent with calcification/vessel hardening The TBI's demonstrates moderate right ischemia and normal on the left VEIN/VC Ankle Brachial Index IMPRESSION: Left SATHISH elevated due to arterial sclerosis Right TBI suggests moderate risk of ischemia Electronically authenticated by: KOKO CHAVEZ Date: 06/24/2024 08:04
[2024-06-23 06:00] VITALS: BP 138/82; PULSE 89; TEMP 36.9; O2SAT 91
[2024-06-23 06:31] LABS: Basophils Absolute Auto 0.1 10^3/uL (0.0-0.1); Basophils Percent Auto 0.3 % (0.2-2.0); Eosinophils Absolute Auto 0.1 10^3/uL (0.0-0.7); Eosinophils Percent Auto 0.7 % (0.9-7.0); Hematocrit 27.6 % (36.0-48.0); Hemoglobin 8.6 g/dL (12.0-16.0); Immature Granulocytes Abs Auto 0.34 10^3/uL (0.00-0.03); Immature Granulocytes Pct Auto 1.7 % (0.0-0.5); Lymphocytes Absolute Auto 1.3 10^3/uL (1.2-3.8); Lymphocytes Percent Auto 6.5 % (20.5-60.0); Mean Corpuscular HGB Conc 31.2 g/dL (29.9-35.2); Mean Corpuscular Hemoglobin 22.2 pg (26.7-34.0); Mean Corpuscular Volume 71.3 fL (81.0-99.0); Mean Platelet Volume 10.7 fL (9.5-13.5); Monocytes Absolute Auto 1.7 10^3/uL (0.3-0.8); Monocytes Percent Auto 8.7 % (1.7-12.0); Neutrophils Absolute Auto 16.1 10^3/uL (1.4-6.5); Neutrophils Percent Auto 82.1 % (43.0-75.0); Platelet Count 477 10^3/uL (150-450); Red Blood Count 3.87 10^6/uL (4.20-5.40); Red Cell Distribution Width 26.4 % (11.0-15.0); White Blood Count 19.6 10^3/uL (4.0-11.0)
[2024-06-23 07:11] LABS: Alanine Aminotransferase 51 U/L (14-59); Albumin Globulin Ratio 0.5; Albumin Level 1.7 g/dL (3.4-5.0); Alkaline Phosphatase 156 U/L (46-116); Anion Gap 9.2; Aspartate Amino Transferase 78 U/L (15-37); Bilirubin Total 0.4 mg/dL (0.2-1.0); Calcium 7.8 mg/dL (8.5-10.1); Carbon Dioxide 27.5 mmol/L (21.0-32.0); Chloride 108 mmol/L (98-107); Estimated GFR (African America >60 (>=60 mL/min/1.73m^2); Estimated GFR (Non-African Ame >60 (>=60 mL/min/1.73m^2); Globulin 3.5 g/dL; Glucose 113 mg/dL (74-106); Potassium 3.7 mmol/L (3.5-5.1); Sodium 141 mmol/L (136-145); Total Protein 5.2 g/dL (6.4-8.2)
[2024-06-23 07:43] VITALS: BP 144/75; PULSE 83; TEMP 36.7; O2SAT 91
--- NOTE | 2024-06-23 09:36 | CM.NOTE ---
Rounds made with Dr. Lopes, pt will discharge to [facility] today for skilled therapy.
--- NOTE | 2024-06-23 09:42 | P.DS_ITS ---
DS: Providers Provider Date of admission: 06/20/24 06:41 Primary care physician: ASHLEY PRECIADO Consults: 06/18/24 Consult to Dietitian Routine Reason for consultation: poor appetite Has provider been notified: Yes Consult to Workgroup Leader Routine Reason for consult:: Food/Nutrition 06/18/24 13:56 Occupational Therapy Eval and Treat Routine Reason for consultation: Ambulatory dysfunction/weakness Physical Therapy Eval and Treat Routine Reason for consultation: Ambulatory dysfunction/weakness 06/22/24 09:16 Consult to Podiatry Routine Consulting Provider: Clay Solano Reason for consultation: R foot injury Has provider been notified: No DS: Diagnosis Discharge Diagnosis (1) Closed fracture of right inferior pubic ramus: Qualifiers: Encounter type: subsequent encounter Fracture healing: with routine healing Qualified Code(s): S32.591D - Other specified fracture of right pubis, subsequent encounter for fracture with routine healing (2) Closed fracture of right superior pubic ramus: Qualifiers: Encounter type: subsequent encounter Fracture healing: with routine healing Qualified Code(s): S32.511D - Fracture of superior rim of right pubis, subsequent encounter for fracture with routine healing (3) Acute UTI: (4) Leukocytosis: Qualifiers: Leukocytosis type: leukemoid reaction Qualified Code(s): D72.823 - Leukemoid reaction (5) HTN (hypertension): Qualifiers: Hypertension type: primary hypertension Qualified Code(s): I10 - Essential (primary) hypertension (6) Dementia: Qualifiers: Alzheimer's disease onset: late onset Dementia behavioral or psychological symptom: with anxiety Dementia severity: severe Dementia type: Alzheimer's Qualified Code(s): G30.1 - Alzheimer's disease with late onset; 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, severe, with anxiety (7) Severe protein-calorie malnutrition: (8) PAD (peripheral artery disease): (9) Ulcer of right foot with fat layer exposed: (10) Pressure ulcer, heel, right, unstageable: Plan Admission findings: Tachycardia, leukocytosis, hypernatremia, hypokalemia, acute elevation in creatinine, positive urinalysis consistent with acute UTI causing sepsis (tachycardia, leukocytosis, known infectious source of urine, lactate not obtained on admission that may have resulted in severe sepsis, patient will be unable to tolerate aggressive fluid resuscitation anyway) Sepsis-as outlined above secondary to acute UTI-culture pending still, check on culture results later today, white blood cell count is back elevated today Closed fracture of right inferior pubic ramus: Physical therapy to work with patient today likely rehab tomorrow or day after if maintains current treatment and improvement as outlined above more than likely 2 days Closed fracture of right superior pubic ramus: PT to work with patient today Right foot bruising-overall repeat x-ray, consult to podiatry HTN (hypertension): Stable, continue with current medications Depression-continue with current medications Dementia: Deteriorated secondary to the acute UTI, sepsis and change in environment seems pretty stable with her alertness today Severe protein-calorie malnutrition: Diet supplementation Iron deficiency anemia-improved today Hyponatremia on admission-resolved Hypokalemia on admission-resolved Elevated liver function tests-this is likely secondary to the sepsis as outlined above, slightly elevated again today, continue to monitor Admission status: Patient placed in initial observation time period, white blood cell count has remained persistently elevated and is currently still over 20,000, failing the initial timeframe of observation, with significantly elevated white blood cell count, sepsis persisting, patient will be changed to inpatient status as medically necessary treatment will span more than 2 midnights DS: Summary Hospital Course Hospital Course: She has sustained a fall and had pubic ramus fracture, also found to have Tachycardia, leukocytosis, hypernatremia, hypokalemia, acute elevation in creatinine, positive urinalysis consistent with acute UTI causing sepsis (tachycardia, leukocytosis, known infectious source of urine, lactate not obtained on admission that may have resulted in severe sepsis, patient will be unable to tolerate aggressive fluid resuscitation anyway) She was treated aggressively with IV antibiotics, she did finally respond fairly well with improving white blood cell count last couple days white blood cell count was cr ept back up, sensitivity to the urine infection did come back and it is sensitive but she has been on but with the elevation in the white blood cell count we will discharge her today on a different oral agent, can [facility] patient [facility] where she will start receiving rehabilitation Status at Discharge Overall status at discharge: patient is not back to baseline Time Spent with Patient Time attestation: Total time spent providing and/or coordinating discharge services: Time spent: greater than 30 minutes Exam Constitutional Vital Signs, click to edit/add: Last Vital Signs Temp 98.0 F 06/23/24 07:43 Pulse 83 06/23/24 07:43 Resp 16 06/23/24 07:43 BP 144/75 H 06/23/24 07:43 Pulse Ox 91 L 06/23/24 07:43 O2 Del Method Room Air 06/23/24 07:43 O2 Flow Rate 18 06/20/24 09:12 DS: Data Data Completed and Pending Labs on day of discharge: Labs from last 24 hours 06/23/24 05:51 WBC 19.6 H RBC 3.87 L Hgb 8.6 L Hct 27.6 L MCV 71.3 L MCH 22.2 L MCHC 31.2 RDW 26.4 H Plt Count 477 H MPV 10.7 Neut % (Auto) 82.1 H Lymph % (Auto) 6.5 L Conway % (Auto) 8.7 Eos % (Auto) 0.7 L Baso % (Auto) 0.3 Neut # (Auto) 16.1 H Lymph # (Auto) 1.3 [place] # (Auto) 1.7 H Eos # (Auto) 0.1 Baso # (Auto) 0.1 Abs Immat Gran (auto) 0.34 H Imm/Tot Granulo (auto) 1.7 H Sodium 141 Potassium 3.7 Chloride 108 H Carbon Dioxide 27.5 Anion Gap 9.2 BUN 15.0 Creatinine 0.88 Est GFR ( Amer) >60 Est GFR (Non-Af Amer) >60 BUN/Creatinine Ratio 17.0 Glucose 113 H Calcium 7.8 L Total Bilirubin 0.4 AST 78 H ALT 51 Alkaline Phosphatase 156 H Total Protein 5.2 L Albumin 1.7 L Globulin 3.5 Albumin/Globulin Ratio 0.5 Discharge Plan Discharge Disposition: Xfer SNF Discharge Medications: New doxycycline monohydrate 100 mg Capsule 100 mg PO BID Qty: 20 0RF Continued amlodipine 5 mg tablet 5 mg PO DAILY donepezil 10 mg tablet 10 mg PO BEDTIME lovastatin 10 mg tablet 5 mg PO BEDTIME mirtazapine 15 mg tablet 15 mg PO BEDTIME sertraline 25 mg tablet 12.5 mg PO DAILY polyethylene glycol 3350 17 gram/dose powder 17 g PO BID multivitamin Tablet 1 tab PO DAILY fluticasone propionate [Flovent HFA] 44 mcg/actuation HFA aerosol inhaler 2 inh inhalation BID Rx Instructions: administer with spacer ibuprofen [IBU] 800 mg tablet 800 mg PO Q8H PRN (Reason: pain) ondansetron 4 mg tablet,disintegrating 4 mg PO Q6H PRN (Reason: nausea and vomiting) PreserVision AREDS 2,148 mcg-113 mg-45 mg-17.4mg tablet 2 tab PO .QD Rx Instructions: administer with AM and PM meals sennosides-docusate sodium [Senna-S] 8.6-50 mg tablet 1 tab-cap PO DAILY PRN (Reason: constipation) Print Language: Bel[place]ian Clinical Documentation Nurse/Radio Division Captain Instructions: Discharge to [facility] skilled Forms: Portal Instructions Discharge Date/Time: 06/23/24 13:29
[2024-06-23] MEDS: ENSURE ORIGINAL 237 ML BOTTLE PO (09:52)
[2024-06-23] MEDS: DOXYCYCLINE MONOHYDRATE 100 MG CAPSULE PO (09:52)
[2024-06-23] MEDS: AMLODIPINE BESYLATE 5 MG TABLET PO (09:52)
[2024-06-23] MEDS: SERTRALINE HCL 50 MG TABLET 12.5 MG PO (09:52)
[2024-06-23] MEDS: COLLAGENASE CLOSTRIDIUM HIST. 250 UNITS/GM 30 GRAM TUBE 1 APPLIC TOPICAL (09:52)
[2024-06-23] MEDS: PROSTAT 15 GM PROTEIN/100 CAL 30 ML LIQUID PACKET PO (09:52)
--- NOTE | 2024-06-23 11:56 | REH.PTDLY ---
Physical Therapy Daily Note PT Daily Note/Assess Start: 06/21/24 09:07 Freq: Status: Active Protocol: Document 06/23/24 11:54 MIKEY (Rec: 06/23/24 11:55 [id number] Visit Not Completed Visit Not Completed Pt level of alertness Due to: Other Reason Visit Attempted 2x this AM for treatment. Pt in deep sleep Not Completed each time. Woke pt on second attempt and pt very out of it during conversation. When asked to participate in PT, pt declines. Will check back later this afternoon on pt. Physical Therapy Daily Note/Assessment Time In 11:43 Time Out 11:46
--- NOTE | 2024-06-23 11:57 | CM.NOTE ---
2nd Notice of Important Message From Medicare discussed with pt, pt denies any questions or concerns.
[2024-06-23 12:05] VITALS: O2SAT 94
--- NOTE | 2024-06-23 12:27 | SWNOTE1 ---
Pt is ready for discharge today and she will be going to [facility] skilled. TERRIE called and spoke to pt's daughter. She is in agreement that pt needs to go by ambulance. She voiced she is not feeling well and won't be able to be there when pt is transferred or admitted to [facility]. SW let her know that SW will let [facility] know to call her with any questions. Daughter also waiting front desk manager from pt's nurse as well. TERRIE called and set up stretcher transport for 1:00. TERRIE notified nurse, BCC, and daughter of time. Daughter did speak with nurse as well. TERRIE completed HENS. TERRIE faxed dc med rec to [facility]. TERRIE took packet to med surge floor.
== END 2024-06-23 13:29 | DRG 871 ==
LOC: ER 12:47 → MS 13:53
PROVIDERS: Admitting Provider Internal Medicine; Emergency Provider Emergency Medicine; PCP Family Medicine; Visit Provider Family Medicine
DX: A41.59 Other Gram-negative sepsis (principal); E43 Unspecified severe protein-calorie malnutrition; S32.591A Other specified fracture of right pubis, initial encounter for closed fracture; N39.0 Urinary tract infection, site not specified; F02.C4 Dementia in other diseases classified elsewhere, severe, with anxiety; Z68.1 Body mass index [BMI] 19.9 or less, adult; E87.0 Hyperosmolality and hypernatremia; W19.XXXA Unspecified fall, initial encounter; I10 Essential (primary) hypertension; Z85.72 Personal history of non-Hodgkin lymphomas; Z85.42 Personal history of malignant neoplasm of other parts of uterus; J45.909 Unspecified asthma, uncomplicated; M81.0 Age-related osteoporosis without current pathological fracture; Z98.1 Arthrodesis status; Z90.710 Acquired absence of both cervix and uterus; Z87.891 Personal history of nicotine dependence; Z79.899 Other long term (current) drug therapy; D72.823 Leukemoid reaction; E86.0 Dehydration; G30.1 Alzheimer's disease with late onset; E87.6 Hypokalemia; F32.A Depression, unspecified; D50.9 Iron deficiency anemia, unspecified; R79.89 Other specified abnormal findings of blood chemistry; S90.31XA Contusion of right foot, initial encounter; I73.9 Peripheral vascular disease, unspecified; L97.512 Non-pressure chronic ulcer of other part of right foot with fat layer exposed; L89.610 Pressure ulcer of right heel, unstageable; Z66 Do not resuscitate
CPT/HCPCS: 36415; 73502; 73630; 73700; 74022; 80048; 80053; 81001; 85007; 85025; 85027; 85610; 85730; 87045; 87046; 87086; 87150; 87186; 87427; 87493; 93005; 93922; 93925; 94640; 94761; 96365; 96375; 97110; 97162; 97165; 97530; 97535; 99285; G0378; J0690; J0696; J0744; J1171; J1650; J2405; J3010

== ENCOUNTER 2024-06-27 16:01 | Emergency (ER) | payer MEDICARE, OTHER, MEDICAID, SELFPAY ==
[2024-06-27 16:05] VITALS: BP 139/78; PULSE 86; TEMP 37.2; O2SAT 95; BMI 22.8
--- OUTSIDE RECORDS SUMMARY | 2024-06-27 16:21 | XMS_ITS | CCD ---
Author Organization [facility] [place] Inform ion Partnership [facility] Care Team Providers Care Insurance Sales Professional Name Role Phone Timothy Washington Primary Care Provider [phone] Kristy Rowe Attending Provider TIMOTHY WASHINGTON Primary [...] Unavailable Furlong Timothy SNYDER Primary Care Provider [phone] TIMOTHY WASHINGTON Referring Unavailable STEPHANIALONG, TIMOTHY G [...] Clindamycin; Translations: [CLINDAMYCIN] Drug Allergy 0 Rash [facility] (11 sources) Latex; Translations: [latex] Allergy to substance 3 Rash [facility] (10 sources) Sulfonamides (Antibiotic); Translations: [SULFA (SULFONAMIDE ANTIBIOTICS)] Allergy to substance 3 Other (See Comments) [facility] (1 source) Sulfonamides (Antibiotic) Drug allergy (disorder) 5 [facility] Medications Current Medications Medication [...] Active docusate sodium 50 mg / sennosides, penitentiary 8.6 mg oral tablet (7 sources) Start: [...] mouth in the morning. 0 12/24/2004 Active Kktonjqmkwyu-Fchr-Vwadk Acid (1 source) Start: 02-20-2020 take 1 tablet by mouth once daily Ygaftwepxoee-Bcvz-Aghse Acid Active 1 TAB Oral Daily February 20, 2020 10:23am Prescott-3 Fatty Acids (1 source) Start: 02-20-2020 take 1000 mg by mouth once daily Prescott-3 Fatty Acids Active 1000 MG Oral Daily February 20, 2020 10:23am pantoprazole 40 mg extended release oral tablet (1 source) Proton Pump Inhibitor Start: 02-20-2020 take 40 mg by mouth once daily Pantoprazole Active 40 MG Oral Daily February 20, 2020 10:23am polyethylene glycol 3350 24484 mg powder for oral solution (5 sources) [...] 12-10-2023 Albumin [Mass/Vol] 4.0 g/dL Normal 3.2-5.3 [facility] Comment on above: Performed By: #### C CATY, 80372-0 #### [facility] ([id number]) [address] [place] [address] ALP [Catalytic activity/Vol] 121 U/L Normal 39-130 [facility] Comment on above: Performed By: #### Lakshmi BYRNE, 90771-3 #### [facility] ([id number]) [address], [address] [place] [address] ALT [Catalytic activity/Vol] 24 U/L Normal 0-31 [facility] Comment on above: Performed By: #### Lakshmi BYRNE, 31818-5 #### [facility] ([id number]) [address] [place] [address] Anion gap [Moles/Vol] 9 mmol/L Normal 5-15 [facility] Comment on above: Performed By: #### Lakshmi BYRNE, 85155-7 #### [facility] ([id number]) [address], [address] [place] [address] AST [Catalytic activity/Vol] 33 U/L Normal 0-41 [facility] Comment on above: Performed By: #### Lakshmi BYRNE, 85510-1 #### [facility] ([id number]) [address], [address] [place] [address] Bilirubin [Mass/Vol] 0.3 mg/dL Normal 0.3-1.2 [facility] Comment on above: Performed By: #### Lakshmi BYRNE, 24548-5 #### [facility] ([id number]) [address], [address] [place] [address] Calcium [Mass/Vol] 8.8 mg/dL Normal 8.5-10.5 [facility] Comment on above: Performed By: #### Lakshmi BYRNE, 00988-8 #### [facility] ([id number]) [address], [address] [place] [address] Chloride [Moles/Vol] 106 mmol/L Normal 98-109 [facility] Comment on above: Performed By: #### Lakshmi BYRNE, 34168-8 #### [facility] ([id number]) [address], [address] [place] [address] CO2 [Moles/Vol] 26 mmol/L Normal 22-32 [facility] Comment on above: Performed By: #### Lakshmi BYRNE, 75345-8 #### [facility] ([id number]) [address], [address] [place] [address] Creatinine [Mass/Vol] 1.14 mg/dL High 0.40-1.00 [facility] Comment on above: Result Comment: METH OD TRACEABLE TO IDMS STANDARD Performed By: #### Lakshmi BYRNE, 24009-2 #### [facility] ([id number]) [address], [address] [place] [address] GFR/1.73 sq M.predicted among non-blacks MDRD (S/P/Bld) [Vol rate/Area] 47 mL/min/{1.73_m2} Low >59 [facility] Comment on above: Result Comment: Reported eGFR is based on the CKD-EPI 2020 equation that does not use a race coefficient. Performed By: #### Lakshmi BYRNE, 34977-3 #### [facility] ([id number]) [address] [place] [address] Glucose [Mass/Vol] 96 mg/dL Normal 65-99 [facility] Comment on above: Performed By: #### Lakshmi BYRNE, 72898-5 #### [facility] ([id number]) [address], [address] [place] [address] Potassium [Moles/Vol] 4.1 mmol/L Normal 3.5-5.0 [facility] Comment on above: Performed By: #### Lakshmi BYRNE 07335-1 #### [facility] ([id number]) [address] [place] [address] Protein [Mass/Vol] 7.0 g/dL Normal 6.0-8.0 [facility] Comment on above: Performed By: #### Lakshmi BYRNE 16951-5 #### [facility] ([id number]) [address], [address] [place] [address] Sodium [Moles/Vol] 141 mmol/L Normal 134-146 [facility] Comment on above: Performed By: #### C CATY, 51861-3 #### [facility] ([id number]) [address] [facility] [address] [place] [address] Urea nitrogen [Mass/Vol] 21 mg/dL Normal 5-27 [facility] Comment on above: Performed By: #### C CATY, 78080-3 #### [facility] ([id number]) [address], [address] [place] [address] Lipid 1996 panelon 4 Cholesterol [Mass/Vol] 163 mg/dL Normal 150-200 [facility] Comment on above: Performed By: #### C CATY, 93004-7 #### [facility] ([id number]) [address], [address] [place] [address] Cholesterol in HDL [Mass/Vol] 76 mg/dL Normal >39 [facility] Comment on above: Result Comment: HDL <40 mg/dL - High Risk HDL > or = 40mg/dL- Desirable HDL >60 mg/dL - Negative Risk Performed By: #### C CATY, 09013-0 #### [facility] ([id number]) [address], [address] [place] [address] Cholesterol in LDL [Mass/Vol] 71 mg/dL Normal <130 [facility] Comment on above: Result Comment: LDL <100 mg/dL - Desirable LDL >160 mg/dL - High Risk Performed By: #### C CATY, 74933-9 #### [facility] ([id number]) [address] [place] [address] Cholesterol in VLDL [Mass/Vol] 16 mg/dL Normal 0-30 [facility] Comment on above: Performed By: #### C CATY, 67348-1 #### [facility] ([id number]) [address], [address] [place] [address] CHOLESTEROL:HDL 2.1 Normal 1.0-5.0 [facility] Comment on above: Performed By: #### C CATY, 43560-4 #### [facility] ([id number]) [address], [address] [place] [address] Triglyceride [Mass/Vol] 82 mg/dL Normal 27-150 [facility] Comment on above: Performed By: #### Lakshmi BYRNE, 82167-1 #### [facility] ([id number]) [address], [address] [place] [address] CULTURE, URINE, ROUTINEon CULTURE, URINE, ROUTINE SEE NOTE Normal [facility] Comment on above: Result Comment: CULTURE, URINE, ROUTINE Micro Number: [id number] Test Status: Final Specimen Source: Urine Specimen Quality: Adequate Result: Growth of mixed fran was isolated, suggesting probable contamination. No further testing will be performed. If clinically indicated, recollection using a method to minimize contamination, with prompt transfer to Urine Culture Transport Tube, is recommended. Performed By: #### 3 95 #### [facility] [address], [address] [place] [phone] Front End Engineer: Shashi Hutchins MD BASIC METABOLIC PANELon 03-26 Calcium [Mass/Vol] 9.1 mg/dL Normal 8.6-10.4 [facility] Comment on above: Performed By: #### 1 0165, 4340 #### [facility] [address], [address] [place] [phone] Front End Engineer: Shashi Hutchins MD Chloride [Moles/Vol] 108 mmol/L Normal 98-110 [facility] Comment on above: Performed By: #### 1 0165, 7600 #### [facility] [place] [address] Front End Engineer: Shashi Hutchins MD CO2 [Moles/Vol] 27 mmol/L Normal 20-32 [facility] Comment on above: Performed By: #### 1 016, 7600 #### [facility] [place] [address] Front End Engineer: Shashi Hutchins MD Creatinine [Mass/Vol] 0.99 mg/dL High 0.60-0.88 [facility] Comment on above: Result Comment: For patients >49 years of age, the reference limit for Creatinine is approximately 13% higher for people identified as -Finnish. Performed By: #### 1 016, 0 #### [facility] [place] [address] Front End Engineer: Shashi Hutchins MD eGFR NON-AFR. MALTESE 52 mL/min/1.73m2 Low > OR = 60 [facility] Comment on above: Performed By: #### 1 016, 7600 #### [facility] [place] [address] Front End Engineer: Shashi Hutchins MD GFR/1.73 sq M.predicted among blacks MDRD (S/P/Bld) [Vol rate/Area] 60 mL/min/{1.73_m2} Normal > OR = 60 [facility] Comment on above: Performed By: #### 1 016, 7600 #### [facility] [place] [address] Front End Engineer: Shashi Hutchins MD Glucose [Mass/Vol] 113 mg/dL Normal 65-139 [facility] Comment on above: Result Comment: Non-fasting reference interval For someone without known diabetes, a glucose value between 100 and 125 mg/dL is consistent with prediabetes and should be confirmed with a follow-up test. Performed By: #### 1 0165, 7600 #### [facility] of [address], [address] [place] [address] Front End Engineer: Shashi Hutchins MD Potassium [Moles/Vol] 3.9 mmol/L Normal 3.5-5.3 [facility] Comment on above: Performed By: #### 1 0165, 7600 #### [facility] of [address], [address] [place] [address] Front End Engineer: Shashi Hutchins MD Sodium [Moles/Vol] 143 mmol/L Normal 135-146 [facility] Comment on above: Performed By: #### 1 0165, 7600 #### [facility] of [address], [address] [place] [address] Front End Engineer: Shashi Hutchins MD Urea nitrogen [Mass/Vol] 17 mg/dL Normal 7-25 [facility] Comment on above: Performed By: #### 1 0165, 7600 #### [facility] of [address], [address] [place] [address] Front End Engineer: Shashi Hutchins MD Urea nitrogen/Creatinin e [Mass ratio] 17 mg/mg Normal 6-22 [facility] Comment on above: Performed By: #### 1 0165, 7600 #### [facility] of [place] [address] Front End Engineer: Shashi Hutchins MD LIPID PANEL, [place] [address]-2 Cholesterol [Mass/Vol] 151 mg/dL Normal <200 [facility] Comment on above: Order Comment: FASTI NG:NO FASTING: NO Performed By: #### 1 0165, 7600 #### [facility] of [place] [address] Front End Engineer: Shashi Hutchins MD Cholesterol in HDL [Mass/Vol] 67 mg/dL Normal > OR = 50 [facility] Comment on above: Order Comment: FASTI NG:NO FASTING: NO Performed By: #### 1 0165, 7600 #### [facility] of [place] [address] Front End Engineer: Shashi Hutchins MD Cholesterol in LDL [Mass/Vol] [...] of LDL-C. Jac BHATT et al. SUMAYA. 2013;310(94): 6297-2818 (http://education.[employer]/faq/XQO482) Performed By: #### 1 0165, 7600 #### [facility] [address], [address] [place] [address] Front End Engineer: Shashi Hutchins MD Cholesterol.total/ Cholesterol in HDL [Mass ratio] 2.3 {ratio} Normal <5.0 [facility] Comment on above: Order Comment: FASTI NG:NO FASTING: NO Performed By: #### 1 0165, 7600 #### [facility] [place] [address] Front End Engineer: Shashi Hutchins MD NON HDL CHOLESTEROL 84 mg/dL (calc) Normal <130 [facility] Comment on above: Order Comment: FASTI NG:NO FASTING: NO Result Comment: For patients with diabetes plus 1 major ASCVD risk factor, treating to a non-HDL-C goal of <100 mg/dL (LDL-C of <70 mg/dL) is considered a therapeutic option. Performed By: #### 1 0165, 7600 #### [facility] [address], [address] [place] [address] Front End Engineer: Shashi Hutchins MD Triglyceride [Mass/Vol] 90 mg/dL Normal <150 [facility] Comment on above: Order Comment: FASTI NG:NO FASTING: NO Performed By: #### 1 0165, 7600 #### [facility] of [place] [address] [place] [address] Front End Engineer: Shashi Hutchins MD CBC (INCLUDES DIFF/PLT)on Basophils (Bld) [#/Vol] 0.056 10*3/uL Normal 0-200 [facility] Comment on above: Performed By: #### 6 22, 6399, 90590, 718, 905, 97200 #### [facility] of [place] [address] Front End Engineer: Shashi Hutchins MD Basophils/100 WBC (Bld) 0.6 % Normal [facility] Comment on above: Performed By: #### 6 22, 6399, 90154, 718, 905, 92515 #### [facility] [place] [address] Front End Engineer: Shashi Hutchins MD Eosinophils (Bld) [#/Vol] 0.112 10*3/uL Normal 15-500 [facility] Comment on above: Performed By: #### 6 22, 6399, 97816, 718, 905, 82310 #### [facility] [place] [address] Front End Engineer: Shashi Hutchins MD Eosinophils/100 WBC (Bld) 1.2 % Normal [facility] Comment on above: Performed By: #### 6 22, 6399, 38173, 718, 905, 47332 #### [facility] of [place] [address] Front End Engineer: Shashi Hutchins MD Erythrocyte distribution width (RBC) [Ratio] 17.6 % High 11.0-15.0 [facility] Comment on above: Performed By: #### 6 22, 6399, 13787, 718, 905, 98223 #### [facility] of [place] [address] Front End Engineer: Shashi Hutchins MD Hematocrit (Bld) [Volume fraction] 36.2 % Normal 35.0-45.0 [facility] Comment on above: Performed By: #### 6 22, 6399, 47029, 718, 905, 25848 #### [facility] of [place] [address] Front End Engineer: Shashi Hutchins MD Hemoglobin (Bld) [Mass/Vol] 10.8 g/dL Low 11.7-15.5 [facility] Comment on above: Performed By: #### 6 22, 63, 53518, 71, 905, 49570 #### [facility] of [address], [address] [place] [address] Front End Engineer: Shashi Hutchins MD Lymphocytes (Bld) [#/Vol] 2.483 10*3/uL Normal 850-3900 [facility] Comment on above: Performed By: #### 6 22, 63, 13863, 71, 905, 54980 #### [facility] of [place] [address] Front End Engineer: Shashi Hutchins MD Lymphocytes/100 WBC (Bld) 26.7 % Normal [facility] Comment on above: Performed By: #### 6 22, 63, 30060, 71, 905, 57895 #### [facility] of [place] [address] Front End Engineer: Shashi Hutchins MD MCH (RBC) [Entitic mass] 23.0 pg Low 27.0-33.0 [facility] Comment on above: Performed By: #### 6 , 63, 40696, 71, 905, 03707 #### [facility] of [place] [address] Front End Engineer: Shashi Hutchins MD MCHC (RBC) [Mass/Vol] 29.8 g/dL Low 32.0-36.0 [facility] Comment on above: Performed By: #### 6 22, 63, 17730, 718, 905, 97511 #### [facility] of [place] [address] Front End Engineer: Shashi Hutchins MD MCV (RBC) [Entitic vol] 77.2 fL Low 80.0-100.0 [facility] Comment on above: Performed By: #### 6 22, 6399, 83926, 718, 905, 86276 #### [facility] of [place] [address] Front End Engineer: Shashi Hutchins MD Monocytes (Bld) [#/Vol] 0.856 10*3/uL Normal 200-950 [facility] Comment on above: Performed By: #### 6 22, 6399, 52464, 718, 905, 76821 #### [facility] of [place] [address] Front End Engineer: Shashi Hutchins MD Monocytes/100 WBC (Bld) 9.2 % Normal [facility] Comment on above: Performed By: #### 6 22, 63, 46273, 718, 905, 80368 #### [facility] of [place] [address] Front End Engineer: Shashi Hutchins MD Neutrophils (Bld) [#/Vol] 5.794 10*3/uL Normal 9501-8182 [facility] Comment on above: Performed By: #### 6 22, 6399, 83047, 718, 905, 75093 #### [facility] [place] [address] Front End Engineer: Shashi Hutchins MD Neutrophils/100 WBC (Bld) 62.3 % Normal [facility] Comment on above: Performed By: #### 6 22, 6399, 55923, 718, 905, 63210 #### [facility] of [place] [address] Front End Engineer: Shashi Hutchins MD Platelet mean volume (Bld) [Entitic vol] 11.0 fL Normal 7.5-12.5 [facility] Comment on above: Performed By: #### 6 22, 6399, 52724, 718, 905, 76804 #### [facility] of [place] [address] Front End Engineer: Shashi Hutchins MD Platelets (Bld) [#/Vol] 556 10*3/uL High 140-400 [facility] Comment on above: Performed By: #### 6 22, 6399, 18577, 718, 905, 96185 #### [facility] of [place] [address] Front End Engineer: Shashi Hutchins MD RBC (Bld) [#/Vol] 4.69 10*6/uL Normal 3.80-5.10 [facility] Comment on above: Performed By: #### 6 22, 6399, 68750, 718, 905, 95592 #### [facility] of [place] [address] Front End Engineer: Shashi Hutchins MD WBC (Bld) [#/Vol] 9.3 10*3/uL Normal 3.8-10.8 [facility] Comment on above: Performed By: #### 6 22, 6399, 81639, 718, 905, 70907 #### [facility] of [place] [address] Front End Engineer: Shashi Hutchins MD [facility] 09-06-2020 Albumin [Mass/Vol] 4.2 g/dL Normal 3.6-5.1 [facility] Comment on above: Performed By: #### 6 22, 6399, 66845, 718, 905, 84364 #### [facility] of [place] [address] Front End Engineer: Shashi Hutchins MD Albumin/Globulin [Mass ratio] 1.4 {ratio} Normal 1.0-2.5 [facility] Comment on above: Performed By: #### 6 22, 6399, 71597, 718, 905, 42397 #### [facility] of [place] [address] Front End Engineer: Shashi Hutchins MD ALP [Catalytic activity/Vol] 112 U/L Normal 37-153 [facility] Comment on above: Performed By: #### 6 22, 6399, 82666, 71, 905, 29284 #### [facility] of [place] [address] Front End Engineer: Shashi Hutchins MD ALT [Catalytic activity/Vol] 14 U/L Normal 6-29 [facility] Comment on above: Performed By: #### 6 22, 63, 17184, , 905, 07688 #### [facility] of [place] [address] Front End Engineer: Shashi Hutchins MD AST [Catalytic activity/Vol] 25 U/L Normal 10-35 [facility] Comment on above: Performed By: #### 6 22, 63, 95528, 71, 905, 25404 #### [facility] of [place] [address] Front End Engineer: Shashi Hutchins MD Bilirubin [Mass/Vol] 0.3 mg/dL Normal 0.2-1.2 [facility] Comment on above: Performed By: #### 6 22, 63, 54821, 71, 905, 09382 #### [facility] of [place] [address] Front End Engineer: Shashi Hutchins MD Calcium [Mass/Vol] 9.2 mg/dL Normal 8.6-10.4 [facility] Comment on above: Performed By: #### 6 22, 63, 24585, 71, 905, 78793 #### [facility] of [place] [address] Front End Engineer: Shashi Hutchins MD Chloride [Moles/Vol] 108 mmol/L Normal 98-110 [facility] Comment on above: Performed By: #### 6 22, 63, 18622, 718, 905, 68751 #### [facility] of [place] [address] Front End Engineer: Shashi Hutchins MD CO2 [Moles/Vol] 25 mmol/L Normal 20-32 [facility] Comment on above: Performed By: #### 6 22, 6399, 00246, 718, 905, 78696 #### [facility] [place] [address] Front End Engineer: Shashi Hutchins MD Creatinine [Mass/Vol] 0.96 mg/dL High 0.60-0.88 [facility] Comment on above: Result Comment: For patients >49 years of age, the reference limit for Creatinine is approximately 13% higher for people identified as -Finnish. Performed By: #### 6 22, 6399, 46403, 718, 905, 17545 #### [facility] [place] [address] Front End Engineer: Shashi Hutchins MD eGFR NON-AFR. MALTESE 54 mL/min/1.73m2 Low > OR = 60 [facility] Comment on above: Performed By: #### 6 22, 6399, 12350, 718, 905, 91718 #### [facility] [place] [address] Front End Engineer: Shashi Hutchins MD GFR/1.73 sq M.predicted among blacks MDRD (S/P/Bld) [Vol rate/Area] 63 mL/min/{1.73_m2} Normal > OR = 60 [facility] Comment on above: Performed By: #### 6 22, 63, 68096, 71, 905, 71183 #### [facility] [place] [address] Front End Engineer: Shashi Hutchins MD Globulin (S) [Mass/Vol] 2.9 g/dL Normal 1.9-3.7 [facility] Comment on above: Performed By: #### 6 22, 6399, 45133, 718, 905, 88849 #### [facility] [place] [address] Front End Engineer: Shashi Hutchins MD Glucose [Mass/Vol] 83 mg/dL Normal 65-99 [facility] Comment on above: Result Comment: Fasting reference interval Performed By: #### 6 22, 6399, 26013, 718, 905, 38790 #### [facility] of [place] [address] Front End Engineer: Shashi Hutchins MD Potassium [Moles/Vol] 4.3 mmol/L Normal 3.5-5.3 [facility] Comment on above: Performed By: #### 6 22, 6399, 22312, 718, 905, 12635 #### [facility] of [place] [address] Front End Engineer: Shashi Hutchins MD Protein [Mass/Vol] 7.1 g/dL Normal 6.1-8.1 [facility] Comment on above: Performed By: #### 6 22, 63, 69738, 71, 905, 37056 #### [facility] of [place] [address] Front End Engineer: Shashi Hutchins MD Sodium [Moles/Vol] 143 mmol/L Normal 135-146 [facility] Comment on above: Performed By: #### 6 22, 63, 85850, 71, 905, 94724 #### [facility] of [place] [address] Front End Engineer: Shashi Hutchins MD Urea nitrogen [Mass/Vol] 18 mg/dL Normal 7-25 [facility] Comment on above: Performed By: #### 6 22, 6399, 52294, 71, 905, 90181 #### [facility] of [place] [address] Front End Engineer: Shashi Hutchins MD Urea nitrogen/Creatinin e [Mass ratio] 19 mg/mg Normal 6-22 [facility] Comment on above: Performed By: #### 6 22, 6399, 35029, 718, 905, 17516 #### [facility] of [place] [address] Front End Engineer: Shashi Hutchins MD MAGNESIUMon 09-06-2020 Magnesium [Mass/Vol] 2.4 mg/dL Normal 1.5-2.5 [facility] Comment on above: Performed By: #### 6 22, 6399, 40182, 718, 905, 60924 #### [facility] [address], [address] [place] [address] Front End Engineer: Shashi Hutchins MD PHOSPHATE ( PHOSPHORUS)on 09-06-2020 Phosphate [Mass/Vol] 4.0 mg/dL Normal 2.1-4.3 [facility] Comment on above: Performed By: #### 6 22, 6399, 45554, 718, 905, 67796 #### [facility] [place] [address] Front End Engineer: Shashi Hutchins MD URIC ACIDon 09-06-2020 Urate [Mass/Vol] 5.3 mg/dL Normal 2.5-7.0 [facility] Comment on above: Result Comment: Ther apeutic target for gout patients: <6.0 mg/dL Performed By: #### 6 22, 6399, 58651, 718, 905, 53861 #### [facility] [place] [address] Front End Engineer: Shashi Hutchins MD VITAMIN D,25-OH,TOTAL,IAon 0 09-06-2020 [...] D, (D2,D3), LC/MS/MS is recommended: order code 95822 (patients >2yrs). See Note 1 Note 1 For additional information, please refer to http://education.[employer]/faq/WUT813 (This link is being provided for informational/ educational purposes only.) Performed By: #### 6 77, 9447, 94309, 544, 946, 96399 #### [facility] [address], [address] [place] [address] Front End Engineer: Shashi Hutchins MD CT CSPINE WO CONon [...] JOSSY GEE Date: 2020-01-29 19:18 Normal [facility] UA (CLEAN/CATCH) MICROSCOPIC IF INDICATEon 01-17-2020 Bilirubin [Mass/Vol] Negative Normal NEGATIVE [facility] Comment on above: Performed By: #### U ARMICR ####[facility] [address] [place] [address] [place] BLOOD Negative Normal NEGATIVE [facility] Comment on above: Performed By: #### U ARMICR ####[facility] [address] [place] [address] [place] Clarity (U) CLEAR Normal [facility] Comment on above: Performed By: #### U ARMICR ####[facility] [address] [place] [address] [place] Color (U) LT. YELLOW Normal YELLOW [facility] Comment on above: Performed By: #### U ARMICR ####[facility] [address] [place] [address] Glucose [Mass/Vol] Negative Normal NEGATIVE The [facility] Comment on above: Performed By: #### U ARMICR ####[facility] [id number] [address] [place] Ketones Ql (U) Negative Normal NEGATIVE [facility] Comment on above: Performed By: #### U ARMICR ####[facility] [id number] [address] [place] Nitrite Ql (U) Negative Normal NEGATIVE [facility] Comment on above: Performed By: #### U ARMICR ####[facility] [address] [place] [address] [place] pH (Bld) 7.5 Normal 5-9 [facility] Comment on above: Performed By: #### U ARMICR ####[facility] [id number] [place] [address] Protein [Mass/Vol] Negative Normal [facility] Comment on above: Performed By: #### U ARMICR ####[facility] [id number] [place] SPEC GRAVITY 1.015 Normal 1.005-<=1.025 [facility] Comment on above: Performed By: #### U SIOBHANICR ####[facility] [address] [place] [address] [place] UR MICRO IND NOT INDICATED Normal [facility] Comment on above: Performed By: #### U ARMICR ####[facility] [address] [place] [address] [place] Urobilinogen Qn (U) 0.2 EU/dl Normal [facility] Comment on above: Performed By: #### U ARMICR ####[facility] [address] [place] [address] [place] WBC (Bld) [#/Vol] Negative Normal NEGATIVE [facility] Comment on above: Performed By: #### U ARMICR ####[facility] [address] [place] [address] [place] XR DEXA BONE DENSITYon 12-26 XR [...] by: CACHORRO MEDRANO Date: 2019-12-27 11:07 Normal [facility] CT LSPINE WO CONon 0 CT [...] Florin ANDREWS Date: 2019-11-02 23:13 Normal The [facility] CT TSPINE WO CONon [facility] THORACIC SPINE WITHOUT CONTRAST HISTORY: Pain. COMPARISON: None available. TECHNIQUE: Helical CT images were performed of the thoracic spine without intravenous contrast. Dose reduction techniques were achieved by using automated exposure control and/or adjustment of mA and/or kV according to patient size and/or use of iterative reconstruction technique. FINDINGS: CREATIVE ART DIRECTOR RADIOGRAPH: Unremarkable. VERTEBRAL BODIES: Thoracic vertebral bodies [...] CACHORRO FLANNERY Date: 2019-11-02 22:56 Normal [facility] CULTURE URINEon 11-03-2019 CULTURE URINE Culture Observations : Heavy growth of mixed genital fran. No potential pathogens seen. Normal [facility] Comment on above: Performed By: #### U RCX #### [facility] [address] [place], [place] [id number] Jemal [place] ER URINE PROFILEon 0 Bilirubin [Mass/Vol] Negative Normal NEGATIVE [facility] Comment on above: Performed By: #### AUREA SYLVESTERRO #### [facility] [address] [place] [address] [place] BLOOD Negative Normal NEGATIVE [facility] Comment on above: Performed By: #### AUREA SYLVESTERRO #### [facility] [address] [place] [address] J[place] Clarity (U) CLEAR Normal [facility] Comment on above: Performed By: #### AUREA SYLVESTERRO #### [facility] [address] [place] [address] [place] Color (U) YELLOW Normal YELLOW The [facility] Comment on above: Performed By: #### YONNY SYLVESTER #### [facility] [address] [place] [address] J[place] ERUAHD A micrscopic examination will be performed if indicated. Normal [facility] Comment on above: Performed By: #### YONNY SYLVESTER #### [facility] [address] [place] [address] Jemal [place] Glucose [Mass/Vol] Negative Normal NEGATIVE The [facility] Comment on above: Performed By: #### YONNY SYLVESTER #### [facility] [address] [place] [address] Jem[place] Ketones Ql (U) 15 mg/dl Normal NEGATIVE [facility] Comment on above: Performed By: #### YONNY SYLVESTER #### [facility] [address] [place] [address] Jemal [place] Nitrite Ql (U) Negative Normal NEGATIVE [facility] Comment on above: Performed By: #### YONNY SYLVESTER #### [facility] [address] [place] [address] Jemal [place] pH (Bld) 5.0 Normal 5-9 [facility] Comment on above: Performed By: #### YONNY SYLVESTER #### [facility] [address] [place] [address] Jemal Dudley Protein (U) [Mass/Vol] TRACE Normal [facility] Comment on above: Performed By: #### AUREA SYLVESTERRO #### [facility] [address] [place] [address] Jemalmitch Dudley SPEC GRAVITY >=1.030 Normal 1.005-<=1.025 [facility] Comment on above: Performed By: #### YONNY SYLVESTER #### [facility] [address] [place] [address] Jemal Dudley UR MICRO IND INDICATED Normal [facility] Comment on above: Performed By: #### YONNY SYLVESTER #### [facility] [address] [place] [address] Jemal [place]ley Urobilinogen Qn (U) 0.2 EU/dl Normal [facility] Comment on above: Performed By: #### YONNY SYLVESTER #### [facility] [address] [place] [address] Jemal Dudley WBC (Bld) [#/Vol] SMALL Normal NEGATIVE [facility] Comment on above: Performed By: #### AUREA SYLVESTERRO #### [facility] [address] [place] [address] Jemalmitch Dudley URINE MICROSCOPIC ONLYon Bacteria LM.HPF (Urine sed) [#/Area] SMALL Normal NONE SEEN The [facility] Comment on above: Performed By: #### AUREA SYLVESTERRO #### [facility] [address] [place] [address] Jemalmitch Dudley CAST NONE SEEN Normal NONE SEEN [facility] Comment on above: Performed By: #### AUREA SYLVESTERRO #### [facility] [address] [place], [place] [id number] [place] Crystals LM Nom (Urine sed) NONE SEEN Normal NONE SEEN The [facility] Comment on above: Performed By: #### E SREEKANTH, UMNIKKIERO #### [facility] [address] [place] [id number] [place] CULTURE INDICATED Normal [facility] Comment on above: Performed By: #### E SREEKANTH, UMNIKKIERO #### [facility] [address] [place], [place] [address] J[place] Epithelial cells LM.HPF (Urine sed) [#/Area] FEW Normal [facility] Comment on above: Performed By: #### E SREEKANTH, UMNIKKIERO #### [facility] [address] [place], [place] [address] J[place] MUCOUS NONE SEEN Normal NONE SEEN The [facility] Comment on above: Performed By: #### Eufemia STACK, UMNIKKIERO #### [facility] [address] [place] [id number] Jem[place] RBC (U) [#/Vol] NONE SEEN Normal 0-2 [facility] Comment on above: Performed By: #### Eufemia STACK, UMNIKKIERO #### [facility] [address] [place] [id number] Jemal [place] WBC (Bld) [#/Vol] 5-10 Normal NONE SEEN [facility] Comment on above: Performed By: #### E SREEKANTH, UMNIKKIERO #### [facility] [address] [place], [place] [address] [place] XR KNEE RT 4V or [...] SUNI FAUST Date: 2019-11-03 00:02 Normal [facility] CBC W MANUAL DIFFon 11-02-19 20 ACANTHOCYTES 2+ Normal [facility] Comment on above: Performed By: #### Lakshmi OLSON #### [facility] [address] [place] [address] J[place] ATYPICAL LYMPH # Normal [facility] Comment on above: Performed By: #### Lakshmi OLSON #### [facility] [address] [place] [address] Jemal [place] ATYPICAL LYMPH % Normal [facility] Comment on above: Performed By: #### Lakshmi OLSON #### [facility] [address] [place] [address] [place] BAND # 0.4 103/ul Critically high 0.0-0.3 [facility] Comment on above: Performed By: #### Lakshmi OLSON #### [facility] [address] [place] [address] [place] BAND % 2 % Normal 0-5 [facility] Comment on above: Performed By: #### Lakshmi OLSON #### [facility] [address] [place] [address] [place] BASOM # 0.00 103/ul Normal 0.00-0.10 [facility] Comment on above: Performed By: #### Lakshmi OLSON #### [facility] [address] [place] [address] J[place] BASOM % 0.0 % Critically low 0.2-2.0 [facility] Comment on above: Performed By: #### Lakshmi OLSON #### [facility] [address] [place] [address] J[place] BLAST # Normal [facility] Comment on above: Performed By: #### Lakshmi OLSON #### [facility] [address] [place] [address] J[place] BLAST % Normal [facility] Comment on above: Performed By: #### Lakshmi OLSON #### [facility] [address] [place] [address] J[place] CORRECTED WBC Normal 4.0-11.0 [facility] Comment on above: Performed By: #### Lakshmi OLSON #### [facility] [address] [place] [address] Jem[place] Eosinophils (Bld) [#/Vol] 0.00 103/ul Normal 0.00-0.70 [facility] Comment on above: Performed By: #### Lakshmi OLSON #### [facility] [address] [place], [place] [address] Jem[place] Eosinophils/100 WBC (Bld) 0.0 % Critically low 0.9-7.0 [facility] Comment on above: Performed By: #### C WESLEY #### [facility] [address] [place], [place] [address] [place] Erythrocyte distribution width (RBC) [Ratio] 19.8 % Critically high 11.0-15.0 [facility] Comment on above: Performed By: #### Lakshmi OLSON #### [facility] [address] [place] [address] Jemal [place] Hematocrit (Bld) [Volume fraction] 31.4 % Critically low 36.0-48.0 [facility] Comment on above: Performed By: #### Lakshmi OLSON #### [facility] [address] [place], [place] [address] Jemal [place] Hemoglobin (Bld) [Mass/Vol] 10.1 g/dl Critically low 12.0-16.0 [facility] Comment on above: Performed By: #### Lakshmi OLSON #### [facility] [address] [place], [place] [address] Jemal [place] HYPOCHROMASIA SLIGHT Normal [facility] Comment on above: Performed By: #### Lakshmi OLSON #### [facility] [address] [place] [address] Jemal [place] LYMPHM # 2.42 103/ul Normal 1.20-3.80 [facility] Comment on above: Performed By: #### Lakshmi OLSON #### [facility] [address] [place], [place] [address] Jemal [place] LYMPHM% 12.0 % Critically low 20.5-60.0 [facility] Comment on above: Performed By: #### Lakshmi OLSON #### [facility] [address] [place] [address] Jemalmitch Dudley MCH (RBC) [Entitic mass] 23.5 pg Critically low 26.7-34.0 [facility] Comment on above: Performed By: #### C WESLEY #### [facility] [address] [place] [address] Jemalmitch Dudley MCHC (RBC) [Mass/Vol] 32.2 g/dl Normal 29.9-35.2 [facility] Comment on above: Performed By: #### C WESLEY #### [facility] [address] [place] [address] Jemal [place] MCV (RBC) [Entitic vol] 73.0 fL Critically low 81.0-99.0 [facility] Comment on above: Performed By: #### Lakshmi OLSON #### [facility] [address] [place] [address] Jemal [place] METAMYELOCYTE # Normal [facility] Comment on above: Performed By: #### Lakshmi OLSON #### [facility] [address] [place] [address] Jemal [place] METAMYELOCYTE % Normal [facility] Comment on above: Performed By: #### Lakshmi OLSON #### [facility] [address] [place] [address] Jemal [place] MONOM# 0.40 103/ul Normal 0.30-0.80 [facility] Comment on above: Performed By: #### Lakshmi OLSON #### [facility] [address] [place] [address] Jemal [place] MONOM% 2.0 % Normal 1.7-12.0 [facility] Comment on above: Performed By: #### Lakshmi OLSON #### [facility] [address] [place] [address] Jemal [place] MYELOCYTE # Normal [facility] Comment on above: Performed By: #### Lakshmi OLSON #### [facility] [address] [place] [address] Jemal [place] MYELOCYTE % Normal [facility] Comment on above: Performed By: #### Lakshmi OLSON #### [facility] [address] [place] [id number] Jemal [place] NRBC Normal [facility] Comment on above: Performed By: #### Lakshmi OLSON #### [facility] [address] [place] [id number] Jemal [place] OVALOCYTES 1+ Normal [facility] Comment on above: Performed By: #### Lakshmi OLSON #### [facility] [address] [place] [id number] Jemal [place] Platelet mean volume (Bld) [Entitic vol] 10.8 fL Normal 9.5-13.5 [facility] Comment on above: Performed By: #### Lakshmi OLSON #### [facility] [address] [place] [id number] Jemal [place] Platelets (Bld) [#/Vol] 321 103/ul Normal 150-450 [facility] Comment on above: Performed By: #### Lakshmi OLSON #### [facility] [address] [place] [address] Jemal [place] RBC (Bld) [#/Vol] 4.30 106/ul Normal 4.20-5.40 [facility] Comment on above: Performed By: #### Lakshmi OLSON #### [facility] [address] [place] [address] Jemalmitch Chavezen SEG # 16.97 103/ul Critically high 1.40-6.50 [facility] Comment on above: Performed By: #### Lakshmi OLSON #### [facility] [address] [place] [address] Jemal [place] Segmented neutrophils/100 WBC (Bld) 84.0 % Critically high 43.0-75.0 [facility] Comment on above: Performed By: #### Lakshmi OLSON #### [facility] [address] [place] [address] Jemal [place] WBC (Bld) [#/Vol] 20.2 103/ul Critically high 4.0-11.0 [facility] Comment on above: Performed By: ###Juan OLSON #### [facility] [address] [place], [place] [address] Jemalmitch Chavezen PROF 14(COMP METB)on 020 Albumin [Mass/Vol] 3.3 g/dL Critically low 3.5-5.0 Th e [facility] Comment on above: Performed By: #### C MP #### [facility] [address] [place], [place] [address] Jemal [place] Albumin/Globulin [Mass ratio] 1.0 {ratio} Normal [facility] Comment on above: Performed By: #### C MP #### [facility] [address] [place], [place] [address] Jemal [place] ALP [Catalytic activity/Vol] 105 U/L Normal 38-126 [facility] Comment on above: Performed By: #### C MP #### [facility] [address] [place] [address] Jemal [place] ALT [Catalytic activity/Vol] 33 U/L Normal 9-52 [facility] Comment on above: Performed By: #### C MP #### [facility] [address] [place], [place] [address] Jemal [place] Anion gap [Moles/Vol] 11.5 mmol/L Normal [facility] Comment on above: Performed By: #### C MP #### [facility] [address] [place], [place] [address] Jemal [place] AST [Catalytic activity/Vol] 35 U/L Normal 14-36 [facility] Comment on above: Performed By: #### C MP #### [facility] [address] [place], [place] [address] Jemal [place] Bilirubin Ql (U) 0.4 mg/dL Normal 0.2-1.3 [facility] Comment on above: Performed By: #### C MP #### [facility] [address] [place], [place] [address] Jemal [place] Calcium [Mass/Vol] 8.5 mg/dL Normal 8.4-10.[address] [facility] Comment on above: Performed By: #### C MP #### [facility] [address] [place], [place] [address] Jemal [place] Chloride [Moles/Vol] 102 mmol/L Normal 98-107 [facility] Comment on above: Performed By: #### C MP #### [facility] [address] [place] [id number] Jemal [place] CO2 [Moles/Vol] 26.1 mmol/L Normal 22.0-30.0 [facility] Comment on above: Performed By: #### C MP #### [facility] [address] [place] [place] [address] Jemal [place] Creatinine [Mass/Vol] 1.06 mg/dL Critically high 0.52-1.04 [facility] Comment on above: Performed By: #### C MP #### [facility] [address] [place] [address] Jemal [place] EGFR-AF MALTESE 60 mL/min/1.73m2 Normal >=60 Th [facility] Comment on above: Performed By: #### C MP #### [facility] [address] [address] Jemal [place] EGFR-NON AF MALTESE 50 mL/min/1.73m2 Critically low >=60 [facility] Comment on above: Performed By: #### C MP #### [facility] [address] [place] [id number] Jemal [place] Globulin (S) [Mass/Vol] 3.4 g/dL Normal [facility] Comment on above: Performed By: #### C MP #### [facility] [address] [address] Jemal [place] Glucose [Mass/Vol] 165 mg/dL Critically high 74-106 T [facility] Comment on above: Performed By: #### C MP #### [facility] [address] [place] [id number] Jemal [place] Potassium [Moles/Vol] 3.6 mmol/L Normal 3.4-5.0 [facility] Comment on above: Performed By: #### C MP #### [facility] [address] [address] Jemal [place] Protein [Mass/Vol] 6.7 g/dL Normal 6.1-8.2 [facility] Comment on above: Performed By: #### C MP #### [facility] [address] [place] [address] Jemal [place] Sodium [Moles/Vol] 136 mmol/L Critically low 137-145 Th e [facility] Comment on above: Performed By: #### C MP #### [facility] [address] [place], [place] [address] Jemal [place] Urea nitrogen [Mass/Vol] 15.0 mg/dL Normal 7.0-17.0 [facility] Comment on above: Performed By: #### C MP #### [facility] [address] [place] [address] Jemal [place] Urea nitrogen/Creatinin e [Mass ratio] 14.2 mg/mg Normal [facility] Comment on above: Performed By: #### C MP #### [facility] [address] [place] [address] Jemal [place] PROTIMEon 11-02-2019 INR Coag (PPP) [Relative time] 1.10 {INR} Normal [facility] Comment on above: Performed By: #### P T, PTT #### [facility] [address] [place], [place] [address] Jemal [place] PT Coag (PPP) [Time] SEE BELOW Normal [facility] Comment on above: Result Comment: ANNETTE RED INR: 2.0 - 3.0 CONDITIONS NOT LISTED BELOW 2.5 - 3.5 FOR PROSTHETIC HEART VALVE REPLACEMENT 2.5 - 3.5 RECURRENT THROMBOSIS Performed By: #### P T, PTT #### [facility] [address] [place], [place] [address] Jemal [place] PT Coag (PPP) [Time] PLEASE NOTE: NORMAL RANGE CHANGE 02-09-2014 DUE TO REAGENT LOT CHANGE Normal [facility] Comment on above: Performed By: #### P T, PTT #### [facility] [address] [place], [place] [address] Jemal [place] PT Coag (PPP) [Time] 11.4 s Normal 9.0-11.6 [facility] Comment on above: Performed By: #### P T, PTT #### [facility] [address] [place], [place] [address] Jemal Dudley PTTon 11-02-2019 aPTT Coag (Bld) [Time] 31.7 s Normal 22.3-36.2 [facility] Comment on above: Performed By: #### P T, PTT #### [facility] [address] [place], [place] [address] Jemal Dudley aPTT Coag (Bld) [Time] PLEASE NOTE: NORMAL RANGE CHANGE 04-18-2015 DUE TO REAGENT LOT CHANGE Normal [facility] Comment on above: Performed By: #### P T, PTT #### [facility] [address] [place], [place] [address] Jemal Dudley Vital Signs Date Time Vital Sign Value Performing Clinician Facility 03-01-2024 14:24-0400 Body height 170.2 cm [employer] Work Phone: [facility] 03-01-2024 14:24-0400 Body mass index (BMI) [Ratio] 20.88 kg/m2 [employer] DO [facility] 03-01-2024 14:24-0400 Body temperature 97.5 [degF] TimothyWHATT DO [facility] 03-01-2024 14:24-0400 Body weight 60.46 kg [employer] DO [facility] 03-01-2024 14:24-0400 Diastolic blood pressure 58 mm[Hg] [employer] DO [facility] 03-01-2024 14:24-0400 Heart rate 63 /min [employer] DO [facility] 03-01-2024 14:24-0400 SaO2% (BldA) [Mass fraction] 97 % [employer] DO [facility] 03-01-2024 14:24-0400 Systolic blood pressure 120 mm[Hg] Timothy Washington DO Work Phone: [facility] 07-28-2023 14:11-0500 Body height 172.7 cm Pfo [address] [facility] 07-28-2023 14:11-0500 Body mass index (BMI) [Ratio] 18.4 kg/m2 Pfo [address] [facility] 07-28-2023 14:11-0500 Body temperature 97.59 [degF] Pfo 6 [facility] 07-28-2023 14:11-0500 Body weight 54.88 kg Pfo [address] [facility] 07-28-2023 14:11-0500 Diastolic blood pressure 82 mm[Hg] Pfo [address] [facility] 07-28-2023 14:11-0500 Heart rate 78 /min Pfo [address] [facility] 07-28-2023 14:11-0500 Respiratory rate 15 /min Pfo 6 [facility] 07-28-2023 14:11-0500 SaO2% (BldA) [Mass fraction] 100 % Pfo [address] [facility] 07-28-2023 14:11-0500 Systolic blood pressure 141 mm[Hg] Pfo 6 [facility] 02-20-2020 10:33-0400 BMI (Body Mass Index) 17.2 kg/m2 [facility] 02-20-2020 10:33-0400 Body weight 51.25 kg [facility] 02-20-2020 10:33-0400 Height 172.72 cm [facility] 02-20-2020 10:20-0400 Body Temperature 97.7 [degF] [facility] 02-20-2020 10:20-0400 BP Diastolic 79 mm[Hg] [facility] 02-20-2020 10:20-0400 BP Systolic 121 mm[Hg] [facility] 02-20-2020 10:20-0400 Pulse (Heart Rate) 92 /min [facility] 02-20-2020 10:20-0400 Respiratory Rate 18 /min [facility] En[facility] Encounter Date Encounter Type Care Provider Facility Start: 03-01-2024 End: 03-01-2024 Office outpatient visit 15 minutes Timothy Washington DO Work Phone: [facility] Comment on above: Urinary incontinence , unspecified type (Primary Dx); Hypertensive kidney disease with stage 3a chronic kidney disease ([facility]) Start: 03-01-2024 End: 03-01-2024 ambulatory [facility] Start: 12-10-2023 End: 12-10-2023 ambulatory [facility] Start: 12-10-2023 End: 12-10-2023 ambulatory [facility] Start: 07-28-2023 End: 07-28-2023 ambulatory [facility] Start: 07-28-2023 End: 07-28-2023 ambulatory P[facility] Infusion Chair 6 Chapis Guerrier [facility] - Medical Oncology Comment [...] Start: 02-20-2020 End: 02-20-[address] [facility] Start: 01-29-2020 End: 01-29-2020 [...] Adult BMI Screening Adult BMI Screen ing [facility] Start: 03-01-2025 Depression Screening Depression Scre ening [facility] Start: 03-01-2025 Fall Risk Screening Fall Risk Screen ing [facility] Start: 03-01-2025 Tobacco Screening Tobacco Screening [facility] Start: 09-08-2024 End: 09-08-2024 Patient encounter procedure 09/08/2024 1:00 PM EDT Office Visit [facility] [address] [place] [address] Timothy Washington DO [address], [place] [address] [facility] Start: 07-31-2024 DTaP,Tdap and Td Vaccines (2 - Td or Tdap) DTaP,Tdap and Td Vaccines (2 - Td or Tdap) [facility] Start: 05-09-2024 End: 05-09-2024 Patient encounter procedure 05/09/2024 9:50 AM EST Office Visit [facility] [address] [place] [address] Timothy Washington DO [address], [place] [address] [facility] Start: 05-04-2024 Adult BMI Screening Adult BMI Screen ing [facility] Start: 05-04-2024 Depression Screening Depression Scre ening [facility] Start: 05-04-2024 Fall Risk Screening Fall Risk Screen ing [facility] Start: 05-04-2024 Tobacco Screening Tobacco Screening [facility] Start: 01-24-2024 COVID-19 Vaccine ( season) COVID-19 Vaccine () [facility] Start: 01-24-2024 Influenza vaccination Influenza Vacc ine [facility] Start: 07-28-2023 End: 07-28-2023 ambulatory 07/28/2023 2:30 PM EST Infusion [facility] [address] [place] [phone] Chapis Jacob [facility] Start: 01-23-2023 COVID-19 Vaccine ( season) COVID-19 Vaccine () [facility] Start: 01-23-2023 Influenza vaccination Influenza Vacc ine [facility] Start: 02-10-1953 Adult BMI Follow Up Plan Adult BMI Follow Up Plan [facility] Start: 1935 Medicare Annual Well ness Visit Medicare Annual Wellness Visit [facility] Immunizations Immunization Date Immunization Notes Care Provider Fa cility 06-28-2020 COVID-19, mRNA, LNP- S, PF, 30mcg/0.3mL Dose Not Ref Prov [facility] 06-27-2020 COVID-19, mRNA, LNP- S, PF, 30mcg/0.3mL Dose Not Ref Prov [facility] 02-16-2020 influenza, injectabl e, quadrivalent, contains preservative Not Ref Prov [facility] 02-16-2020 influenza virus vacc ine, unspecified formulation Not Ref Prov [facility] 02-15-2019 influenza, high dose seasonal, preservative-free Not Ref Prov [facility] 12-13-2018 zoster vaccine recombinant Not Ref P rov [facility] 06-11-2018 zoster vaccine recombinant Not Ref P rov [facility] 06-10-2018 zoster vaccine recombinant Not Ref P [facility] 02-15-2018 influenza virus vacc ine, unspecified formulation Not Ref [facility] 02-15-2018 Seasonal trivalent influenza vaccine, adjuvanted, preservative free Not Ref [facility] 02-23-2017 influenza, seasonal, injectable Not Ref [facility] 02-25-2016 Seasonal trivalent influenza vaccine, adjuvanted, preservative free Not Ref [facility] 02-23-2016 influenza, high dose seasonal, preservative-free Not Ref [facility] 03-07-2015 influenza, injectabl e, quadrivalent, preservative free Not Ref [facility] 02-26-2015 influenza, injectabl e, quadrivalent, contains preservative Not Ref [facility] 02-22-2015 influenza virus vacc ine, unspecified formulation Not Ref [facility] 07-31-2014 tetanus toxoid, redu ivory diphtheria toxoid, and acellular pertussis vaccine, adsorbed Not Ref [facility] 04-28-2014 influenza, seasonal, injectable Not Ref [facility] 03-13-2014 influenza, high dose seasonal, preservative-free Not Ref [facility] 03-08-2014 zoster vaccine, live Not Ref [facility] 09-01-2013 pneumococcal conjuga te vaccine, 13 valent Not Ref [facility] 09-01-2013 pneumococcal polysaccharide vaccine, 23 valent Not Ref [facility] 03-09-2013 influenza, seasonal, injectable Not Ref [facility] 09-24-2011 zoster vaccine, live Not Ref [facility] 09-18-2011 zoster vaccine, live Not Ref [facility] 05-15-2009 novel influenza-H1N1 -09, preservative-free, injectable Not Ref [facility] 03-17-2001 pneumococcal polysaccharide vaccine, 23 valent Not Ref [facility] Payers Date Payer Category Payer Private Health Insurance [id number] 2001 Medicare MEDICARE MEDICAR E [address]ILRO[address] [id number] 2001-Present [phone] [address] [address] [place] [address] [id number] 1959 Medicare [id number] 1959 Private Health Insurance [id number] 1959 Self-pay [id number] 1936 Unknown [id number] 1936 Unknown [id number] 1936 Unknown [id number] 1936 Unknown [id number] 1936 Unknown [id number] 1936 Unknown [id number] 1936 Unknown [id number] Medicare Self Pay [id number] Unknown [id number] Social History Date Type Detail Facility Start: 04-01-2018 End: 02-20-2020 Tobacco smoking status NHIS Ex-smoker (finding) [facility] Start: 1935 Sex Assigned At Female [facility] History of tobacco use Current smoker [facility] Start: 04-01-2018 Tobacco use and exposure Smokeless tobacco non-user [facility] Start: 07-14-2023 End: 03-01-2024 Alcohol intake Current drinker of alcohol (finding) [facility] Start: 10-13-2022 End: 03-01-2024 History of Social function [facility] Start: 10-13-2022 End: 03-01-2024 Social connection and isolation panel [facility] Do you belong to any clubs or organizations such as christian groups, unions, fraternal or athletic groups, or school groups? No [facility] Are you now , , , , never or living with a partner? [facility] How often to you hav e a drink containing alcohol? Never [facility] How many standard dr inks containing alcohol do you have on a typical day? Patient does not drink [facility] Do you feel stress - tense, restless, nervous, or anxious, or unable to sleep at night because your mind is troubled all the time - these days [OSQ] Not at all [facility] Start: 11-03-2019 Alcohol Comment occassionally [facility] Start: 1935 Sex Assigned At Not on file [facility] Medical Equipment Procedure Code Equipment Code Equipment Origin al Text Equipment Identifier Dates Cmnt [facility] Hvr 30% [id number] Pmma - [id number] - [id number] Start: 11-07-2019 Goals Date Patient Goal [...] presents today with her daughter for a [id number]-[id number] visit to document her need for adult [...] Exam Vitals reviewed. Exam conducted with a statistical analyst present (Ariella). Constitutional: General: She is not [...] disease with stage 3a chronic kidney disease ([facility]) Blood pressure at goal. We will recheck labs in 6 months. [facility]23 History of Present illness Narrative Patient here for reclast infusion. Patient denies any issues or complaints today. She tolerated last years dose well. She denies dental procedures, labs WNL. IV initiated per policy and tolerated well. Reclast administered without complications. NS to flush line. IV D/C'd. Patient accompanied by daughter in stable condition. [facility] 06-15-2020 Note Patient Outreach ([place] OCC3) STEFANICHHAYA Campbell ([id number]) 1935 F Date Time Provider Department 06/15/20 NEPTALI VANN During your visit today, we recorded the following information about you: Allergies As of Date: 06/15/2020 Noted Allergy Reaction CLINDAMYCIN 06/08/2019 2 - Rash LATEX 08/04/2012 2 - Rash SULFA (SULFONAMIDE ANTIBIOTICS) 08/04/2012 5 - Intolerance Date Reviewed: 06/08/2019 Reviewed by: La Russo - Fully Assessed Order(s):SARS-COVID VACCINE 1ST DOSE APPT [[id number]] Order #: [id number] FUTURE Prescriptions as of 06/15/2020 Sig: OCUVITE [...] Encounter Status:Closed by ELOISE SLATER on 06/18/20 [facility] Evaluation note Diagnosis Age-related osteoporosis without current pathological fracture- Primary documented in this encounter [facility] Diagnosis Moderate persistent asthma, unspecified whether complicated- Primary documented in this encounter [facility] Diagnosis Moderate persistent asthma, unspecified whether complicated- Primary documented in this encounter [facility]* Diagnosis Age-related osteoporosis without current pathological fracture- Primary documented [facility]* Diagnosis Urinary incontinence, unspecified type- Primary Hypertensive kidney disease with stage 3a chronic kidney disease ([facility]) documented in this encounter [facility] SystemInstructionsNot on filedocumented in this encounter [facility] filedocumented in this encounter [facility]InstructionsNot on filedocumented in this encounter [facility] SystemInstructionsNot on filedocumented in this encounter 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 Living Will 07/08/2023 3:40 PM LIVING BETTY L 07/08/2023 Living Will 11/16/2019 1:04 PM Durable Power of Business Systems Advisor 11/16/2019 1:04 PM Latest Code Status on [...] DATE CREATED AUTHOR AUTHOR'S ORGANIZ ATION 06/01/2021 [facility] DATE CREATED AUTHOR AUTHOR'S ORGANIZ ATION 07/29/2023 [facility] DATE CREATED AUTHOR AUTHOR'S ORGANIZ ATION 12/14/2023 [facility] DATE CREATED AUTHOR AUTHOR'S ORGANIZ ATION 03/03/2024 [facility] Care Teams (unrecognized sec tion and content) Insurance Sales Professional Relationship Specialty Start Date End Date Timothy Washington DO [address] [place] [address] PCP - General Family Medicine 02/12/17 Insurance Sales Professional Relationship Specialty Start Date End Date Timothy Washington DO [address] [place] [address] PCP - General Family Medicine 02/12/17 Insurance Sales Professional Relationship Specialty Start Date End Date Timothy Washington DO [address] [place] [address] PCP - General Family Medicine 02/12/17 Insurance Sales Professional Relationship Specialty Start Date End Date StephaniagiovanniTimothy henderson [address], [place] [address] PCP - General Family Medicine 02/12/17 Insurance Sales Professional Relationship Specialty Start Date End Date Timothy Washington DO [address], [place] [address] PCP - General Family Medicine 02/12/17 Insurance Sales Professional Relationship Specialty Start Date End Date StephaniagiovanniTimothy henderson DO [address], [place] [address] PCP - General Family Medicine 02/12/17 Reason for Visit (unrecogniz ed section and content) Reason Comments Outpatient Infusion reclast Specialty Diagnoses / Procedures Referred By Contac t Referred To Contact Diagnoses Age-related osteoporosis without current pathological fracture Procedures SD ZOLEDRONIC ACID 1MG Timothy Washington DO [address], [place] [address] Pfo Med Onc [facility] [place] [address] Referral ID Status Reason Start Date Expiration Date V isits Requested Visits Authorized [id number] Authorized 07/18/2023 07/17/2024 1 1 Reason Comments [...] BE BASED ON THE PRIMARY CLINICAL RECORDS. [facility]. provides no warranty or guarantee of the accuracy or completeness of information in this document.
--- NOTE | 2024-06-27 16:48 | CT_ITS ---
[address] [address] Patient Name: BILL KO MRN: [id number] date: 1935 Sex: F Assigned Patient Location: ER Current Patient Location: .MAIN Accession/Order Number: [id number] Exam Date: 06/27/2024 18:00 Report Date: 06/27/2024 20:25 At the request of: GILLIAN SAUER Procedure: CT angio abd aorta runoff EXAM: CT angiogram of the abdomen and pelvis with lower extremity runoff using 100 mL of IV iodinated contrast. 3D images were generated on an independent workstation for better evaluation of the vasculature. Dose reduction technique used: Automated exposure control and/or adjustment of the mA and/or kV according to patient size and/or use of iterative reconstruction technique. REASON FOR EXAM: foot pain COMPARISON: FINDINGS: No aortic dissection, aneurysm, penetrating atheromatous ulcer or intramural hematoma. Mild stenosis at the celiac artery origin. Superior mesenteric, bilateral renal and inferior mesenteric arteries are patent without significant stenosis, aneurysm or dissection. LLE RUNOFF: Common iliac, external iliac, common femoral, profunda femoral, superficial femoral and popliteal arteries are patent without significant stenosis, aneurysm or dissection. Extensive arterial calcifications in the infrapopliteal arteries limits evaluation to some extent although some flow is likely present within the infrapopliteal arteries to the level of the foot with probable flow and the planned arteries. No definite opacification evident in the dorsalis pedis artery. RLE RUNOFF: Occlusion abruptly of the entire course of the popliteal artery as well as the tibioperoneal trunk and proximal posterior tibial and peroneal arteries. Distal reconstitution of the posterior tibial artery. However there may also be occlusions within the plantar arteries. No definite opacification of the dorsalis pedis artery. Common iliac, external iliac, common femoral, profunda femoral, and superficial femoral arteries are patent without significant stenosis, aneurysm or dissection. Extensive popliteal artery calcifications. Small bilateral pleural effusions. Associated dependent atelectasis in both lungs. Lumbar scoliosis. Subacute fractures of the right superior and inferior pubic rami and right pubic body. Prior L1 compression fracture with bone cement vertebral augmentation. Subacute or chronic lower sacral fracture. Osteopenia. Changes of prior distal gastrectomy. Splenectomy. Multiple bilateral renal cysts. Multiple nonobstructing right calyceal tip renal stones. Hepatic cysts. Hysterectomy. Bladder wall thickening. No evidence of appendicitis. No free intraperitoneal air. No free fluid in the abdomen or pelvis. No dilated or thickened loops of small bowel or colon. No hydronephrosis or obstructing renal or ureteral calculi. Liver, pancreas, bilateral kidneys, and bilateral adrenal glands are otherwise unremarkable. Remainder unremarkable. CT/CT angio abd aorta runoff IMPRESSION: 1. Age indeterminate right popliteal artery occlusion and occlusion of the tibioperoneal trunk, proximal posterior tibial, proximal peroneal and plan arteries. 2. No other acute lower extremity arterial abnormalities. 3. Bladder wall thickening could represent cystitis, correlate clinically. 4. Subacute fractures of the right superior and inferior pubic rami and pubic body. 5. Subacute or chronic transverse sacral fracture. Electronically authenticated by: HUSSAIN MCLEAN Date: 06/27/2024 20:25
--- NOTE | 2024-06-27 17:05 | ED_ITS ---
HPI HPI - General Adult General Chief complaint: Extremity Problem, Nontraumatic Stated complaint: venous insuffiency Time Seen by Provider: 06/27/24 16:07 Source: other Source information: ems Mode of arrival: ambulance Limitations: physical limitation History of Present Illness HPI narrative: 89-year-old female presents from [facility] by squad for an issue with her right foot. Its become increasingly discolored and painful. Last week she had a fall and had pelvic fractures which did not require surgery. She was seen by podiatry while in the hospital and had arterial studies performed which showed some stenosis in the right popliteal artery and in the right tibial artery. Since then however her foot has become more painful and more discolored from a purple standpoint and she was sent here for evaluation. The patient has dementia and is unable to provide any significant history. Her daughter accompanies her and provides an excellent history. Related Data Home Medications ?Medication ?Instructions ?Recorded ?Confirmed amlodipine 5 mg tablet 5 mg PO DAILY 06/18/24 06/18/24 donepezil 10 mg tablet 10 mg PO BEDTIME 06/18/24 06/18/24 fluticasone propionate 44 2 inh inhalation BID 06/18/24 06/18/24 mcg/actuation HFA aerosol inhaler (Flovent HFA) ibuprofen 800 mg tablet (IBU) 800 mg PO Q8H PRN pain 06/18/24 06/18/24 lovastatin 10 mg tablet 5 mg PO BEDTIME 06/18/24 06/18/24 mirtazapine 15 mg tablet 15 mg PO BEDTIME 06/18/24 06/18/24 multivitamin 1 tab PO DAILY 06/18/24 06/18/24 ondansetron 4 mg disintegrating 4 mg PO Q6H PRN nausea and vomiting 06/18/24 06/18/24 tablet polyethylene glycol 3350 17 17 g PO BID 06/18/24 06/18/24 gram/dose oral powder sennosides 8.6 mg-docusate sodium 1 tab-cap PO DAILY PRN constipation 06/18/24 06/18/24 50 mg tablet (Senna-S) sertraline 25 mg tablet 12.5 mg PO DAILY 06/18/24 06/18/24 vitamins A,C,T-bhdt-jxrmys 2,148 2 tab PO .QD 06/18/24 06/18/24 mcg-113 mg-45 mg-17.4 mg tablet (PreserVision AREDS) Previous Rx's ?Medication ?Instructions ?Recorded doxycycline monohydrate 100 mg 100 mg PO BID #20 caps 06/23/24 capsule Allergies Allergy/AdvReac Type Severity Reaction Status Date / Time clindamycin Allergy Unknown Unknown Verified 06/27/24 16:10 latex Allergy Unknown Unknown Verified 06/27/24 16:10 Sulfa (Sulfonamide Allergy Unknown Unknown Verified 06/27/24 16:10 Antibiotics) Opioid HPI Opioid Management Most Recent Opioid Data: Last Pain Scale 0 06/22/24 10:16 06/22/24 Last Pain Intensity 0 06/22/24 08:21 06/22/24 Last Pain Assessment 06/23/24 12:00 Last ORT Total Score 1 06/18/24 14:14 06/18/24 Last ORT Risk Category Low Risk 06/18/24 14:14 06/18/24 Review of Systems ROS Narrative Not obtainable, dementia PFSH [facility] Medical History (Updated 06/27/24 @ 17:05 by Modesto Lackey MD) Pressure ulcer, heel, right, unstageable ?L89.610 - Pressure ulcer of right heel, unstageable (ICD-10) Ulcer of right foot with fat layer exposed ?L97.512 - Non-pressure chronic ulcer of other part of right foot with fat layer exposed (ICD-10) PAD (peripheral artery disease) ?I73.9 - Peripheral vascular disease, unspecified (ICD-10) Severe protein-calorie malnutrition ?E43 - Unspecified severe protein-calorie malnutrition (ICD-10) Leukocytosis ?D72.829 - Elevated white blood cell count, unspecified (ICD-10) Acute UTI ?N39.0 - Urinary tract infection, site not specified (ICD-10) Closed fracture of right inferior pubic ramus ?S32.591A - Other specified fracture of right pubis, initial encounter for closed fracture (ICD-10) Closed fracture of right superior pubic ramus ?S32.511A - Fracture of superior rim of right pubis, initial encounter for closed fracture (ICD-10) HTN (hypertension) ?I10 - Essential (primary) hypertension (ICD-10) Dementia ?F03.90 - Unspecified dementia, unspecified severity, without behavioral disturbance, psychotic disturbance, mood disturbance, and anxiety (ICD-10) 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 - Personal history of non-Hodgkin lymphomas (ICD-10) History of anxiety ?Z86.59 - Personal history of other mental and behavioral disorders (ICD-10) Hx of primary hypertension ?Z86.79 - Personal history of other diseases of the circulatory system (ICD- 10) Hx of chronic kidney disease ?Z87.448 - Personal history of other diseases of urinary system (ICD-10) History of depression ?Z86.59 - Personal history of other mental and behavioral disorders (ICD-10) History of malignant neoplasm of uterus ?Z85.42 - Personal history of malignant neoplasm of other parts of uterus (ICD-10) History of asthma ?Z87.09 - Personal history of other diseases of the respiratory system (ICD- 10) Hx of osteoarthritis ?Z87.39 - Personal history of other diseases of the musculoskeletal system and connective tissue (ICD-10) Hx of osteoporosis ?Z87.39 - Personal history of other diseases of the musculoskeletal system and connective tissue (ICD-10) History of dementia ?Z86.59 - Personal history of other mental and behavioral disorders (ICD-10) Surgical History (Updated 06/18/24 @ 14:09 by Halima Stover) H/O: hysterectomy ?Z90.710 - Acquired absence of both cervix and uterus (ICD-10) S/P lumbar fusion ?Z98.1 - Arthrodesis status (ICD-10) Cervical vertebral fusion ?M43.22 - Fusion of spine, cervical region (ICD-10) Family History (Updated 06/18/24 @ 14:10 by Halima Stover) Mother Family history of cancer Father Family history of stroke Family history of hypertension Social History (Updated 06/18/24 @ 14:13 by Halima Stover) Within the past year, how often did you have a drink containing alcohol: monthly or less Smoking status: Former smoker Non-prescribed substance use: denies use Previous occupational history: retired Highest level of school completed/degree received: some college, no degree Are you now , , , , never or living with a partner: Little interest or pleasure in doing things: several days Feeling down, depressed, or hopeless: several days Feel stressed/tense/nervous/anxious/difficulty sleeping: to some extent Life stressors: recent of family or friend Life stressor details: been 15 years since , but still sad Exam Narrative Exam Narrative: Nurses note and vital signs reviewed and patient is not hypoxic. General: The patient appears well and in no apparent distress. Patient is resting comfortably on cart. Skin: Warm, dry, no pallor noted. There is no rash noted. Head: Normocephalic, atraumatic Eye: Normal conjunctiva, no drainage Ears, Nose, Mouth, and Throat: oral mucosa is moist. Nares patent. Cardiovascular: Regular Rate and Rhythm Respiratory: Patient is in no distress, no accessory muscle use, lungs are clear to auscultation, no wheezing, rales or rhonchi Back: non-tender GI: Normal bowel sounds, no tenderness to palpation, no masses appreciated. No rebound, guarding, or rigidity noted. Musculoskeletal: The left foot is not discolored. Palpable bilateral dorsalis pedis pulses are present. The right foot distally is cool to the touch compared to the contralateral. The dorsum and plantar aspects of the toes are all with purple discoloration. Neurological: Awake and alert. Knows her name but not where she is or what year it is or why she is here. Psychiatric: Cooperative Constitutional Vital Signs, click to edit/add: Last Vital Signs Temp 98.9 F 06/27/24 16:05 Pulse 86 06/27/24 16:05 Resp 18 06/27/24 16:05 BP 139/78 06/27/24 16:05 Pulse Ox 95 06/27/24 16:05 O2 Del Method Room Air 06/27/24 16:05 Course Vital Signs Vital signs: Vital Signs Temperature 98.9 F 06/27/24 16:05 Pulse Rate 86 06/27/24 16:05 Respiratory Rate 18 06/27/24 16:05 Blood Pressure 139/78 06/27/24 16:05 Pulse Oximetry 95 06/27/24 16:05 Oxygen Delivery Method Room Air 06/27/24 16:05 Temperature 98.9 F 06/27/24 16:05 Pulse Rate 86 06/27/24 16:05 Respiratory Rate 18 06/27/24 16:05 Blood Pressure 139/78 06/27/24 16:05 Pulse Oximetry 95 06/27/24 16:05 Oxygen Delivery Method Room Air 06/27/24 16:05 Medical Decision Making MDM Narrative Medical decision making narrative: I have spoken to both Dr. Solano and Dr. Sanchez. Dr. Sanchez requested that the patient be placed on heparin and that we order a CT angiogram of the abdomen and pelvis with runoff. He request that she be transferred to [facility] and this is in process. Findings are discussed thoroughly with the patient's daughter who is agreeable to this plan. The patient has DNR CC status and this was discussed with the patient's daughter as well and she is speaking to her siblings. She is willing to have the patient undergo a procedure to save her foot but does not want any significant invasive surgery. Treatment diagnosis and disposition were discussed thoroughly. 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 Differential Diagnosis Differential Diagnosis: Arterial insufficiency Critical Care Time Critical Care Time Critical Care Time: Yes Total Critical Care Time: 40 Attestation: Due to the high probability of sudden and clinically significant deterioration in the patient's condition he/she required the highest level of my preparedness to intervene urgently I provided critical care time including documentation time, medication orders and management, reevaluation, vital sign assessment, ordering and reviewing of lab tests, ordering and reviewing of x-ray studies, and admission orders. Aggregate critical care time is 40 minutes including only time during which I was engaged in work directly related to his/her care and did not include time spent treating other patients simultaneously. Discharge Plan Discharge Chief Complaint: Extremity Problem, Nontraumatic Clinical Impression: Arterial insufficiency [facility] Time of Disposition Decision: 17:05 Discharge Location: [facility] Condition: Fair Mode of Transportation: EMS
[2024-06-27 17:11] LABS: Hematocrit 30.7 % (36.0-48.0); Hemoglobin 9.6 g/dL (12.0-16.0); Mean Corpuscular HGB Conc 31.3 g/dL (29.9-35.2); Mean Corpuscular Hemoglobin 22.6 pg (26.7-34.0); Mean Corpuscular Volume 72.4 fL (81.0-99.0); Mean Platelet Volume 10.3 fL (9.5-13.5); Platelet Count 770 10^3/uL (150-450); Red Blood Count 4.24 10^6/uL (4.20-5.40); Red Cell Distribution Width 27.9 % (11.0-15.0); White Blood Count 19.8 10^3/uL (4.0-11.0)
[2024-06-27 17:18] LABS: Anion Gap 3.3; Calcium 8.3 mg/dL (8.5-10.1); Carbon Dioxide 26.7 mmol/L (21.0-32.0); Chloride 102 mmol/L (98-107); Estimated GFR (African America >60 (>=60 mL/min/1.73m^2); Estimated GFR (Non-African Ame 59 (>=60 mL/min/1.73m^2); Glucose 93 mg/dL (74-106); Sodium 128 mmol/L (136-145)
[2024-06-27] MEDS: HEPARIN SODIUM,PORCINE/D5W 25,000 UNIT/500 ML IV.SOLN 24 UNIT IV (17:18)
[2024-06-27] MEDS: HEPARIN SODIUM (PORCINE) 5,000 UNIT/ML VIAL 3600 UNIT IV (17:18)
[2024-06-27 17:25] LABS: INR 1.13; Partial Thromboplastin Time 36.1 sec (22.3-36.2); Prothrombin Time 11.8 sec (9.0-11.6)
[2024-06-27 17:30] LABS: Lymphocytes Absolute Manual 2.17 10^3/uL (1.20-3.80); Monocytes Absolute Manual 1.78 10^3/uL (0.30-0.80); Segmented Neut Absolute Manual 15.84 10^3/uL (1.4-6.5)
[2024-06-27 17:31] LABS: Anisocytosis 3+; Microcytosis 2+; Ovalocytes 1+; Target Cells 1+
[2024-06-27 17:51] VITALS: BP 127/88; PULSE 84; TEMP 36.6; O2SAT 99
[2024-06-27 18:50] VITALS: PULSE 74; O2SAT 95
--- NOTE | 2024-06-27 20:12 | ED.EXTPRO1 ---
HPI - Extremity Problem General Chief complaint: Extremity Problem, Nontraumatic Stated complaint: venous insuffiency Time Seen by Provider: 06/27/24 16:07 Source: other Source comment: ems Mode of arrival: ambulance Limitations: physical limitation History of Present Illness HPI Narrative: This 89-year-old female was signed out to me at shift change. Shortly after shift change I received a call that she has been accepted for an ER to ER transfer to [facility] under the service of Dr. Sanchez, vascular surgery. CT scan of the abdomen pelvis with runoff is pending at this time however the surgeon did not require the CAT scan to be read prior to accepting her for transfer. She has remained hemodynamically stable on heparin while in the emergency department. The patient's daughter was updated as to the plan of care. Related Data Home Medications ?Medication ?Instructions ?Recorded ?Confirmed amlodipine 5 mg tablet 5 mg PO DAILY 06/18/24 06/18/24 donepezil 10 mg tablet 10 mg PO BEDTIME 06/18/24 06/18/24 fluticasone propionate 44 2 inh inhalation BID 06/18/24 06/18/24 mcg/actuation HFA aerosol inhaler (Flovent HFA) ibuprofen 800 mg tablet (IBU) 800 mg PO Q8H PRN pain 06/18/24 06/18/24 lovastatin 10 mg tablet 5 mg PO BEDTIME 06/18/24 06/18/24 mirtazapine 15 mg tablet 15 mg PO BEDTIME 06/18/24 06/18/24 multivitamin 1 tab PO DAILY 06/18/24 06/18/24 ondansetron 4 mg disintegrating 4 mg PO Q6H PRN nausea and vomiting 06/18/24 06/18/24 tablet polyethylene glycol 3350 17 17 g PO BID 06/18/24 06/18/24 gram/dose oral powder sennosides 8.6 mg-docusate sodium 1 tab-cap PO DAILY PRN constipation 06/18/24 06/18/24 50 mg tablet (Senna-S) sertraline 25 mg tablet 12.5 mg PO DAILY 06/18/24 06/18/24 vitamins A,C,C-vmtz-tckozb 2,148 2 tab PO .QD 06/18/24 06/18/24 mcg-113 mg-45 mg-17.4 mg tablet (PreserVision AREDS) Previous Rx's ?Medication ?Instructions ?Recorded doxycycline monohydrate 100 mg 100 mg PO BID #20 caps 06/23/24 capsule Allergies Allergy/AdvReac Type Severity Reaction Status Date / Time clindamycin Allergy Unknown Unknown Verified 06/27/24 16:10 latex Allergy Unknown Unknown Verified 06/27/24 16:10 Sulfa (Sulfonamide Allergy Unknown Unknown Verified 06/27/24 16:10 Antibiotics) [facility] Medical History (Updated 06/27/24 @ 17:05 by Modesto Lackey MD) Pressure ulcer, heel, right, unstageable ?L89.610 - Pressure ulcer of right heel, unstageable (ICD-10) Ulcer of right foot with fat layer exposed ?L97.512 - Non-pressure chronic ulcer of other part of right foot with fat layer exposed (ICD-10) PAD (peripheral artery disease) ?I73.9 - Peripheral vascular disease, unspecified (ICD-10) Severe protein-calorie malnutrition ?E43 - Unspecified severe protein-calorie malnutrition (ICD-10) Leukocytosis ?D72.829 - Elevated white blood cell count, unspecified (ICD-10) Acute UTI ?N39.0 - Urinary tract infection, site not specified (ICD-10) Closed fracture of right inferior pubic ramus ?S32.591A - Other specified fracture of right pubis, initial encounter for closed fracture (ICD-10) Closed fracture of right superior pubic ramus ?S32.511A - Fracture of superior rim of right pubis, initial encounter for closed fracture (ICD-10) HTN (hypertension) ?I10 - Essential (primary) hypertension (ICD-10) Dementia ?F03.90 - Unspecified dementia, unspecified severity, without behavioral disturbance, psychotic disturbance, mood disturbance, and anxiety (ICD-10) 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 - Personal history of non-Hodgkin lymphomas (ICD-10) History of anxiety ?Z86.59 - Personal history of other mental and behavioral disorders (ICD-10) Hx of primary hypertension ?Z86.79 - Personal history of other diseases of the circulatory system (ICD-10) Hx of chronic kidney disease ?Z87.448 - Personal history of other diseases of urinary system (ICD-10) History of depression ?Z86.59 - Personal history of other mental and behavioral disorders (ICD-10) History of malignant neoplasm of uterus ?Z85.42 - Personal history of malignant neoplasm of other parts of uterus (ICD-10) History of asthma ?Z87.09 - Personal history of other diseases of the respiratory system (ICD-10) Hx of osteoarthritis ?Z87.39 - Personal history of other diseases of the musculoskeletal system and connective tissue (ICD-10) Hx of osteoporosis ?Z87.39 - Personal history of other diseases of the musculoskeletal system and connective tissue (ICD-10) History of dementia ?Z86.59 - Personal history of other mental and behavioral disorders (ICD-10) Surgical History (Updated 06/18/24 @ 14:09 by Halima Stover) H/O: hysterectomy ?Z90.710 - Acquired absence of both cervix and uterus (ICD-10) S/P lumbar fusion ?Z98.1 - Arthrodesis status (ICD-10) Cervical vertebral fusion ?M43.22 - Fusion of spine, cervical region (ICD-10) Family History (Updated 06/18/24 @ 14:10 by Halima Stover) Mother Family history of cancer Father Family history of stroke Family history of hypertension Social History (Updated 06/18/24 @ 14:13 by Halima Stover) Within the past year, how often did you have a drink containing alcohol: monthly or less Smoking status: Former smoker Non-prescribed substance use: denies use Previous occupational history: retired Highest level of school completed/degree received: some college, no degree Are you now , , , , never or living with a partner: Little interest or pleasure in doing things: several days Feeling down, depressed, or hopeless: several days Feel stressed/tense/nervous/anxious/difficulty sleeping: to some extent Life stressors: recent of family or friend Life stressor details: been 15 years since , but still sad Exam Constitutional Vital Signs, click to edit/add: Last Vital Signs Temp 97.9 F 06/27/24 17:51 Pulse 74 06/27/24 18:50 Resp 15 06/27/24 18:50 BP 127/88 06/27/24 17:51 Pulse Ox 95 06/27/24 18:50 O2 Del Method Room Air 06/27/24 16:05 Course Vital Signs Vital signs: Vital Signs Temperature 98.9 F 06/27/24 16:05 Pulse Rate 86 06/27/24 16:05 Respiratory Rate 18 06/27/24 16:05 Blood Pressure 139/78 06/27/24 16:05 Pulse Oximetry 95 06/27/24 16:05 Oxygen Delivery Method Room Air 06/27/24 16:05 Temperature 97.9 F 06/27/24 17:51 Pulse Rate 74 06/27/24 18:50 Respiratory Rate 15 06/27/24 18:50 Blood Pressure 127/88 06/27/24 17:51 Pulse Oximetry 95 06/27/24 18:50 Oxygen Delivery Method Room Air 06/27/24 16:05 MDM - Extremity (Nontraumatic) Lab Data Labs: Lab Results 06/27/24 Range/Units 16:35 WBC 19.8 H (4.0-11.0) 10^3/uL RBC 4.24 (4.20-5.40) 10^6/uL Hgb 9.6 L (12.0-16.0) g/dL Hct 30.7 L (36.0-48.0) % MCV 72.4 L (81.0-99.0) fL MCH 22.6 L (26.7-34.0) pg MCHC 31.3 (29.9-35.2) g/dL RDW 27.9 H (11.0-15.0) % Plt Count 770 H (150-450) 10^3/uL MPV 10.3 (9.5-13.5) fL Seg Neuts % (Manual) 80.0 H (43.0-75.0) Lymphocytes % (Manual) 11.0 L (20.5-60.0) % Monocytes % (Manual) 9.0 (1.7-12.0) % Eosinophils % (Manual) 0.0 L (0.9-7.0) % Basophils % (Manual) 0.0 L (0.2-2.0) % Neutrophils # (Manual) 15.84 H (1.4-6.5) 10^3/uL Lymphocytes # (Manual) 2.17 (1.20-3.80) 10^3/uL Monocytes # (Manual) 1.78 H (0.30-0.80) 10^3/uL Eosinophils # (Manual) 0.00 (0.00-0.70) 10^3/uL Basophils # (Manual) 0.00 (0.00-0.10) 10^3/uL Anisocytosis 3+ Microcytosis 2+ Target Cells 1+ Ovalocytes 1+ PT 11.8 H (9.0-11.6) sec INR 1.13 APTT 36.1 (22.3-36.2) sec Sodium 128 L (136-145) mmol/L Potassium 4.0 (3.5-5.1) mmol/L Chloride 102 (98-107) mmol/L Carbon Dioxide 26.7 (21.0-32.0) mmol/L Anion Gap 3.3 BUN 18.0 (7.0-18.0) mg/dL Creatinine 0.90 (0.55-1.02) mg/dL Est GFR ( Amer) >60 (>=60 mL/min/1.73m^2) Est GFR (Non-Af Amer) 59 L (>=60 mL/min/1.73m^2) BUN/Creatinine Ratio 20.0 Glucose 93 (74-106) mg/dL Calcium 8.3 L (8.5-10.1) mg/dL Discharge Plan Discharge Chief Complaint: Extremity Problem, Nontraumatic Clinical Impression: Arterial insufficiency Patient Disposition: [facility] Time of Disposition Decision: 17:05 Discharge Location: [facility] Condition: Fair Mode of Transportation: EMS
[2024-06-27 20:54] VITALS: BP 149/89; PULSE 84; O2SAT 95
[2024-06-27] MEDS: ONDANSETRON PF 4 MG/2 ML VIAL IV (21:19)
[2024-06-27] MEDS: MORPHINE SULFATE 2 MG/ML SYRINGE IV (21:19)
[2024-06-27 21:32] VITALS: BP 148/89; PULSE 83; O2SAT 97
== END 2024-06-27 21:32 | disposition short-term general hospital (02) ==
PROVIDERS: Emergency Medicine; Emergency Provider Emergency Medicine; PCP Family Medicine
DX: I87.2 Venous insufficiency (chronic) (peripheral) (principal); Z90.710 Acquired absence of both cervix and uterus; Z98.1 Arthrodesis status; Z87.891 Personal history of nicotine dependence; I70.201 Unspecified atherosclerosis of native arteries of extremities, right leg; F03.90 Unspecified dementia, unspecified severity, without behavioral disturbance, psychotic disturbance, mood disturbance, and anxiety; Z66 Do not resuscitate; Z63.4 Disappearance and death of family member; M79.671 Pain in right foot
CPT/HCPCS: 36415; 75635; 80048; 85007; 85027; 85610; 85730; 96365; 96366; 96375; 96376; 99285; J1644; J2270; J2405; Q9967